=== PATIENT | female | born 1960 | race Caucasian/White ===

== ENCOUNTER → 2016-07-26 | Outpatient (CLI) | payer MEDICAID ==
[~2016-07-26] MED LIST: REGADENOSON INJ 0.4 MG/5 ML DISP.SYRIN IV ONE
--- NOTE | 2016-07-26 19:12 | DRAGON STRESS TEST REPORT ---
Intravenous Lexiscan Cardiolite stress test using single photon emmision computerized tomography. Date of procedure: Ordering Provider: Indication: Chest pain. Coronary risk factors: Resting EKG: Stress EKG:[ No changes of ischemia. Reason for termination: Protocol. Conclusions: Normal EKG and hemodynamic response to IV Lexiscan. Nuclear data: At rest the patient was given millicuries of technetium 99m sestamibi injected intravenously. As per protocol rest non gated SPECT images were obtained. Subsequently the patient was given intravenous Lexiscan at a dose of 0.4 mg in 5 mL intravenously, followed by flush with normal saline. Subsequently the stress dose of millicuries of technetium 99m sestamibi was injected intravenously. As per protocol stress gated images were obtained. Nuclear interpretation: Review of images showed that all segments of the myocardium had normal perfusion at rest, and normal perfusion post stress with IV Lexiscan. All segments of the myocardium had normal motion, contraction, and thickening by gated study. T. I D. ratio was normal at . Computer read rest, and stress left ventricular ejection fraction were %, and %, respectively. Visually both the stress and rest ejection fractions were normal, and greater than 55%. Conclusion: 1. There is no scintigraphic evidence of Lexiscan induced myocardial ischemia. 2. There is no scintigraphic evidence of myocardial infarction/scar. Recommendations: Aggressive risk factor modification, and treating the underlying co- morbidities. MTDD
== END ==
LOC: RAD 07:48
PROVIDERS: ATTEND Specialist
DX: R07.9 Chest pain, unspecified (principal); R06.09 Other forms of dyspnea
CPT/HCPCS: 93017; 78452; A9500; J2785; Q9969

== ENCOUNTER 2016-10-04 12:17 | Emergency (ER) | payer MEDICAID ==
[2016-10-04 12:27] VITALS: BP 132/95
[2016-10-04] MEDS ORDERED: NORMAL SALINE 1000 ML 1,000 ML IV PRN (12:27)
--- NOTE | 2016-10-04 12:40 | ER Document Report ---
ED GI/ - General Chief Complaint: Abdominal Pain Stated Complaint: ABDOMINAL PAIN Time seen by provider: 12:38 Mode of Arrival: Ambulatory Information source: Patient TRAVEL OUTSIDE OF THE [place] IN LAST 30 DAYS: No - HPI Patient complains to provider of: Dysuria Onset: Yesterday Timing/Duration: Gradual, Persistent Quality of pain: Achy, Cramping, Fullness, Pressure Severity at maximum: Moderate Severity in ED: Moderate Pain Level: 2 Location: Suprapubic Vaginal bleeding (Compared to normal period): None Associated symptoms: Diarrhea, Dysuria Exacerbated by: Denies Relieved by: Denies Similar symptoms previously: No Recently seen / treated by doctor: Yes Notes: 10/04/16 12:39 Patient is a 56-year-old female who presents to the emergency room complaining of suprapubic pain and pressure that's been going on since yesterday, she reports crampy pain as well, as well as dysuria, denies vaginal bleeding or discharge, she reports having diarrhea for the past 3 months and has been seen by her primary care provider for this, she denies any recent fever, states she has ongoing GI issues and therefore only eats one meal a day, reports a normal Pap smear approximately 2 weeks ago, patient denies ever having had a urinary tract or bladder infection before - Related Data Allergies/Adverse Reactions: aspirin [Aspirin] Allergy (Intermediate, Verified 10/04/16 12:24) rash, vomiting Home Medications: Current Home Medications Apixaban [Eliquis] 1 tab PO BID 10/04/16 [History] Baclofen [Baclofen] 1 tab PO BID 10/04/16 [History] Budesonide/Formoterol Fumarate [Symbicort 160-4.5 Mcg Inhaler] 1 puff IH BID 08/18 [History] Colchicine [Colchicine] 1 tab PO PRN PRN 10/04/16 [History] Diltiazem HCl 60 mg PO TID 10/04/16 [History] Omeprazole [Omeprazole] 1 tab PO BID 10/04/16 [History] Oxycodone HCl/Acetaminophen [Oxycodon-Acetaminophen 7.5-325] 1 tab PO TID [History] Oxycodone HCl/Acetaminophen [Xartemis Xr 7.5-325 mg Tablet] 2 ng PO Q12H [History] Simvastatin [Simvastatin] 1 tab PO QHS 10/04/16 [History] Past Medical History - General Information source: Patient - Social History Smoking Status: Current Every Day Smoker Family History: Reviewed & Not Pertinent Patient has suicidal ideation: No Patient has homicidal ideation: No - Past Medical History Cardiac Medical History: Reports: Hx Atrial Fibrillation, Hx Hypercholesterolemia - States in past, but not sure now, Hx Hypertension, Hx Heart Murmur Denies: Hx Congestive Heart Failure, Hx Coronary Artery Disease, Hx Heart Attack, Hx Peripheral Vascular Disease, Hx Pulmonary Embolism Pulmonary Medical History: Reports: Hx COPD, Hx Pneumonia, Hx Sleep Apnea Denies: Hx Asthma, Hx Bronchitis, Hx Respiratory Failure, Hx Tuberculosis Endocrine Medical History: Reports: Hx Diabetes Mellitus Type 2 Renal/ Medical History: Reports: Hx Ovarian Cysts. Denies: Hx Peritoneal Dialysis GI Medical History: Reports: Hx Gastroesophageal Reflux Disease, Hx Irritable Bowel - DIARRHEA TYPE, Hx Ulcer. Denies: Hx Crohn's Disease, Hx Hiatal Hernia Musculoskeltal Medical History: Reports Hx Arthritis, Denies Hx Muscular Dystrophy Psychiatric Medical History: Reports: Hx Anxiety, Hx Depression Denies: Hx Bipolar Disorder, Hx Post Traumatic Stress Disorder, Hx Schizophrenia Traumatic Medical History: Reports: Hx Fractures - Clavicle, nose, cheek bone Past Surgical History: Reports: Hx Section. Denies: Hx Appendectomy, Hx Bowel Surgery, Hx Cholecystectomy, Hx Colostomy, Hx Coronary Artery Bypass Graft, Hx Gastric Bypass Surgery, Hx Herniorrhaphy, Hx Hysterectomy, Hx Mastectomy, Hx Pacemaker, Hx Tonsillectomy, Hx Tubal Ligation - Immunizations Hx Diphtheria, Pertussis, Tetanus Vaccination: Yes Hx Pneumococcal Vaccination: 09/23/11 Review of Systems - Review of Systems Constitutional: No symptoms reported EENT: No symptoms reported Cardiovascular: No symptoms reported Respiratory: No symptoms reported Gastrointestinal: See HPI Genitourinary: See HPI Female Genitourinary: No symptoms reported Musculoskeletal: No symptoms reported Skin: No symptoms reported Hematologic/Lymphatic: No symptoms reported Neurological/Psychological: No symptoms reported -: Yes All other systems reviewed and negative Physical Exam - Vital signs Vitals: Temp Pulse Resp BP Pulse Ox 97.9 F 106 H 20 132/95 H 98 10/04/16 12:24 10/04/16 12:24 10/04/16 12:24 10/04/16 12:24 10/04/16 12:24 Interpretation: Tachycardic - General General appearance: Appears well, Alert - HEENT Head: Normocephalic, Atraumatic Eyes: Normal Pupils: PERRL - Respiratory Respiratory status: No respiratory distress Chest status: Nontender Breath sounds: Normal Chest palpation: Normal - Cardiovascular Rhythm: Regular Heart sounds: Normal auscultation Murmur: No - Abdominal Inspection: Normal Distension: No distension Bowel sounds: Normal Tenderness: Tender - Suprapubic Organomegaly: No organomegaly - Back Back: Normal, Nontender - Extremities General upper extremity: Normal inspection, Nontender, Normal color, Normal ROM , Normal temperature General lower extremity: Normal inspection, Nontender, Normal color, Normal ROM , Normal temperature, Normal weight bearing. No: Lefty's sign - Neurological Neuro grossly intact: Yes Cognition: Normal Orientation: AAOx4 [place] Coma Scale Eye Opening: Spontaneous [place] Coma Scale Verbal: Oriented [place] Coma Scale Motor: Obeys Commands [place] Coma Scale Total: 15 Speech: Normal Motor strength normal: LUE, RUE, LLE, RLE Sensory: Normal - Psychological Associated symptoms: Normal affect, Normal mood - Skin Skin Temperature: Warm Skin Moisture: Dry Skin Color: Normal Course - Vital Signs Vital signs: Temp Pulse Resp BP Pulse Ox 97.9 F 106 H 20 132/95 H 98 10/04/16 12:24 10/04/16 12:24 10/04/16 12:24 10/04/16 12:24 10/04/16 12:24 - Laboratory Result Diagrams: 10/04/16 12:50 10/04/16 15:05 Laboratory results interpreted by me: 10/04/16 10/04/16 10/04/16 12:50 12:50 15:05 WBC 11.7 H Hgb 16.0 H Hct 47.3 H RDW 14.8 H Direct Bilirubin 0.6 H AST 49 H Urine Protein 30 H Urine Urobilinogen 2.0 H Urine Ascorbic Acid 20 H Discharge - Discharge Clinical Impression: Dysuria, Pelvic pain Condition: Stable Disposition: HOME, SELF-CARE Instructions: Abdominal Pain ([facility]), Gastroenterology Additional Instructions: Follow up with your primary care provider in one to 2 days. Return to the emergency room immediately if symptoms worsen or any additional concerns. Prescriptions: Ciprofloxacin HCl [Cipro 500 mg Tablet] 500 mg PO BID #20 tablet Forms: Smoking Cessation Education
[2016-10-04 13:02] LABS: ABSOLUTE BASOPHILS # (AUTO) 0.1 10^3/uL (0.0-0.2); ABSOLUTE EOSINOPHILS # (AUTO) 0.2 10^3/uL (0.0-0.6); ABSOLUTE LYMPHOCYTES (AUTO) 3.8 10^3/uL (0.5-4.7); ABSOLUTE MONOCYTES (AUTO) 0.8 10^3/uL (0.1-1.4); ABSOLUTE NEUT (AUTO) 6.7 10^3/uL (1.7-8.2); BASOPHILS % (AUTO) 0.6 % (0-2); EOSINOPHILS % (AUTO) 2.1 % (0-6); HEMATOCRIT 47.3 % (36.0-47.0); HGB HCT DIFFERENCE 0.7; LYMPHOCYTES % (AUTO) 32.4 % (13-45); MEAN CORPUSCULAR HEMOGLOBIN 32.5 pg (27.0-33.4); MEAN CORPUSCULAR HGB CONC 33.8 g/dL (32.0-36.0); MEAN CORPUSCULAR VOLUME 96 fl (80-97); MONOCYTES % (AUTO) 7.1 % (3-13); RED BLOOD COUNT 4.93 10^6/uL (3.72-5.28); RED CELL DISTRIBUTION WIDTH 14.8 % (11.5-14.0); SEGMENTED NEUTROPHILS % (AUTO) 57.8 % (42-78); WHITE BLOOD COUNT 11.7 10^3/uL (4.0-10.5)
[2016-10-04 13:33] LABS: APPEARANCE,URINE CLOUDY; BILIRUBIN,URINE NEGATIVE (NEGATIVE); GLUCOSE, URINE NEGATIVE (NEGATIVE); KETONES,URINE NEGATIVE (NEGATIVE); LEUKOCYTE ESTERASE,URINE NEGATIVE (NEGATIVE); NITRITE,URINE NEGATIVE (NEGATIVE); PROTEIN,URINE 30 mg/dL (NEGATIVE); URINE SPECIFIC GRAVITY 1.031
[2016-10-04] MEDS ORDERED: OXYCODONE-ACETAMINOPHEN 5-325 MG TABLET PO ONE (14:29)
[2016-10-04 15:38] LABS: ALANINE AMINOTRANSFERASE 35 U/L (9-52); ALBUMIN 4.1 g/dL (3.5-5.0); ALKALINE PHOSPHATASE 118 U/L (38-126); ANION GAP 16 (5-19); ASPARTATE AMINO TRANSFERASE 49 U/L (14-36); BILIRUBIN,DIRECT 0.6 mg/dL (0.0-0.4); BILIRUBIN,TOTAL 1.1 mg/dL (0.2-1.3); BLOOD UREA NITROGEN 7 mg/dL (7-20); CALCIUM 9.7 mg/dL (8.4-10.2); CARBON DIOXIDE 23 mmol/L (22-30); CHLORIDE 104 mmol/L (98-107); CREATININE RESULT 0.54 mg/dL (0.52-1.25); GLUCOSE 105 mg/dL (75-110); LIPASE 99.8 U/L (23-300); SODIUM 143.1 mmol/L (137-145); TOTAL PROTEIN 7.4 g/dL (6.3-8.2)
== END 2016-10-04 16:22 | disposition home or self-care (01) ==
LOC: ER 12:17
DX: R10.2 Pelvic and perineal pain (principal); R30.0 Dysuria; R19.7 Diarrhea, unspecified; R00.0 Tachycardia, unspecified; I10 Essential (primary) hypertension; E11.9 Type 2 diabetes mellitus without complications; J44.9 Chronic obstructive pulmonary disease, unspecified; F17.200 Nicotine dependence, unspecified, uncomplicated; Z87.42 Personal history of other diseases of the female genital tract; Z88.6 Allergy status to analgesic agent; Z87.19 Personal history of other diseases of the digestive system
CPT/HCPCS: 36415; 76380; 80053; 81001; 83690; 85025; 87086; 99284

== ENCOUNTER → 2017-07-10 | Outpatient (CLI) | payer MEDICAID ==
--- NOTE | 2017-07-10 20:00 | RADIOLOGY REPORT (SQ) ---
EXAM DESCRIPTION: MRI CERVICAL SPINE WITHOUT COMPLETED DATE/TIME: 07/10/2017 6:40 pm REASON FOR STUDY: SPINAL STENOSIS,CERVICAL REGION/OTHER INTERVERTEBRAL DISC DISPLACEMENT,LUMB M48.02 SPINAL STENOSIS, CERVICAL REGION M51.26 OTHER INTERVERTEBRAL DISC DISPLACEMENT, LUMBAR REGION COMPARISON: 09/11/2015 TECHNIQUE: Sagittal and Axial imaging includes T1, T2, STIR and gradient echo sequences. LIMITATIONS: None. FINDINGS: ALIGNMENT: Normal. VERTEBRAE: Intact. BONE MARROW: Reactive endplate changes C4-5, C5-6, C6-7. DISCS: Generalized loss of T2 signal and loss of height. HARDWARE: None in the spine. CORD AND BASE OF BRAIN: Normal in size and signal intensity. SOFT TISSUES: No soft tissue masses. C1-C2: No significant spinal stenosis. C2-C3: No significant spinal stenosis or exit foraminal stenosis. C3-C4: Disc osteophyte complex asymmetric left left lateral mass hypertrophy. . Flattening of the a nterior thecal sac. Moderate narrowing of the exit foramina left greater than right. C4-C5: Disc osteophyte complex. Flattening of the anterior thecal sac. Moderate to marked narrowing of the exit foramina. C5-C6: Disc osteophyte complex with moderate flattening of the anterior thecal sac. Marked narrowing of the exit foramina left greater than right. C6-C7: Prominent disc osteophyte complex with marked flattening of the anterior thecal. Severe narro wing of the exit foramina and severe spinal stenosis. Obliteration of CSF spaces. C7-T1: No significant spinal stenosis or exit foraminal stenosis. UPPER THORACIC: Incompletely imaged. No significant spinal stenosis or exit foraminal stenosis. OTHER: No other significant finding. IMPRESSION: Multilevel spondylosis with spinal stenosis and exit foraminal stenosis. Most severe changes are at C6-7 where there is severe narrowing of the exit foramina and severe spina l stenosis. Slightly worse than previous. TECHNICAL DOCUMENTATION: JOB ID: [id number] [employer]- All Rights Reserved
--- NOTE | 2017-07-11 08:16 | RADIOLOGY REPORT (SQ) ---
EXAM DESCRIPTION: MRI LUMBAR SPINE WITHOUT COMPLETED DATE/TIME: 07/10/2017 6:57 pm REASON FOR STUDY: SPINAL STENOSIS,CERVICAL REGION/OTHER INTERVERTEBRAL DISC DISPLACEMENT,LUMB M48.02 SPINAL STENOSIS, CERVICAL REGION M51.26 OTHER INTERVERTEBRAL DISC DISPLACEMENT, LUMBAR REGION COMPARISON: CT abdomen pelvis 10/04/2016 MRI lumbar spine 09/11/2015 Lumbar spine plain films 07/08/2015 TECHNIQUE: Sagittal and Axial imaging includes T1, T2, STIR and gradient echo sequences. Coronal T2/ HASTE imaging. LIMITATIONS: None. FINDINGS: VISUALIZED UPPER ABDOMEN: Limited evaluation. No acute or suspicious findings suggested. SEGMENTATION: No transitional anatomy. The lowest well-developed disc space is labeled L5-S1. ALIGNMENT: Anatomic. VERTEBRAE: Intact. BONE MARROW: Normal. No marrow replacement or reactive changes. DISC SIGNAL: Disc space loss of height and decreased T2 weighted intervertebral disc signal at T11-12 and L4-5. POSTERIOR ELEMENTS: Generally intact. No pars defect evident. HARDWARE: None in the spine. CORD AND CONUS: Normal in size and signal intensity. Conus at the L1-2 level. SOFT TISSUES: No aortic aneurysm seen. No bulky retroperitoneal adenopathy or mass. No paraspinal mas s or fluid. T11-12: At the upper edge of the field of view. Mild bilateral facet hypertrophy. No significant c entral or foraminal encroachment. T12-L1: Unremarkable L1-L2: Mild bilateral facet hypertrophy. No central or foraminal stenosis. L2-L3: Mild bilateral facet hypertrophy. No central or foraminal stenosis. L3-L4: Borderline central canal narrowing results from broad diffuse posterior disc bulge and bulky b ilateral facet and ligament hypertrophy best shown on axial T2 image 14. No significant foraminal na rrowing. L4-L5: Borderline central canal narrowing results from broad diffuse posterior disc bulge and bony sp urring and moderate bilateral facet and ligament hypertrophy. This is best shown on axial T2 image 2 0. There is mild bilateral inferior foraminal narrowing without exiting L4 nerve root impingement. L5-S1: Bulky bilateral facet hypertrophy right greater than left. Edema along the right L5-S1 facet on STIR images. No central canal narrowing. Moderate right, mild left foraminal narrowing without d efinite exiting L5 nerve root impingement. SACRUM: Visualized upper sacrum intact. OTHER: No other significant findings. IMPRESSION: Mild degenerative changes as above. TECHNICAL DOCUMENTATION: JOB ID: [id number] [employer]- All Rights Reserved
== END ==
LOC: RAD 17:26
PROVIDERS: ATTEND Physician Assistant
DX: M48.02 Spinal stenosis, cervical region (principal); M51.26 Other intervertebral disc displacement, lumbar region
CPT/HCPCS: 72141; 72148

== ENCOUNTER → 2018-05-01 | Outpatient (CLI) | payer MEDICAID ==
--- NOTE | 2018-05-01 14:58 | RADIOLOGY REPORT (SQ) ---
EXAM DESCRIPTION: KNEE LEFT 4 VIEW COMPLETED DATE/TIME: 05/01/2018 2:47 pm REASON FOR STUDY: M25.569 PAIN IN UNSPECIFIED KNEE M25.569 PAIN IN UNSPECIFIED KNEE chronic left kn ee pain, no known injury COMPARISON: None. NUMBER OF VIEWS: Four views. TECHNIQUE: AP, lateral, and both oblique radiographic images acquired of the left knee. LIMITATIONS: None. FINDINGS: MINERALIZATION: Normal. BONES: No acute fracture or dislocation. No worrisome bone lesions. JOINT: No effusion. Mild medial compartment joint space narrowing. Mild medial and lateral femoral condyles osteophytes SOFT TISSUES: No soft tissue swelling. No radio-opaque foreign body. OTHER: No other significant finding. IMPRESSION: Mild medial compartment joint space narrowing. No acute fracture or malalignment. No j oint effusion TECHNICAL DOCUMENTATION: JOB ID: [id number] [employer]- All Rights Reserved Reading location - IP/workstation name: [email or web address]
--- NOTE | 2018-05-01 15:00 | RADIOLOGY REPORT (SQ) ---
EXAM DESCRIPTION: KNEE RIGHT 4 VIEWS COMPLETED DATE/TIME: 05/01/2018 2:47 pm REASON FOR STUDY: M25.569 PAIN IN UNSPECIFIED KNEE M25.569 PAIN IN UNSPECIFIED KNEE chronic right k nee pain, no known injury COMPARISON: None. NUMBER OF VIEWS: Four views. TECHNIQUE: AP, lateral, and both oblique radiographic images acquired of the right knee. LIMITATIONS: None. FINDINGS: MINERALIZATION: Normal. BONES: No acute fracture or dislocation. No worrisome bone lesions. JOINT: No effusion. Mild medial compartment joint space narrowing and bony spurring SOFT TISSUES: No soft tissue swelling. No radio-opaque foreign body. OTHER: No other significant finding. IMPRESSION: No acute fracture or malalignment. Mild medial compartment joint space narrowing and mushtaq ny spurring TECHNICAL DOCUMENTATION: JOB ID: [id number] [employer]- All Rights Reserved Reading location - IP/workstation name: [email or web address]
== END ==
LOC: RAD 14:19
PROVIDERS: ATTEND Physician Assistant
DX: M25.562 Pain in left knee (principal); M25.561 Pain in right knee

== ENCOUNTER 2018-08-15 09:56 | Observation (INO) | payer MEDICAID ==
--- NOTE | 2018-08-15 10:01 | ER Document Report ---
ED Medical Screen (RME) - General Chief Complaint: Trouble Walking Stated Complaint: STROKE SYMPTOMS Time Seen by Provider: 08/15/18 09:58 Primary Care Provider: YUKO VÁSQUEZ PA [Primary Care Provider] - Follow up as needed TRAVEL OUTSIDE OF THE [place] IN LAST 30 DAYS: No - HPI Notes: 08/15/18 10:00 Patient presented to the emergency room complaining of difficulty walking which started last night. She states she woke up this morning and still she is unable to walk straight and has to be assisted while walking. Patient is tearful and could not give me any more history. Code stroke alert is activated immediately. Patient to be evaluated for stroke. Patient is uncooperative for initial physical exam. Complete physical exam to be obtained by the ED physician on the main ED side. - Related Data Allergies/Adverse Reactions: aspirin [Aspirin] Allergy (Intermediate, Verified 10/04/16 12:24) rash, vomiting Past Medical History - Past Medical History Cardiac Medical History: Reports: Hx Atrial Fibrillation, Hx Hypercholesterolemia - States in past, but not sure now, Hx Hypertension, Hx Heart Murmur Denies: Hx Congestive Heart Failure, Hx Coronary Artery Disease, Hx Heart Attack, Hx Peripheral Vascular Disease, Hx Pulmonary Embolism Pulmonary Medical History: Reports: Hx COPD, Hx Pneumonia, Hx Sleep Apnea Denies: Hx Asthma, Hx Bronchitis, Hx Respiratory Failure, Hx Tuberculosis Endocrine Medical History: Reports: Hx Diabetes Mellitus Type 2 Renal/ Medical History: Reports: Hx Ovarian Cysts. Denies: Hx Peritoneal Dialysis GI Medical History: Reports: Hx Gastroesophageal Reflux Disease, Hx Irritable Bowel - DIARRHEA TYPE, Hx Ulcer. Denies: Hx Crohn's Disease, Hx Hiatal Hernia, Hx Pancreatitis Musculoskeltal Medical History: Reports Hx Arthritis, Denies Hx Muscular Dystrophy Psychiatric Medical History: Reports: Hx Anxiety, Hx Depression Denies: Hx Bipolar Disorder, Hx Post Traumatic Stress Disorder, Hx Schizophrenia Traumatic Medical History: Reports: Hx Fractures - Clavicle, nose, cheek bone Past Surgical History: Reports: Hx Section. Denies: Hx Appendectomy, Hx Bowel Surgery, Hx Cholecystectomy, Hx Colostomy, Hx Coronary Artery Bypass Graft, Hx Gastric Bypass Surgery, Hx Herniorrhaphy, Hx Hysterectomy, Hx Mastectomy, Hx Pacemaker, Hx Tonsillectomy, Hx Tubal Ligation - Immunizations Hx Diphtheria, Pertussis, Tetanus Vaccination: Yes Doctor's Discharge - Discharge Referrals: YUKO VÁSQUEZ PA [Primary Care Provider] - Follow up as needed
--- NOTE | 2018-08-15 10:17 | RADIOLOGY REPORT (SQ) ---
EXAM DESCRIPTION: CT HEAD WITHOUT COMPLETED DATE/TIME: 08/15/2018 10:06 am REASON FOR STUDY: Unsteady Gait COMPARISON: None. TECHNIQUE: Axial images acquired through the brain without intravenous contrast. Images reviewed wi th bone, brain and subdural windows. Additional sagittal and coronal reconstructions were generated. Images stored on PACS. All CT scanners at this facility use dose modulation, iterative reconstruction, and/or weight based d osing when appropriate to reduce radiation dose to as low as reasonably achievable (ALARA). [facility]: Dose Right [facility]: CareDose [facility]: Dose Right [facility]: Teradose 4D [facility]: [employer] RADIATION DOSE: CT Rad equipment meets quality standard of care and radiation dose reduction techniq ues were employed. CTDIvol: 53.2 mGy. DLP: 1070 mGy-cm. mGy. LIMITATIONS: None. FINDINGS: VENTRICLES: Normal size and contour. CEREBRUM: No masses. No hemorrhage. No midline shift. No evidence for acute infarction. Normal gra y/white matter differentiation. No areas of low density in the white matter. CEREBELLUM: No masses. No hemorrhage. No alteration of density. No evidence for acute infarction. EXTRAAXIAL SPACES: No fluid collections. No masses. ORBITS AND GLOBE: No intra- or extraconal masses. Normal contour of globe without masses. CALVARIUM: No fracture. PARANASAL SINUSES: No fluid or mucosal thickening. SOFT TISSUES: No mass or hematoma. OTHER: No other significant finding. IMPRESSION: No CT evidence of acute stroke or hemorrhage. EVIDENCE OF ACUTE STROKE: NO. Findings reported to Dr. Eastman, 10:07 AM, 08/15/2018 COMMENT: Quality ID # [id number]: Final reports with documentation of one or more dose reduction techniques (e.g., Automated exposure control, adjustment of the mA and/or kV according to patient size, use of iterative reconstruction technique) TECHNICAL DOCUMENTATION: JOB ID: [id number] [employer]- All Rights Reserved Reading location - IP/workstation name: [email or web address]
[2018-08-15 10:50] LABS: INTERNATIONAL RATION (INR) 0.85
[2018-08-15 10:51] LABS: ABSOLUTE BASOPHILS # (AUTO) 0.1 10^3/uL (0.0-0.2); ABSOLUTE EOSINOPHILS # (AUTO) 0.1 10^3/uL (0.0-0.6); ABSOLUTE LYMPHOCYTES (AUTO) 2.9 10^3/uL (0.5-4.7); ABSOLUTE MONOCYTES (AUTO) 0.7 10^3/uL (0.1-1.4); ABSOLUTE NEUT (AUTO) 7.3 10^3/uL (1.7-8.2); BASOPHILS % (AUTO) 0.6 % (0-2); EOSINOPHILS % (AUTO) 1.3 % (0-6); HEMATOCRIT 47.6 % (36.0-47.0); HEMOGLOBIN 15.7 g/dL (12.0-15.5); MEAN CORPUSCULAR HEMOGLOBIN 30.6 pg (27.0-33.4); MEAN CORPUSCULAR VOLUME 93 fl (80-97); MONOCYTES % (AUTO) 6.5 % (3-13); PARTIAL THROMBOPLASTIN TIME 25.6 SEC (23.5-35.8); PLATELET COUNT 249 10^3/uL (150-450); RED BLOOD COUNT 5.13 10^6/uL (3.72-5.28); RED CELL DISTRIBUTION WIDTH 15.3 % (11.5-14.0); SEGMENTED NEUTROPHILS % (AUTO) 65.6 % (42-78); TOTAL CELLS COUNTED % (AUTO) 100 %; WHITE BLOOD COUNT 11.2 10^3/uL (4.0-10.5)
--- NOTE | 2018-08-15 11:04 | RADIOLOGY REPORT (SQ) ---
EXAM DESCRIPTION: CHEST SINGLE VIEW COMPLETED DATE/TIME: 08/15/2018 10:47 am REASON FOR STUDY: Unsteady Gait COMPARISON: 03/09/2014. NUMBER OF VIEWS: One view. TECHNIQUE: Single frontal radiographic view of the chest acquired. LIMITATIONS: None. FINDINGS: LUNGS AND PLEURA: No opacities, masses or pneumothorax. No pleural effusion. MEDIASTINUM AND HILAR STRUCTURES: No masses. Contour normal. HEART AND VASCULAR STRUCTURES: Heart enlarged without failure. Normal vasculature. BONES: No acute findings. HARDWARE: None in the chest. OTHER: No other significant finding. IMPRESSION: STABLE CARDIOMEGALY. NO ACUTE FINDINGS. TECHNICAL DOCUMENTATION: JOB ID: [id number] [employer]- All Rights Reserved Reading location - IP/workstation name: [email or web address]
[2018-08-15 11:05] LABS: ALANINE AMINOTRANSFERASE 13 U/L (9-52); ALBUMIN 4.8 g/dL (3.5-5.0); ALKALINE PHOSPHATASE 133 U/L (38-126); ANION GAP 11 (5-19); ASPARTATE AMINO TRANSFERASE 20 U/L (14-36); BILIRUBIN,DIRECT 0.4 mg/dL (0.0-0.4); BILIRUBIN,TOTAL 0.5 mg/dL (0.2-1.3); BLOOD UREA NITROGEN 19 mg/dL (7-20); CARBON DIOXIDE 28 mmol/L (22-30); CHLORIDE 100 mmol/L (98-107); CREATINE KINASE 27 U/L (30-135); GLUCOSE 123 mg/dL (75-110); POTASSIUM 3.7 mmol/L (3.6-5.0); TOTAL PROTEIN 7.8 g/dL (6.3-8.2)
[2018-08-15 11:10] LABS: VENOUS BLOOD BASE EXCESS 3.9 mmol/L; VENOUS BLOOD HCO3 29.9 mmol/L (20-32); VENOUS BLOOD PCO2 49.2 mmHg (35-63); VENOUS BLOOD PH 7.4 (7.30-7.42)
[2018-08-15 11:14] LABS: CREATINE KINASE MB 0.49 ng/mL (<4.55)
[2018-08-15 11:15] LABS: TROPONIN I < 0.012 ng/mL
--- NOTE | 2018-08-15 11:55 | RADIOLOGY REPORT (SQ) ---
EXAM DESCRIPTION: CTA HEAD COMPLETED DATE/TIME: 08/15/2018 11:35 am REASON FOR STUDY: stroke, look for LVO COMPARISON: None. TECHNIQUE: Post IV contrast scanning, thin section axial imaging through the brain to evaluate the a rterial structures. Source and MIP images are saved and reviewed on PACS. Advanced 3D imaging as volume-rendering, MIPs, SSD performed? yes All CT scanners at this facility use dose modulation, iterative reconstruction, and/or weight based d osing when appropriate to reduce radiation dose to as low as reasonably achievable (ALARA). [facility]: Dose Right [facility]: CareDose [facility]: Dose Right [facility]: Teradose 4D [facility]: [employer] CONTRAST TYPE AND DOSE: 70 mL Omnipaque 350- low osmolar. RENAL FUNCTION: BUN 19 creatinine 0.55. LIMITATIONS: None. FINDINGS: INTERNAL CAROTID ARTERIES: Patent. There is calcified plaque in the right and left bailey nous internal carotid arteries. Suspect focal stenosis in the cavernous left internal carotid artery due to calcified plaque. [place]: The anterior, middle, posterior cerebral arteries are all patent. No evidence of a neurysm or focal stenosis. POSTERIOR CIRCULATION: The distal vertebral arteries are patent as is the basilar artery. No aneurysm . BRAIN: No gross enhancing lesions as visualized. The superior cerebral hemispheres are not included in the field of view. BONES: Intact as visualized. SINUSES: No fluid or mucosal thickening. OTHER: No other significant finding. 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 SUSPE CT FOCAL STENOSIS IN THE CAVERNOUS LEFT INTERNAL CAROTID ARTERY DUE TO CALCIFIED PLAQUE. NO OCCLUDED VESSELS. NO CTA EVIDENCE OF STENOSIS OR ANEURYSM OF THE [place]. TECHNICAL DOCUMENTATION: JOB ID: [id number] Quality ID # [id number]: Final reports with documentation of one or more dose reduction techniques (e.g., Au tomated exposure control, adjustment of the mA and/or kV according to patient size, use of iterative reconstruction technique) 2010 [employer]- All Rights Reserved Reading location - IP/workstation name: [email or web address]
--- NOTE | 2018-08-15 11:58 | RADIOLOGY REPORT (SQ) ---
EXAM DESCRIPTION: CTA NECK COMPLETED DATE/TIME: 08/15/2018 11:35 am REASON FOR STUDY: stroke, look for LVO COMPARISON: None. TECHNIQUE: Axial dynamic scanning technique with dynamic contrast enhancement through the extra-erecting crane operator nial carotid and vertebral arteries. Multiplanar reconstruction. 3-D MIPS and Volume-rendered imag es acquired at the workstation and saved to PACS. Images are reviewed in soft tissue, bone, lung w indows. All CT scanners at this facility use dose modulation, iterative reconstruction, and/or weight based d osing when appropriate to reduce radiation dose to as low as reasonably achievable (ALARA). [facility]: Dose Right [facility]: CareDose [facility]: Dose Right [facility]: Teradose 4D [facility]: 5 O'Clock Records CONTRAST TYPE AND DOSE: contrast/concentration: Isovue 350.00 mg/ml; Total Contrast Delivered: 70.0 ml; Total Saline Delivered: 75.0 ml RENAL FUNCTION: BUN 19 creatinine 0.55. LIMITATIONS: None. FINDINGS: AORTIC ARCH: Normal three-vessel origin. Bilateral subclavian arteries are patent. No d issection. RIGHT CAROTIDS: Patent common, internal and external carotid arteries without suggestion of significa nt stenosis or irregular plaque. No dissection. Focal calcified plaque in the proximal internal car otid artery. RIGHT VERTEBRAL: Patent. No dissection. LEFT CAROTIDS: Patent common, internal and external carotid arteries without suggestion of significan t stenosis or irregular plaque. No dissection. Focal calcified plaque in the proximal internal antonio tid artery. LEFT VERTEBRAL: Patent. No dissection. OTHER: No other significant finding. OTHER: 3-D reconstructions confirm findings. IMPRESSION: FOCAL CALCIFIED PLAQUE IN THE PROXIMAL RIGHT AND LEFT INTERNAL CAROTID ARTERIES WITH NO SIGNIFICANT STENOSIS. OTHERWISE UNREMARKABLE CTA OF THE EXTRA-CRANIAL CAROTID AND VERTEBRAL ARTERIES . COMMENT: Quality ID #[id number]: Measurements of distal internal carotid diameter were used as the denomina tor for stenosis measurement. TECHNICAL DOCUMENTATION: JOB ID: [id number] Quality ID # [id number]: Final reports with documentation of one or more dose reduction techniques (e.g., Au tomated exposure control, adjustment of the mA and/or kV according to patient size, use of iterative reconstruction technique) 2010 [employer]- All Rights Reserved Reading location - IP/workstation name: [email or web address]
[2018-08-15] MEDS ORDERED: ONDANSETRON HCL INJ/PF 4 MG/2 ML SDV IV ONE (13:23)
--- NOTE | 2018-08-15 13:48 | EKG REPORT ---
SEVERITY:- ABNORMAL ECG - ATRIAL FIBRILLATION, V-RATE 88-135 BORDERLINE R WAVE PROGRESSION, ANTERIOR LEADS LOW VOLTAGE EKG : Confirmed by: Paulino De Jesus MD 15-Aug-2018 13:47:35
--- NOTE | 2018-08-15 14:11 | ER Document Report ---
Entered by FREDY JACKSON SCRIBE 08/15/18 1048 Acting as scribe for:LISA GRAY DO ED Neuro Symptoms/Deficit - General Chief Complaint: S/S of Possible Stroke Stated Complaint: STROKE SYMPTOMS Time Seen by Provider: 08/15/18 09:58 Mode of Arrival: Wheelchair Information source: Patient Notes: Patient is a 58 year old female with afib, COPD presents to the emergency department complaining of difficulty walking, difficulty speaking and weakness onset this morning. Patient states when she woke up this morning, she noticed she had some difficulty speaking and could not walk in a straight line further stating she was walking sideways. She also states she is very weak and has no energy. Patient states her last known normal was last night. Of significance, patient states she stopped taking her Eloquis 2 days ago for a scheduled dental appointment today. Patient is currently taking Trintellix, Advair, Olmerprazole, Eliquis (5 mg) Lasix, vitamin D, Rexulti. TRAVEL OUTSIDE OF THE [place] IN LAST 30 DAYS: No - Related Data Allergies/Adverse Reactions: aspirin [Aspirin] Allergy (Intermediate, Verified 08/15/18 10:17) rash, vomiting Past Medical History - General Information source: Patient - Social History Smoking Status: Current Every Day Smoker Cigarette use (# per day): Yes Chew tobacco use (# tins/day): No Smoking Education Provided: No Frequency of alcohol use: Rare Drug Abuse: None Family History: Reviewed & Not Pertinent - Past Medical History Cardiac Medical History: Reports: Hx Atrial Fibrillation, Hx Hypercholesterolemia - States in past, but not sure now, Hx Hypertension, Hx Heart Murmur Pulmonary Medical History: Reports: Hx COPD, Hx Pneumonia, Hx Sleep Apnea Endocrine Medical History: Reports: Hx Diabetes Mellitus Type 2 Renal/ Medical History: Reports: Hx Ovarian Cysts GI Medical History: Reports: Hx Gastroesophageal Reflux Disease, Hx Irritable Bowel - DIARRHEA TYPE, Hx Ulcer Musculoskeletal Medical History: Reports Hx Arthritis Psychiatric Medical History: Reports: Hx Anxiety, Hx Depression Traumatic Medical History: Reports: Hx Fractures - Clavicle, nose, cheek bone Past Surgical History: Reports: Hx Section - Immunizations Hx Diphtheria, Pertussis, Tetanus Vaccination: Yes Hx Pneumococcal Vaccination: 09/23/11 Review of Systems - Review of Systems Constitutional: No symptoms reported EENT: No symptoms reported Cardiovascular: No symptoms reported Respiratory: No symptoms reported Gastrointestinal: No symptoms reported Genitourinary: No symptoms reported Female Genitourinary: No symptoms reported Musculoskeletal: See HPI Skin: No symptoms reported Hematologic/Lymphatic: No symptoms reported Neurological/Psychological: See HPI, Weakness, Speech impairment -: Yes All other systems reviewed and negative Physical Exam - Notes Notes: GENERAL: Alert, interacts well. See NIH scale. HEAD: Normocephalic, atraumatic. EYES: Pupils equal, round, and reactive to light. Extraocular movements intact. ENT: Oral mucosa moist, tongue midline. NECK: Full range of motion. Supple. Trachea midline. LUNGS: Tachypneic. Shallow respirations. Crackles at the bases. Inspiratory squeaks. No respiratory distress. HEART: Tachycardic. Regular rhythm. No murmurs, gallops, or rubs. ABDOMEN: Soft, non-tender. No guarding, rigidity, or rebound. Non-distended. Bowel sounds present in all 4 quadrants. EXTREMITIES: Moves all 4 extremities spontaneously. Tremor when elevating hands bilaterally. No edema, radial and dorsalis pedis pulses 2/4 bilaterally. No cyanosis. NEUROLOGICAL: Alert and oriented x3. Mild right sided weakness in the BUE and BLE. See NIH scale. Difficulty cooperating with visual field testing. Continually looks at my fingers rather than looking at my nose. Binocular diplopia resolves each time I cover 1 of her eyes. PSYCH: Normal affect, normal mood. SKIN: Warm, dry, normal turgor. No rashes or lesions noted. Course - Re-evaluation Re-evalutation: 08/15/18 14:08 CBC shows leukocytosis at 11.2, hemoglobin is elevated at 15.7, platelets normal, coags unremarkable, venous blood gas unremarkable, lactic acid elevated at 2.3 but no evidence of sepsis, glucose elevated 129, cardiac enzymes negative, proBNP mildly elevated at 526. Chest x-ray shows no acute process, head CT shows no acute process or bleed, head and neck CTA show some stenosis of the internal carotid arteries some calcified plaque of the internal carotid arteries, suspect focal stenosis in the cavernous left internal carotid artery due to calcified plaque. I did discuss this finding with Dr. New the neuro int erventionalist at [facility]. He agrees that this is not an acute finding would not be intervened on at this time. Patient's been rechecked several times, complains of nausea but actually states her symptoms are improving. Denies any pain. Patient was rechecked and is now able to lift her left leg off the bed without any difficulty as well as the right leg off of the bed without any difficulty. Patient and family members understand why she did not receive TPA. Patient was awake upstroke and therefore not eligible for TPA. Patient's risk factors include atrial fibrillation and the fact that she was told to stop her Eliquis for a dental procedure that was coming up. Patient was discussed with hospitalist Dr. Richards who agrees to admit the patient to his service on the [facility]. - Laboratory Result Diagrams: 08/15/18 10:15 08/15/18 10:15 - EKG Interpretation by Me Additional EKG results interpreted by me: 08/15/18 14:09 EKG shows atrial fibrillation rate of 112 with a ventricular rate of 88-135. There are a few PVCs, incomplete right bundle branch block, poor R wave pr ogression, no ST segment elevations or depressions, no ischemia per my interpretation. ED Alteplase Inc/Exc Criteria - Date/Time patient last known well: Date/Time: 08/14/2018 - Date/Time patient arrived in ED: _: 08/15/2018 09:58 - Inclusion Criteria: 1: Patient presented to ED within 3 hours of acute ischemic stroke symptom onset? -: No 2: Did baseline CT exclude intracranial hemorrhage and/or other risk factors? -: Yes 3: Is the age of the patient 18 years of age or greater? -: Yes : If any of the above questions are answered "NO" then stop, patient is not a candidate for Alteplase, : If all of the above questions are answered "YES" then continue with Exclusion Criteria. - Exclusion Criteria: 1: Is there evidence of intracranial hemorrhage on baseline CT? 2: Is there suspicion of subarachnoid hemorrhage (even if CT negative)? 3: Is there a history of serious head trauma, recent previous stroke or TN within 3 months? 4: Does the patient have a clinical presentation consistent with TN or post-TN pericarditis? 5: Is there history of intracranial hemorrhage? 6: On repeated measurement is Systolic BP greater than 185mmHg or Diastolic BP greater that 110 mmHg and is aggressive treatment needed to reduce blood pressure to these limits (e.g. constant infusion of an anti-hypertensive)? 7: Did the patient awake with stroke symptoms? 8: Has the patient had a lumbar puncture or an arterial puncture at a non- compressile site within 7 days? 9: With in the last 14 days did the patient have surgery or major trauma? 10: Is the patient or less than 2 weeks? 11: Was there any active bleeding or acute trauma? 12: Does the patient have intracranial neoplasm, arteriovenous malformation or aneurysm? 13: Does the patient have abnormal glucose (less than 50 or greater than 400mg/dl)? Record glucose in Comment. 14: Patient has rapidly improving symptoms at the time Alteplase is to be Administered. 15: Does the patient have any risks for bleeding, including but not limited to: a.: Current use of Coumadin with PT greater than 15 seconds or INR greater than 1.7. b.: Current use of Pradaxa (Dabigatran). c.: Heparin administereed within the past 48 hours and PTT elevated. d.: Platelet count less than 100,000/mm. e.: Major surgery or serious trauma within 14 days. f.: Gastrointestinal or gynecological urinary bleeding within 14 days. g.: Myocardial Infarction (TN) within 3 months. : If the answer to any of the above questions is "YES" then stop, the patient is not a candidate for Alteplase. : If the answer to all of the above questions is "NO" then the patient may be eligible for the Administration of Alteplase. : If the patient is noted to have seizure activity at onset of Stroke symptoms; Consult Neurologist for further evaluation. - The patient is: -: Included and is eligible to receive Alteplase. *Initiate bed placement at higher level of care* --: No Reviewed risks & benefits of thrombolytic therapy: I have reviewed the risks and benefits of thrombolytic therapy with the patient and/or his/her family. Yes -: Excluded and not eligible to receive Alteplase for the above exclusions. --: Yes -: Excluded and not eligible to receive Alteplase for other reasons (specify in comments): - Diagnosis of TIA: -: Patient presented with transient symptoms that are now resolved and no other neurologic findings are currently present. List symptoms in comments. -: Patient is NOT a candidate for tPA. -: ____(put name in comment) has been consulted for admission and continued evaluation of risk factor assessment. ED NIH Stroke Scale - NIH Stroke Scale *: 1. NIH scale should be completed with appropriate accompanying assessment tools. *: 2. The NIH should reflect what the patient is capable of doing and should not be coached by the clinician. 1a. Level of Consciousness: 0=Alert;keenly responsive -: 1=Drowsy -: 2=Obtunded -: 3=Coma/unresponsive or reflex to noxious stimuli. 1a. Responses: 0 1b. Orientation Questions: a. What month is it? -: b. How old are you? -: 0=Answers both questions correctly. -: 1=Answers one question correctly or patient is intubated or has orotracheal trauma. -: 2=Answers neither question correctly. 1b. Responses: 1 - States it is August 1996. 1c. Response to commands: a. Open and close eyes? -: b. Electrical Accessories Assembler and release hand? -: Credit is given despite weakness. Demonstration of task is permitted. Substitute command if hands cannot be used. -: 0=Performs both tasks correctly -: 1=Performs one task correctly -: 2=Performs neither task correctly 1c. Responses: 0 2. Gaze: Establish eye contact and instruct patient to "Follow my finger" -: 0=Normal -: 1=Partial gaze palsy. Gaze is abnormal in one or both eyes, but where forced deviation or total gaze paresis is not present. -: 2=Forced deviation or total gaze paresis. 2. Responses: 0 3. Visual [place]: Sees fingers in all four quadrants. -: 0=No visual loss. -: 1=Partial hemianopsia. -: 2=Complete hemianopsia. -: 3=Bilateral hemianopsia (including Cortical blindness) 3. Responses: 0 - Binocular diplopia 4. Facial Movement: Instruct patient to: -: a. Show me your teeth -: b. Raise your eyebrows -: c. Close your eyes -: d. Smile -: 0=Normal symmetrical movement -: 1=Minor paralysis (flattened nasolabial fold, asymmetry on smiling). -: 2=Partial paralysis (total or near total paralysis of lower face). -: 3=Complete paralysis of upper and lower face 4. Responses: 0 5. Motor functions (left arm): Alternate sides and extend each arm with palms down (90 degrees if sitting or 45 degrees for supine). -: 0=No drift;limb holds for full 10 seconds. -: 1=Drift; limb holds but drifts down before full 10 seconds, but does not hit bed. -: 2=Some effort against gravity; limb cannot get to or maintain position. -: 3=No effort against gravity; limb falls. -: 4=No movement. -: UN=Amputation, joint fusion, explain in comments. 5. Responses (left arm): 0 5. Motor Functions (right arm): Alternate sides and extend each arm with palms down (90 degrees if sitting or 45 degrees for supine). -: 0=No drift;limb holds for full 10 seconds. -: 1=Drift; limb holds but drifts down before full 10 seconds, but does not hit bed. -: 2=Some effort against gravity; limb cannot get to or maintain position. -: 3=No effort against gravity; limb falls. -: 4=No movement. -: UN=Amputation, joint fusion, explain in comments. 5. Responses (right arm): 0 6. Motor Functions (left leg): With patient lying supine, alternate sides and extend each leg (30 degrees always while supine). -: 0=No drift, leg holds position for full 5 seconds -: 1=Drift; leg falls before full 5 seconds but does not hit bed. -: 2=Some effort against gravity, leg falls to bed but some effort against g ravity. -: 3=No effort against gravity, leg falls to bed immediately. -: 4=No movement. -: UN=Amputation, joint fusion; explain in comments. 6. Responses (left leg): 2 6. Motor Functions (right leg): With patient lying supine, alternate sides and extend each leg (30 degrees always while supine). -: 0=No drift, leg holds position for full 5 seconds -: 1=Drift; leg falls before full 5 seconds but does not hit bed. -: 2=Some effort against gravity, leg falls to bed but some effort against gravity. -: 3=No effort against gravity, leg falls to bed immediately. -: 4=No movement. -: UN=Amputation, joint fusion; explain in comments. 6. Responses (right leg): 1 7. Limb Ataxia: With eyes open instruct patient to: -: a. "Touch your finger to your nose". -: b. "Touch your heel to your weems" -: 0=Absent -: 1=Present in one limb. -: 2=Present in two limbs. -: UN=Amputation or joint fusion; explain in comments. 7. Responses: 0 8. Sensory: Test sensation using pinprick or noxious stimuli. Test as many body parts as possible. -: 0=Normal;no sensory loss -: 1=Mile to moderate sensory loss (patient feels pin prick but is less sharp on affected side). -: 2=Severe or total sensory loss. 8. Responses: 0 9. Best Language: Instruct patient to: -: a. "Describe what you see in this picture." -: b. "Name the items in this picture." -: c. "Read these sentences." -: 0=No aphasia, normal -: 1=Mild to moderate aphasia. -: 2=Severe aphasia -: 3=Mute, global aphasia, no usable speech or auditory comprehension. 9. Responses: 0 10. Articulation, Dysarthia: Instruct patient to: -: "Read these words" or "Repeat these words" -: 0=Normal -: 1=Mild to moderate; patient may slur some words but can be understood without difficulty. -: 2=Severe; patients speech so slurred as to be unintelligible in the absence of dysphasia. -: UN=Intubated or other physical barrier, explain in comments. 10. Responses: 1 11. Extinction or inattention: 0=No abnormality -: 1= Visual, tactile, auditory, spatial, or personal inattention or extinction to bilateral simulation in one or the sensory modalities. -: 2=Profound claudia-inattention or claudia-inattention to more than one modality; does not recognize own hand. 11. Responses: 1 Total Score: 6 Discharge - Discharge Clinical Impression: Stroke Qualifiers: CVA mechanism: embolism Precerebral and cerebral artery: unspecified cerebral artery Qualified Code(s): I63.40 - Cerebral infarction due to embolism of unspecified cerebral artery Atrial fibrillation Qualifiers: Atrial fibrillation type: chronic Qualified Code(s): I48.2 - Chronic atrial fibrillation Condition: Fair Disposition: ADMITTED INPATIENT I personally performed the services described in the documentation, reviewed and edited the documentation which was dictated to the scribe in my presence, and it accurately records my words and actions.
[2018-08-15] MEDS ORDERED: IPRATROPIUM/ALBUTEROL 0.5-2.5 MG/3 ML AMPUL NEB PRN (14:27)
[2018-08-15] MEDS ORDERED: ACETAMINOPHEN 325 MG TABLET PO PRN (14:27)
[2018-08-15] MEDS ORDERED: ONDANSETRON HCL INJ/PF 4 MG/2 ML SDV IV PRN (14:27)
--- NOTE | 2018-08-15 14:27 | PDOC H&P ---
History of Present Illness History of Present Illness: BARRERA FORD is a 58 year old female patient with past medical history of diabetes mellitus, hypertension, hyperlipidemia atrial fibrillation and chronic anticoagulation with Eliquis, COPD, hypertension, chronic pain syndrome and tobacco dependence presents with chief complaint of blurring of vision, facial droop, slurred speech and gait abnormality. Patient reports that she woke up yesterday with the above-mentioned complaints. She reports when she walks she staggers and walks sideways. Patient denies any chills, fever, chest pain, palpitation, diaphoresis, nausea, vomiting, abdominal pain or any change in her bowel habits. No urinary complaints. She denied dizziness headache or any seizure activity. Her CT scan of the negative for acute intracranial process. Past Medical History Cardiac Medical History: Reports: Atrial Fibrillation, Hyperlipidema - States in past, but not sure now, Hypertension, Heart Murmur Denies: Congestive Heart Failure, Coronary Artery Disease, Myocardial Infarction, Peripheral Vascular Disease, Pulmonary Embolism Pulmonary Medical History: Reports: Chronic Obstructive Pulmonary Disease (COPD), Pneumonia, Sleep Apnea Denies: Asthma, Bronchitis, Respiratory Failure, Tuberculosis Endocrine Medical History: Reports: Diabetes Mellitus Type 2 GI Medical History: Reports: Gastroesophageal Reflux Disease Denies: Crohn's Disease, Hiatal Hernia Musculoskeltal Medical History: Reports: Arthritis Psychiatric Medical History: Reports: Depression Denies: Bipolar Disorder, Post Traumatic Stress Disorder Past Surgical History Past Surgical History: Reports: Section Denies: Amputation, Appendectomy, Cholecystectomy, Colostomy, Coronary Artery Bypass Graft, Gastric Bypass Surgery, Herniorrhaphy, Hysterectomy, Mastectomy, Pacemaker, Tonsillectomy, Tubal Ligation Social History Smoking Status: Current Every Day Smoker Frequency of Alcohol Use: Rare Hx Recreational Drug Use: No Hx Prescription Drug Abuse: No - Advance Directive Resuscitation Status: Full Code Family History Family History: Reviewed & Not Pertinent Parental Family History Reviewed: Yes Children Family History Reviewed: Yes Sibling(s) Family History Reviewed.: Yes Medication/Allergy Home Medications: Apixaban [Eliquis] 1 tab PO BID 10/04/16 Baclofen 1 tab PO BID 10/04/16 Budesonide/Formoterol Fumarate [Symbicort 160-4.5 Mcg Inhaler] 1 puff IH BID 10/04/16 Ciprofloxacin HCl [Cipro 500 mg Tablet] 500 mg PO BID #20 tablet 10/04/16 Colchicine 1 tab PO PRN PRN 10/04/16 Diltiazem HCl 60 mg PO TID 10/04/16 Omeprazole 1 tab PO BID 10/04/16 Oxycodone HCl/Acetaminophen [Oxycodon-Acetaminophen 7.5-325] 1 tab PO TID 10/04/16 Oxycodone HCl/Acetaminophen [Xartemis Xr 7.5-325 mg Tablet] 2 ng PO Q12H 10/04/16 Simvastatin 1 tab PO QHS 10/04/16 Allergies/Adverse Reactions: aspirin [Aspirin] Allergy (Intermediate, Verified 08/15/18 10:17) rash, vomiting Review of Systems Constitutional: ABSENT: chills, fever(s), headache(s), weight gain, weight loss Eyes: ABSENT: visual disturbances Ears: ABSENT: hearing changes Cardiovascular: ABSENT: chest pain, dyspnea on exertion, edema, orthropnea, palpitations Respiratory: ABSENT: cough, hemoptysis Gastrointestinal: ABSENT: abdominal pain, constipation, diarrhea, hematemesis, hematochezia, nausea, vomiting Genitourinary: ABSENT: dysuria, hematuria Musculoskeletal: ABSENT: joint swelling Integumentary: ABSENT: rash, wounds Neurological: ABSENT: abnormal gait, abnormal speech, confusion, dizziness, focal weakness, syncope Psychiatric: ABSENT: anxiety, depression, homidical ideation, suicidal ideation Endocrine: ABSENT: cold intolerance, heat intolerance, polydipsia, polyuria Hematologic/Lymphatic: ABSENT: easy bleeding, easy bruising Physical Exam Vital Signs: Temp Pulse Resp BP Pulse Ox 110 H 18 175/101 H 97 08/15/18 09:58 08/15/18 09:58 08/15/18 09:58 08/15/18 09:58 Intake & Output 08/14/18 08/15/18 08/16/18 06:59 06:59 06:59 Weight 121 kg General appearance: PRESENT: no acute distress, cooperative, obese Head exam: PRESENT: atraumatic, normocephalic Eye exam: PRESENT: conjunctiva pink Mouth exam: PRESENT: moist Neck exam: ABSENT: carotid bruit, JVD, lymphadenopathy, thyromegaly Respiratory exam: PRESENT: clear to auscultation felicity. ABSENT: rales, rhonchi, wheezes Cardiovascular exam: PRESENT: irregular rhythm GI/Abdominal exam: PRESENT: normal bowel sounds, soft. ABSENT: distended, guarding, mass, organolmegaly, rebound, tenderness Neurological exam: PRESENT: alert, awake, oriented to time, oriented to situation Results Laboratory Results: 08/15/18 10:15 08/15/18 10:15 08/15/18 08/15/18 08/15/18 10:15 10:15 10:15 WBC 11.2 H RBC 5.13 Hgb 15.7 H Hct 47.6 H MCV 93 MCH 30.6 MCHC 33.0 RDW 15.3 H Plt Count 249 Seg Neutrophils % 65.6 Lymphocytes % 26.0 Monocytes % 6.5 Eosinophils % 1.3 Basophils % 0.6 Absolute Neutrophils 7.3 Absolute Lymphocytes 2.9 Absolute Monocytes 0.7 Absolute Eosinophils 0.1 Absolute Basophils 0.1 VBG pH VBG pCO2 VBG HCO3 VBG Base Excess Sodium 139.0 Potassium 3.7 Chloride 100 Carbon Dioxide 28 Anion Gap 11 BUN 19 Creatinine 0.55 Est GFR ( Amer) > 60 Est GFR (Non-Af Amer) > 60 Glucose 123 H Lactic Acid 2.3 H Calcium 10.0 Total Bilirubin 0.5 AST 20 ALT 13 Alkaline Phosphatase 133 H Total Protein 7.8 Albumin 4.8 08/15/18 10:15 WBC RBC Hgb Hct MCV MCH MCHC RDW Plt Count Seg Neutrophils % Lymphocytes % Monocytes % Eosinophils % Basophils % Absolute Neutrophils Absolute Lymphocytes Absolute Monocytes Absolute Eosinophils Absolute Basophils VBG pH 7.40 VBG pCO2 49.2 VBG HCO3 29.9 VBG Base Excess 3.9 Sodium Potassium Chloride Carbon Dioxide Anion Gap BUN Creatinine Est GFR ( Amer) Est GFR (Non-Af Amer) Glucose Lactic Acid Calcium Total Bilirubin AST ALT Alkaline Phosphatase Total Protein Albumin 08/15/18 08/15/18 08/15/18 10:15 10:15 10:15 Creatine Kinase 27 L CK-MB (CK-2) 0.49 Troponin I < 0.012 NT-Pro-B Natriuret Pep 526 Impressions: Chest X-Ray 08/15/18 09:58 IMPRESSION: STABLE CARDIOMEGALY. NO ACUTE FINDINGS. Head CT 08/15/18 09:58 IMPRESSION: No CT evidence of acute stroke or hemorrhage. EVIDENCE OF ACUTE STROKE: NO. Findings reported to Dr. Eastman, 10:07 AM, 08/15/2018 Head CTA 08/15/18 10:32 IMPRESSION: FOCAL CALCIFIED PLAQUE IN THE RIGHT AND LEFT CAVERNOUS INTERNAL CAROTID ARTERIES. SUSPECT FOCAL STENOSIS IN THE CAVERNOUS LEFT INTERNAL CAROTID ARTERY DUE TO CALCIFIED PLAQUE. NO OCCLUDED VESSELS. NO CTA EVIDENCE OF STENOSIS OR ANEURYSM OF THE [place] OF [place]. Neck CTA 08/15/18 10:32 IMPRESSION: FOCAL CALCIFIED PLAQUE IN THE PROXIMAL RIGHT AND LEFT INTERNAL CAROTID ARTERIES WITH NO SIGNIFICANT STENOSIS. OTHERWISE UNREMARKABLE CTA OF THE EXTRA-CRANIAL CAROTID AND VERTEBRAL ARTERIES. Assessment & Plan - Diagnosis (1) TIA/stroke Is this a current diagnosis for this admission?: Yes Plan: Clinically patient has ischemic stroke with some deficit. She is not a candidate for TPA administration. MRI of the brain. Carotid Doppler (2) COPD (chronic obstructive pulmonary disease) Qualifiers: Emphysema type: unspecified Is this a current diagnosis for this admission?: Yes Plan: As needed bronchodilator. (3) Chronic atrial fibrillation Is this a current diagnosis for this admission?: Yes Plan: I will continue all her home medication and will start her Eliquis as soon as possible. (4) Morbid obesity with BMI of 40.0-44.9, adult Is this a current diagnosis for this admission?: Yes Plan: Lifestyle modification advised. (5) Hypertension Qualifiers: Hypertension type: essential hypertension Qualified Code(s): I10 - Essential (primary) hypertension Is this a current diagnosis for this admission?: Yes Plan: Continue home medication (6) Type 2 diabetes mellitus Is this a current diagnosis for this admission?: Yes Plan: Continue home medication and sliding scale. (7) Hyperlipidemia Qualifiers: Hyperlipidemia type: unspecified Qualified Code(s): E78.5 - Hyperlipidemia, unspecified Is this a current diagnosis for this admission?: Yes Plan: Continue home medication (8) Current everyday smoker Is this a current diagnosis for this admission?: Yes Plan: Patient counseled and encouraged to quit smoking.
[2018-08-15] MEDS ORDERED: DEXTROSE 40% GEL 15 GM TUBE PO PRN ×2 (14:33)
[2018-08-15] MEDS ORDERED: DEXTROSE 50%-WATER 25 GM/50 ML DISP.SYRIN IV PRN ×2 (14:33)
[2018-08-15] MEDS ORDERED: GLUCAGON,HUMAN RECOMB 1 MG INJ IM PRN (14:33)
[2018-08-15] MEDS ORDERED: LORAZEPAM INJ 2 MG/1 ML VIAL IV ONE (15:55)
--- NOTE | 2018-08-15 17:13 | RADIOLOGY REPORT (SQ) ---
EXAM DESCRIPTION: MRI HEAD WITHOUT COMPLETED DATE/TIME: 08/15/2018 5:00 pm REASON FOR STUDY: TIA/stroke COMPARISON: CT 08/15/2018 MR 04/12/2011 TECHNIQUE: Multiplanar imaging includes non-contrasted T1, T2, FLAIR, and diffusion with ADC map seq uences. Images stored on PACS. LIMITATIONS: None. FINDINGS: ANATOMY: No anomalies. Normal vascular flow voids. Pituitary fossa normal. CSF SPACES: Normal in size and contour. No hemorrhage. CEREBRUM: Sulci and gyri normal in size and contour. Normal white matter signal on FLAIR imaging. No evidence of hemorrhage, mass, or extraaxial fluid collection. POSTERIOR FOSSA: No signal alteration. No hemorrhage. No edema, masses or mass effect. Internal marissa tory canals, cerebello-pontine angles, mastoids normal. DIFFUSION IMAGING: Negative for acute or sub-acute infarction. ORBITS: No masses. Globes normal. PARANASAL SINUSES: No fluid levels. Mucosa normal. OTHER: No other significant finding. IMPRESSION: NORMAL MRI OF THE BRAIN WITHOUT INTRAVENOUS GADOLINIUM CONTRAST. EVIDENCE OF ACUTE STROKE: NO. TECHNICAL DOCUMENTATION: JOB ID: [id number] [employer]- All Rights Reserved Reading location - IP/workstation name: [email or web address]
[2018-08-15] MEDS: APIXABAN 5 MG TABLET PO SCH (19:08)
[2018-08-15] MEDS: INSULIN LISPRO 100 UNIT/ML 3 ML VIAL SUBCUT SCH ×2 (19:10→22:23)
[2018-08-15 19:18] LABS: APPEARANCE,URINE CLEAR; BILIRUBIN,URINE NEGATIVE (NEGATIVE); COLOR,URINE YELLOW; GLUCOSE, URINE NEGATIVE (NEGATIVE); KETONES,URINE NEGATIVE (NEGATIVE); LEUKOCYTE ESTERASE,URINE NEGATIVE (NEGATIVE); NITRITE,URINE NEGATIVE (NEGATIVE); PROTEIN,URINE NEGATIVE (NEGATIVE); UROBILINOGEN,URINE NEGATIVE mg/dL (<2.0)
[2018-08-15 19:19] LABS: URINE SPECIFIC GRAVITY > 1.060
[2018-08-15 19:33] LABS: URINE AMPHETAMINES SCREEN NEGATIVE; URINE BARBITURATES SCREEN NEGATIVE; URINE BENZODIAZEPINES SCREEN NEGATIVE; URINE COCAINE SCREEN NEGATIVE; URINE MARIJUANA (THC) SCREEN NEGATIVE; URINE METHADONE SCREEN NEGATIVE; URINE PHENCYCLIDINE SCREEN NEGATIVE
[2018-08-15] MEDS ORDERED: (PENDING PHARMACY ID) (Fluticasone/Salmeterol 1 INH) IH SCH (22:00)
--- NOTE | 2018-08-15 22:05 | RADIOLOGY REPORT (SQ) ---
Bilateral carotid Doppler arterial ultrasound HISTORY: TIA, stroke, evaluate for carotid stenosis. Bowers scale, color flow, and spectral Doppler was performed of the carotid arteries bilaterally. Right carotid plaque characterization: Mild irregular plaque. 1. CCA peak systolic velocity: 59 cm/sec 2. CCA end-diastolic velocity: 13 cm/sec 3. ICA peak systolic velocity: 45 cm/sec 4. ICA end-diastolic velocity: 17 cm/sec 5. Systolic ratio: 1.0 6. Vertebral artery flow: Antegrade and appears normal. Left carotid plaque characterization: Mild irregular plaque. 1. CCA peak systolic velocity: 71 cm/sec 2. CCA end-diastolic velocity: 17 cm/sec 3. ICA peak systolic velocity: 32 cm/sec 4. ICA end-diastolic velocity: 10 cm/sec 5. Systolic ratio: 0.9 6. Vertebral artery flow: Antegrade and appears normal. IMPRESSION: No significant internal carotid artery stenosis.
[2018-08-15] MEDS ORDERED: NICOTINE 7 MG/24 HR PATCH.TD24 TD ONE (22:15)
[2018-08-15] MEDS: FAMOTIDINE 20 MG TABLET PO SCH (22:23)
[2018-08-15] MEDS ORDERED: FLUTICASONE/VILANTEROL 200-25 MCG/DOSE IH ONE (22:30)
[2018-08-15] MEDS ORDERED: DILTIAZEM HCL 60 MG TABLET PO ONE (22:30)
[2018-08-16 05:19] LABS: HEMOGLOBIN 15.4 g/dL (12.0-15.5); MEAN CORPUSCULAR HEMOGLOBIN 31.1 pg (27.0-33.4); MEAN CORPUSCULAR HGB CONC 33.4 g/dL (32.0-36.0); MEAN CORPUSCULAR VOLUME 93 fl (80-97); PLATELET COUNT 252 10^3/uL (150-450); RED BLOOD COUNT 4.95 10^6/uL (3.72-5.28); RED CELL DISTRIBUTION WIDTH 15.2 % (11.5-14.0); WHITE BLOOD COUNT 11.1 10^3/uL (4.0-10.5)
[2018-08-16 05:47] LABS: ANION GAP 11 (5-19); BLOOD UREA NITROGEN 18 mg/dL (7-20); CALCIUM 9.8 mg/dL (8.4-10.2); CARBON DIOXIDE 29 mmol/L (22-30); CHLORIDE 102 mmol/L (98-107); GLUCOSE 122 mg/dL (75-110); POTASSIUM 3.6 mmol/L (3.6-5.0); SODIUM 141.5 mmol/L (137-145); TRIGLYCERIDES 122 mg/dL (<150)
[2018-08-16 05:58] LABS: DIRECT LDL 131 mg/dL (<100)
[2018-08-16 08:23] VITALS: BP 138/77
[2018-08-16] MEDS: INSULIN LISPRO 100 UNIT/ML 3 ML VIAL SUBCUT SCH (09:34)
[2018-08-16] MEDS: FAMOTIDINE 20 MG TABLET PO SCH (09:54)
[2018-08-16] MEDS: APIXABAN 5 MG TABLET PO SCH (09:54)
[2018-08-16] MEDS ORDERED: NICOTINE 7 MG/24 HR PATCH.TD24 TD SCH (10:00)
[2018-08-16] MEDS ORDERED: FLUTICASONE/VILANTEROL 200-25 MCG/DOSE IH SCH (10:00)
--- NOTE | 2018-08-16 11:13 | PDOC TRANSFER SUMMARY ---
General - Admit/Disc Date/PCP Admission Date/Primary Care Provider: 08/15/18 14:25 Discharge Date: 08/16/18 - Discharge Diagnosis (1) TIA/stroke Is this a current diagnosis for this admission?: Yes (2) COPD (chronic obstructive pulmonary disease) Is this a current diagnosis for this admission?: Yes (3) Chronic atrial fibrillation Is this a current diagnosis for this admission?: Yes (4) Morbid obesity with BMI of 40.0-44.9, adult Is this a current diagnosis for this admission?: Yes (5) Hypertension Is this a current diagnosis for this admission?: Yes (6) Type 2 diabetes mellitus Is this a current diagnosis for this admission?: Yes (7) Hyperlipidemia Is this a current diagnosis for this admission?: Yes (8) Current everyday smoker Is this a current diagnosis for this admission?: Yes - Additional Information Resuscitation Status: Full Code Home Medications: Albuterol Sulfate [Proair Hfa Inhalation Aerosol 8.5 gm Mdi] 1 puff IH Q6HP PRN 08/15/18 Apixaban [Eliquis 5 mg Tablet] 5 mg PO Q12 08/15/18 Brexpiprazole [Rexulti] 3 mg PO DAILY 08/15/18 Cyclobenzaprine HCl [Flexeril 10 mg Tablet] 10 mg PO TIDP PRN 08/15/18 Diltiazem HCl [Cardizem 60 mg Tablet] 60 mg PO TID 08/15/18 Ergocalciferol (Vitamin D2) [Drisdol 50,000 Unit (1.25MG) Capsule] 50,000 unit PO TH@1000 08/15/18 Fluticasone/Salmeterol [Advair 500-50 Diskus 14 Dose/Diskus] 1 inh IH Q12 08/15/18 Furosemide [Lasix 20 mg Tablet] 20 mg PO DAILY 08/15/18 Naproxen [Naprosyn] 500 mg PO Q12 08/15/18 Omeprazole 20 mg PO BID 08/15/18 Oxcarbazepine [Trileptal] 600 mg PO BID 08/15/18 Oxycodone HCl/Acetaminophen [Percocet 10-325 Mg Tablet] 1 each PO Q6HP PRN 08/15/18 Vortioxetine Hydrobromide [Brintellix] 40 mg PO DAILY 08/15/18 Zolpidem Tartrate [Ambien] 10 mg PO QHS 08/15/18 History of Present Illness Admission Date/PCP: 08/15/18 14:25 History of Present Illness: BARRERA FORD is a 58 year old female patient with past medical history of diabetes mellitus, hypertension, hyperlipidemia atrial fibrillation and chronic anticoagulation with Eliquis, COPD, hypertension, chronic pain syndrome and tobacco dependence presents with chief complaint of blurring of vision, facial droop, slurred speech and gait abnormality. Patient reports that she woke up yesterday with the above-mentioned complaints. She reports when she walks she staggers and walks sideways. Patient denies any chills, fever, chest pain, palpitation, diaphoresis, nausea, vomiting, abdominal pain or any change in her bowel habits. No urinary complaints. She denied dizziness headache or any seizure activity. Her CT scan of the negative for acute intracranial process. Hospital Course Hospital Course: BARRERA FORD is a 58 year old female patient with past medical history of diabetes mellitus, hypertension, hyperlipidemia atrial fibrillation and chronic anticoagulation with Eliquis, COPD, hypertension, chronic pain syndrome and tobacco dependence presents with chief complaint of blurring of vision, facial droop, slurred speech and gait abnormality. Her CT scan of the head and MRI of the brain are reported as no acute stroke. Her CT of the neck reported as focal calcified plaque in the proximal right and left internal carotid arteries with no significant stenosis. Most probably patient has TIA. I seen patient this morning to sit up in bed she is awake alert oriented and she is not in pain or any form of acute cardiorespiratory distress. Her speech is normal and she does not have any deficit. I strongly advised her and encouraged her to quit smoking and she voiced agreement. Her vital signs and blood works are stable and patient is good to go home. Patient advised to visit ER if she does not feel well. Physical Exam Vital Signs: Temp Pulse Resp BP Pulse Ox 97.7 F 100 20 138/77 H 96 08/16/18 07:30 08/16/18 08:00 08/16/18 08:00 08/16/18 08:00 08/16/18 08:00 Intake & Output 08/15/18 08/16/18 08/17/18 06:59 06:59 06:59 Intake Total 200 Output Total 200 Balance 0 Weight 121 kg General appearance: PRESENT: no acute distress, well-developed, well-nourished Head exam: PRESENT: atraumatic, normocephalic Eye exam: PRESENT: conjunctiva pink, EOMI, PERRLA. ABSENT: scleral icterus Ear exam: PRESENT: normal external ear exam Mouth exam: PRESENT: moist, tongue midline Neck exam: ABSENT: carotid bruit, JVD, lymphadenopathy, thyromegaly Respiratory exam: PRESENT: clear to auscultation felicity. ABSENT: rales, rhonchi, wheezes Cardiovascular exam: PRESENT: RRR. ABSENT: diastolic murmur, rubs, systolic murmur Pulses: PRESENT: normal dorsalis pedis pul Vascular exam: PRESENT: normal capillary refill GI/Abdominal exam: PRESENT: normal bowel sounds, soft. ABSENT: distended, guarding, mass, organolmegaly, rebound, tenderness Rectal exam: PRESENT: deferred Extremities exam: PRESENT: full ROM. ABSENT: calf tenderness, clubbing, pedal edema Neurological exam: PRESENT: alert, awake, oriented to person, oriented to place, oriented to time, oriented to situation, CN II-XII grossly intact. ABSENT: motor sensory deficit Psychiatric exam: PRESENT: appropriate affect, normal mood. ABSENT: homicidal ideation, suicidal ideation Skin exam: PRESENT: dry, intact, warm. ABSENT: cyanosis, rash Results Laboratory Results: 08/16/18 04:37 08/16/18 04:37 08/15/18 08/15/18 08/15/18 10:15 10:15 15:42 WBC RBC Hgb Hct MCV MCH MCHC RDW Plt Count VBG pH 7.40 VBG pCO2 49.2 VBG HCO3 29.9 VBG Base Excess 3.9 Sodium Potassium Chloride Carbon Dioxide Anion Gap BUN Creatinine Est GFR ( Amer) Est GFR (Non-Af Amer) Glucose Lactic Acid 2.3 H 2.0 Calcium Triglycerides Cholesterol LDL Cholesterol Direct VLDL Cholesterol HDL Cholesterol Urine Color Urine Appearance Urine pH Ur Specific [place] Urine Protein Urine Glucose (UA) Urine Ketones Urine Blood Urine Nitrite Ur Leukocyte Esterase Urine WBC (Auto) Urine RBC (Auto) 08/15/18 08/16/18 08/16/18 18:45 04:37 04:37 WBC 11.1 H RBC 4.95 Hgb 15.4 Hct 46.0 MCV 93 MCH 31.1 MCHC 33.4 RDW 15.2 H Plt Count 252 VBG pH VBG pCO2 VBG HCO3 VBG Base Excess Sodium 141.5 Potassium 3.6 Chloride 102 Carbon Dioxide 29 Anion Gap 11 BUN 18 Creatinine 0.79 Est GFR ( Amer) > 60 Est GFR (Non-Af Amer) > 60 Glucose 122 H Lactic Acid Calcium 9.8 Triglycerides 122 Cholesterol 202.50 H LDL Cholesterol Direct 131 H VLDL Cholesterol 24.0 HDL Cholesterol 66 Urine Color YELLOW Urine Appearance CLEAR Urine pH 5.0 Ur Specific [place] > 1.060 Urine Protein NEGATIVE Urine Glucose (UA) NEGATIVE Urine Ketones NEGATIVE Urine Blood NEGATIVE Urine Nitrite NEGATIVE Ur Leukocyte Esterase NEGATIVE Urine WBC (Auto) 0 Urine RBC (Auto) 1 08/15/18 08/15/18 08/15/18 10:15 10:15 10:15 Creatine Kinase 27 L CK-MB (CK-2) 0.49 Troponin I < 0.012 NT-Pro-B Natriuret Pep 526 Impressions: Carotid Doppler Study 08/15/18 00:00 IMPRESSION: No significant internal carotid artery stenosis. Head MRI 08/15/18 00:00 IMPRESSION: NORMAL MRI OF THE BRAIN WITHOUT INTRAVENOUS GADOLINIUM CONTRAST. EVIDENCE OF ACUTE STROKE: NO. Chest X-Ray 08/15/18 09:58 IMPRESSION: STABLE CARDIOMEGALY. NO ACUTE FINDINGS. Head CT 08/15/18 09:58 IMPRESSION: No CT evidence of acute stroke or hemorrhage. EVIDENCE OF ACUTE STROKE: NO. Findings reported to Dr. Eastman, 10:07 AM, 08/15/2018 Head CTA 08/15/18 10:32 IMPRESSION: FOCAL CALCIFIED PLAQUE IN THE RIGHT AND LEFT CAVERNOUS INTERNAL CAROTID ARTERIES. SUSPECT FOCAL STENOSIS IN THE CAVERNOUS LEFT INTERNAL CAROTID ARTERY DUE TO CALCIFIED PLAQUE. NO OCCLUDED VESSELS. NO CTA EVIDENCE OF STENOSIS OR ANEURYSM OF THE [place] OF [place]. Neck CTA 08/15/18 10:32 IMPRESSION: FOCAL CALCIFIED PLAQUE IN THE PROXIMAL RIGHT AND LEFT INTERNAL CAROTID ARTERIES WITH NO SIGNIFICANT STENOSIS. OTHERWISE UNREMARKABLE CTA OF THE EXTRA-CRANIAL CAROTID AND VERTEBRAL ARTERIES. Qualifiers - * PATIENT BEING DISCHARGED WITH ANY OF THE FOLLOWING DIAGNOSIS: No
[2018-08-16] MEDS ORDERED: DILTIAZEM HCL 60 MG TABLET PO SCH ×2 (14:00→22:00)
== END 2018-08-16 13:10 | disposition home or self-care (01) ==
LOC: ER 09:56 → INTOOBSV 14:25 → EH 14:25 → 3W 17:40
PROVIDERS: ADMIT Internal Medicine; ATTEND Internal Medicine
DX: G45.9 Transient cerebral ischemic attack, unspecified (principal); H53.8 Other visual disturbances; H53.2 Diplopia; R26.0 Ataxic gait; R29.810 Facial weakness; J43.9 Emphysema, unspecified; I48.2 Chronic atrial fibrillation; E66.01 Morbid (severe) obesity due to excess calories; I10 Essential (primary) hypertension; Z68.41 Body mass index [BMI] 40.0-44.9, adult; E11.9 Type 2 diabetes mellitus without complications; E78.5 Hyperlipidemia, unspecified; G89.4 Chronic pain syndrome; R53.1 Weakness; F17.210 Nicotine dependence, cigarettes, uncomplicated; D72.829 Elevated white blood cell count, unspecified; I49.3 Ventricular premature depolarization; I45.10 Unspecified right bundle-branch block; Z79.02 Long term (current) use of antithrombotics/antiplatelets; Z79.899 Other long term (current) drug therapy; Z23 Encounter for immunization
CPT/HCPCS: 93005; 99285; 96374; 36415 ×2; 87040; 87086; 82553; 82962 ×2; 82550; 85025; 85027; 85610; 85730; 80048; 80053; 81001; 84484; 80307; 83036; 82803; 83605; 80061; 83880; 93880; 70551; 71045; 70450; 70496; 70498; 90686; 93010; J3490 ×10; J1815; J2060; J2405; G0378

== ENCOUNTER → 2018-11-07 | Outpatient (CLI) | payer MEDICAID ==
--- NOTE | 2018-11-07 09:16 | WOMENS IMAGING REPORT ---
EXAM DESCRIPTION: BILAT SCREENING MAMMO W/CAD COMPLETED DATE/TIME: 11/07/2018 9:06 am REASON FOR STUDY: Z12.31 ENCOUNTER FOR SCREENING MAMMOGRAM FOR MALIGNANT NEOPLASM OF BREAST Z12.31 ENCNTR SCREEN MAMMOGRAM FOR MALIGNANT NEOPLASM OF MANUEL COMPARISON: 07/19/2015 and 01/30/2011. EXAM PARAMETERS: Standard craniocaudal and mediolateral oblique views of each breast recorded using digital acquisition. Read with the assistance of CAD. .[facility] - R2 Spooler Version 9.2 LIMITATIONS: None. FINDINGS: No suspicious masses, suspicious calcifications or architectural distortion. No areas of s uspicion. IMPRESSION: ASSESSMENT: Negative MAMMOGRAM. BIRADS 1 BREAST DENSITY: b. There are scattered areas of fibroglandular density. BIRAD: 1 NEGATIVE RECOMMENDATION: ROUTINE SCREENING COMMENT: The patient has been notified of the results by letter per MQSA requirements. Additional no tification policies are in place for contacting patient with suspicious or incomplete findings. Quality ID #225: The [employer] recommends an annual screening mammogram for women aged 40 years or over. This facility utilizes a reminder system to ensure that all patients receive reminder letters, and/or direct phone calls for appointments. This includes reminders for routine scr eening mammograms, diagnostic mammograms, or other Breast Imaging Interventions when appropriate. Th is patient will be placed in the appropriate reminder system. TECHNICAL DOCUMENTATION: FINDING NUMBER: (1) ASSESSMENT: (1) JOB ID: [id number] [email or web address]- All Rights Reserved Reading location - IP/workstation name: [email or web address]
== END ==
LOC: WI 08:52
PROVIDERS: ATTEND Physician Assistant
DX: Z12.31 Encounter for screening mammogram for malignant neoplasm of breast (principal)
CPT/HCPCS: 77067

== ENCOUNTER → 2019-01-14 | Outpatient (CLI) | payer MEDICAID ==
--- NOTE | 2019-01-14 08:41 | WOMENS IMAGING REPORT ---
EXAM DESCRIPTION: U/S ABDOMEN LIMITED COMPLETED DATE/TIME: 01/14/2019 8:23 am REASON FOR STUDY: ABDOMINAL PAIN,EPIGASTRIC;R10.13 R10.13 EPIGASTRIC PAIN COMPARISON: None. TECHNIQUE: Dynamic and static grayscale images acquired of the abdomen and recorded on PACS. Additio nal selected color Doppler and spectral images recorded. LIMITATIONS: Limited evaluation due to acoustic window. FINDINGS: PANCREAS: Unremarkable visualized portions. LIVER: No focal lesions. Increased echogenicity. Enlarged measuring 20 cm. LIVER VASCULATURE: Normal directional flow of the main portal vein and hepatic veins. GALLBLADDER: No stones. Normal wall thickness. No pericholecystic fluid. ULTRASOUND-DETECTED CAIN'S SIGN: Negative. INTRAHEPATIC DUCTS AND COMMON DUCT: CBD and intrahepatic ducts normal caliber. No filling defects. INFERIOR VENA CAVA: Not visualized. AORTA: Not visualized. RIGHT KIDNEY: Normal size measuring 11.6 cm. Normal echogenicity. No solid or suspicious masses. No hydronephrosis. No calcifications. PERITONEAL AND RIGHT PLEURAL SPACE: No ascites or effusions. OTHER: No other significant findings. IMPRESSION: Hepatomegaly and hepatic steatosis. Gallbladder sludge without secondary evidence of acute cholecystitis. TECHNICAL DOCUMENTATION: JOB ID: [id number] [employer]- All Rights Reserved Reading location - IP/workstation name: [email or web address]
== END ==
LOC: WI 07:43
PROVIDERS: ATTEND Internal Medicine Gastroenterology
DX: K82.8 Other specified diseases of gallbladder (principal); K76.0 Fatty (change of) liver, not elsewhere classified; R16.0 Hepatomegaly, not elsewhere classified; R10.13 Epigastric pain
CPT/HCPCS: 76705

== ENCOUNTER → 2019-01-16 | Outpatient (CLI) | payer MEDICAID ==
--- NOTE | 2019-01-16 16:48 | XCELERA REPORT ---
[address] [address] Lower Extremity Arterial Evaluation Name: BARRERA FORD Age: 58 yrs Gender: Female : 1960 Patient Status: Preadmit Patient Location: Study Date: 01/16/2019 11:22 AM Procedure: A color flow and duplex scan of the lower extremity arteries was performed bilaterally with velocity and waveform anaylsis. Ankle brachial indicies performed. Reason For Study: DISTURBANCES OF SKIN SENSATION Ordering Physician: AMY AKERS Performed By: Pedro Brush Measurements and Calculations Right Left FOOD SERVICE CLERK PSV 99.9 128.1 cm/sec Prox PFA PSV -62.4 93.7 cm/sec Prox SFA PSV 117.1 127.3 cm/sec Mid SFA PSV -99.0 -93.7 cm/sec Dist SFA PSV -88.6 -95.5 cm/sec Prox Pop A PSV 82.3 60.5 cm/sec Dist [place] PSV 63.6 57.2 cm/sec Dist INSPECTOR FLOOR PSV 29.0 35.6 cm/sec Donald Pedis PSV 76.1 69.5 cm/sec Right Side Arterial Evaluation Normal velocity and triphasic waveforms noted from the Common Femoral artery to the infrageniculate vessels . Ankle Brachial index 1.03. Left Side Arterial Evaluation Normal velocity and triphasic waveforms noted from the Common Femoral artery to the infrageniculate vessels . Ankle Brachial index 0.98. Interpretation Summary No hemodynamically significant lesions in the bilateral lower extremities, on duplex imaging, at rest. REYNA's are in normal range, indicating no significant arterial compromise. This is concordant with Duplex findings. : AMY AKERS > Jerry Leonardo
== END ==
LOC: SP 10:30
PROVIDERS: ATTEND Nurse Practitioner Primary Care
DX: R20.8 Other disturbances of skin sensation (principal)
CPT/HCPCS: 93925

== ENCOUNTER 2019-02-05 12:19 | Emergency (ER) | payer MEDICAID ==
--- NOTE | 2019-02-05 12:52 | ER Document Report ---
HPI - HPI Time Seen by Provider: 02/05/19 12:31 Pain Level: 5 Context: Patient is a 58-year-old female with a history of hypertension, A. fib on Eliquis who presents to the emergency department with a chief complaint of right rib pain. Patient states around 5 AM she was ambulating through her house in the dark attempting to use the restroom when she tripped over a bag. She reports that they are currently in the process of moving and have a lot of boxes laying around. Patient states she fell as she tripped over a bag and landed on a baseball bat to the right ribs. Patient denies head injury or loss of consciousness. Patient states she is having significant right lateral and posterior rib pain that is worse with movement, deep breath or palpation. Patient states she also has an abrasion to the right knee but has been able to ambulate after the injury. Patient reports slight swelling to the right knee. - CONSTITUTIONAL Constitutional: DENIES: Fever, Chills - EENT EENT: DENIES: Sore Throat, Ear Pain, Eye problems - NEURO Neurology: DENIES: Headache, Weakness, Vision blurred, Dizzinesss / Vertigo - CARDIOVASCULAR Cardiovascular: DENIES: Chest pain - RESPIRATORY Respiratory: DENIES: Trouble Breathing, Coughing - GASTROINTESTINAL Gastrointestinal: DENIES: Abdominal Pain, Black / Bloody Stools - URINARY Urinary: DENIES: Dysuria, Urgency, Frequency - REPRODUCTIVE Reproductive: DENIES: : - MUSCULOSKELETAL Musculoskeletal: REPORTS: Extremity pain - right knee Past Medical History - General Information source: Patient - Social History Smoking Status: Current Every Day Smoker Chew tobacco use (# tins/day): No Frequency of alcohol use: None Drug Abuse: None Lives with: Spouse/Significant other Family History: Reviewed & Not Pertinent Patient has suicidal ideation: No Patient has homicidal ideation: No - Past Medical History Cardiac Medical History: Reports: Hx Atrial Fibrillation, Hx Hypercholesterolemia - States in past, but not sure now, Hx Hypertension, Hx Heart Murmur Denies: Hx Congestive Heart Failure, Hx Coronary Artery Disease, Hx Heart Attack, Hx Peripheral Vascular Disease, Hx Pulmonary Embolism Pulmonary Medical History: Reports: Hx COPD, Hx Pneumonia, Hx Sleep Apnea Denies: Hx Asthma, Hx Bronchitis, Hx Respiratory Failure, Hx Tuberculosis EENT Medical History: Reports: None Neurological Medical History: Reports: None Endocrine Medical History: Reports: Hx Diabetes Mellitus Type 2 Renal/ Medical History: Reports: Hx Ovarian Cysts. Denies: Hx Peritoneal Dialysis Malignancy Medical History: Reports: None GI Medical History: Reports: Hx Gastroesophageal Reflux Disease, Hx Irritable Bowel - DIARRHEA TYPE, Hx Ulcer. Denies: Hx Crohn's Disease, Hx Hiatal Hernia, Hx Pancreatitis Musculoskeletal Medical History: Reports Hx Arthritis, Denies Hx Muscular Dystrophy Skin Medical History: Reports None Psychiatric Medical History: Reports: Hx Anxiety, Hx Depression Denies: Hx Bipolar Disorder, Hx Post Traumatic Stress Disorder, Hx Schizophrenia Traumatic Medical History: Reports: Hx Fractures - Clavicle, nose, cheek bone Infectious Medical History: Reports: None Past Surgical History: Reports: Hx Section. Denies: Hx Appendectomy, Hx Bowel Surgery, Hx Cholecystectomy, Hx Colostomy, Hx Coronary Artery Bypass Graft, Hx Gastric Bypass Surgery, Hx Herniorrhaphy, Hx Hysterectomy, Hx Mastectomy, Hx Pacemaker, Hx Tonsillectomy, Hx Tubal Ligation - Immunizations Hx Diphtheria, Pertussis, Tetanus Vaccination: Yes Hx Pneumococcal Vaccination: 09/23/11 Vertical Provider Document - CONSTITUTIONAL Agree With Documented VS: Yes Exam Limitations: No Limitations General Appearance: No Apparent Distress - INFECTION CONTROL TRAVEL OUTSIDE OF THE [place] IN LAST 30 DAYS: No - HEENT HEENT: Atraumatic, Normocephalic, PERRLA - NECK Neck: Normal Inspection, Supple - RESPIRATORY Respiratory: Breath Sounds Normal, No Respiratory Distress Notes: Patient has tenderness to the right posterior and lateral ribs. There is no obvious ecchymosis or abrasion to these areas. There is no crepitus with palpation or subcutaneous emphysema. Patient's lungs were clear to auscultation. - CARDIOVASCULAR Cardiovascular: Regular Rate, Regular Rhythm - GI/ABDOMEN Gastrointestinal: Abdomen Soft, Abdomen Non-Tender, Normal Bowel Sounds - MUSCULOSKELETAL/EXTREMETIES Notes: Mild edema and 2 abrasions to the right patella. There is no ecchymosis. There is no active bleeding. Patient has full range of motion to the right knee. - NEURO Level of Consciousness: Awake, Alert, Appropriate - DERM Integumentary: Warm, Dry, No Rash Course - Re-evaluation Re-evalutation: 02/05/19 12:51 We will order imaging of the chest and right ribs as well as the right knee. Patient does have an abrasion to the right knee. 02/05/19 14:11 Patient has a minimally displaced posterior lateral right eighth rib fracture. Patient is on Eliquis. Due to the location of the left rib fracture I will obtain a CT abd/pelvis to rule out organ involvement. 02/05/19 16:54 CT of the abdomen and pelvis was negative for any acute abnormality but did show a small pericardial effusion. Upon reassessment patient is slightly tachycardic with a heart rate of 110. She did not get anything for pain earlier and is complaining of severe right rib pain. I will give a Elgin as well as a Lidoderm patch. Patient is in no acute distress. I did discuss the case with Dr. Elizondo my supervising physician who is also reviewed the CT scan and is in agreement with the discharge plan. She is aware of the small pericardial effusion. Will order a incentive spirometer. I did discuss the importance of taking this with the patient and using multiple times per hour to help prevent pneumonia. I did explain to her that with rib fractures people tend to not want to take deep breaths as it hurts. I did inform the patient can she can use warm compresses and brace the site when she coughs or deep breathes. Patient to return for any acute worsening symptoms such as shortness of breath, chest pain or any other new or worsening symptoms. 02/05/19 17:53 Patient not tachycardic or extremely hypoxic during discharge. Patient sitting upright in no acute distress. - Vital Signs Vital signs: Temp Pulse Resp BP Pulse Ox 98.0 F 83 15 114/61 92 02/05/19 12:25 02/05/19 12:25 02/05/19 12:25 02/05/19 12:25 02/05/19 12:25 - Laboratory Result Diagrams: 02/05/19 14:15 02/05/19 14:15 Laboratory results interpreted by me: 02/05/19 17:54 Laboratory 02/05/19 02/05/19 14:15 14:15 WBC 9.1 RBC 5.08 Hgb 15.6 H Hct 47.6 H MCV 94 MCH 30.8 MCHC 32.8 RDW 14.6 H Plt Count 292 Sodium 139.3 Potassium 3.8 Chloride 94 L Carbon Dioxide 38 H Anion Gap 7 BUN 17 Creatinine 0.59 Est GFR ( Amer) > 60 Est GFR (MDRD) Non-Af > 60 Glucose 117 H Calcium 9.5 - Diagnostic Test Radiology reviewed: Reports reviewed Radiology results interpreted by me: 02/05/19 14:10 Knee X-Ray 02/05/19 12:44 IMPRESSION: NEGATIVE STUDY OF THE RIGHT KNEE. NO RADIOGRAPHIC EVIDENCE OF ACUTE INJURY. Ribs w/Chest X-Ray 02/05/19 12:44 IMPRESSION: Minimally displaced posterolateral right 8th rib fracture. No pneumothorax. 02/05/19 16:54 Abdomen/Pelvis CT 02/05/19 14:02 IMPRESSION: Small pericardial effusion. Scattered diverticuli. No acute diverticulitis. Discharge - Discharge Clinical Impression: Rib fracture Qualifiers: Encounter type: initial encounter Rib fracture type: single rib Fracture type: closed Laterality: right Qualified Code(s): S22.31XA - Fracture of one rib, right side, initial encounter for closed fracture Fall Qualifiers: Encounter type: initial encounter Qualified Code(s): W19.XXXA - Unspecified fall, initial encounter Condition: Stable Disposition: HOME, SELF-CARE Additional Instructions: Today you were seen in the emergency department after a fall. Your x-ray did show a right lateral minimally displaced eighth rib fracture. We did obtain a CT of the abdomen and pelvis since you are on a blood thinner. What we were looking for was any abnormality to your organs such as the liver as this is very close to the rib fracture. CT scan was negative for any acute bleed. Rib fra ctures can be extremely painful. You may use warm compresses or brace the site with a pillow when you cough or deep breathe. I am providing you with a few narcotic pain medication pills called Elgin to go home with. Please take these for severe pain. You may also continue to take ibuprofen. I am also prescribing Lidoderm patches. We have given you 1 dose of this while in the emergency department. Please use the incentive spirometer as educated a few times per hour to help expand the lung. When you have a rib fracture you do not want to take deep breaths as this causes significant pain. You are at increased risk for pneumonia. Also smoking does not help, please try to limit the smoking of cigarettes. Please return to the emergency department if you develop fever and chills, persistent cough, coughing up blood, severe shortness of breath or chest pain, increasing pain, weakness, lightheadedness or fainting. Rib Injuries and Fractures You have been diagnosed as having either bruised or broken ribs. These two injuries are treated in the same way. It will usually take four to six weeks for these injured ribs to heal. Sometimes, rib belts or anesthetic injections of the chest wall help reduce the pain. If you are using a rib belt, you should cough or take a deep breath at least every hour or two to prevent lung complications. You should not engage in any strenuous physical activity until released by your physician. The usual rule is "if it hurts, don't do it." Rib fractures can lead to serious lung complications including lung collapse, hemorrhage, and pneumonia. You should call the physician or return at once if any of the following occur: (1) Fever or chills. (2) Persistent cough, coughing up blood, or shortness of breath. (3) Increasing pain. (4) Weakness, lightheadedness, or fainting. Prescriptions: Lidocaine [Lidoderm 5% (700 mg) Transdermal Patch] 1 patch TP DAILY #12 adh..patch Hydrocodone/Acetaminophen [Elgin 5-325 mg Tablet] 1 tab PO Q6 #12 tablet Forms: Smoking Cessation Education Referrals: AMY AKERS FNP-C [Primary Care Provider] - Follow up as needed
--- NOTE | 2019-02-05 13:36 | RADIOLOGY REPORT (SQ) ---
EXAM DESCRIPTION: KNEE RIGHT 4 VIEWS COMPLETED DATE/TIME: 02/05/2019 1:25 pm REASON FOR STUDY: fall, right knee pain/abrasion COMPARISON: None. NUMBER OF VIEWS: Four views. TECHNIQUE: AP, lateral, and both oblique radiographic images acquired of the right knee. LIMITATIONS: None. FINDINGS: MINERALIZATION: Normal. BONES: No acute fracture or dislocation. No worrisome bone lesions. JOINT: No effusion. SOFT TISSUES: No soft tissue swelling. No radio-opaque foreign body. OTHER: No other significant finding. IMPRESSION: NEGATIVE STUDY OF THE RIGHT KNEE. NO RADIOGRAPHIC EVIDENCE OF ACUTE INJURY. TECHNICAL DOCUMENTATION: JOB ID: [id number] [employer]- All Rights Reserved Reading location - IP/workstation name: [email or web address]
--- NOTE | 2019-02-05 13:40 | RADIOLOGY REPORT (SQ) ---
EXAM DESCRIPTION: RIBS RIGHT W/PA CHEST COMPLETED DATE/TIME: 02/05/2019 1:25 pm REASON FOR STUDY: fall, right rib pain COMPARISON: None. TECHNIQUE: Frontal view of the chest and additional views of the right ribs acquired. NUMBER OF VIEWS: Five view. LIMITATIONS: None. FINDINGS: FRONTAL CXR: No pneumothorax. No pleural effusion. No atelectasis or infiltrates. RIBS: Minimally displaced posterolateral right 8th rib fracture. OTHER: No other significant finding. IMPRESSION: Minimally displaced posterolateral right 8th rib fracture. No pneumothorax. COMMENT: SITE OF TRAUMA/COMPLAINT MARKED/STAMP COMPLETED: No TECHNICAL DOCUMENTATION: JOB ID: [id number] [employer]- All Rights Reserved Reading location - IP/workstation name: [email or web address]
[2019-02-05 14:30] LABS: HEMATOCRIT 47.6 % (36.0-47.0); HEMOGLOBIN 15.6 g/dL (12.0-15.5); MEAN CORPUSCULAR HEMOGLOBIN 30.8 pg (27.0-33.4); MEAN CORPUSCULAR HGB CONC 32.8 g/dL (32.0-36.0); MEAN CORPUSCULAR VOLUME 94 fl (80-97); PLATELET COUNT 292 10^3/uL (150-450); RED BLOOD COUNT 5.08 10^6/uL (3.72-5.28); RED CELL DISTRIBUTION WIDTH 14.6 % (11.5-14.0); WHITE BLOOD COUNT 9.1 10^3/uL (4.0-10.5)
[2019-02-05 14:47] LABS: ANION GAP 7 (5-19); BLOOD UREA NITROGEN 17 mg/dL (7-20); CALCIUM 9.5 mg/dL (8.4-10.2); CARBON DIOXIDE 38 mmol/L (22-30); CHLORIDE 94 mmol/L (98-107); GLUCOSE 117 mg/dL (75-110); POTASSIUM 3.8 mmol/L (3.6-5.0)
--- NOTE | 2019-02-05 15:21 | RADIOLOGY REPORT (SQ) ---
EXAM DESCRIPTION: CT ABD/PELVIS WITH IV ONLY COMPLETED DATE/TIME: 02/05/2019 3:11 pm REASON FOR STUDY: minimally displaced rib fx, rule out organ involve COMPARISON: None. TECHNIQUE: CT scan of the abdomen and pelvis performed using helical scanning technique with dynamic intravenous contrast injection. No oral contrast. Images reviewed with lung, soft tissue, and bone windows. Reconstructed coronal and sagittal MPR images reviewed. Delayed images for evaluation of the urinary system also acquired. All images stored on PACS. All CT scanners at this facility use dose modulation, iterative reconstruction, and/or weight based d osing when appropriate to reduce radiation dose to as low as reasonably achievable (ALARA). [facility]: Dose Right [facility]: CareDose [facility]: Dose Right [facility]: Teradose 4D [facility]: [employer] CONTRAST TYPE AND DOSE: contrast/concentration: Isovue 350.00 mg/ml; Total Contrast Delivered: 100.0 ml; Total Saline Delivered: 43.6 ml RENAL FUNCTION: BUN 17, creatinine 0.59 RADIATION DOSE: CT Rad equipment meets quality standard of care and radiation dose reduction techniq ues were employed. CTDIvol: NaN - NaN mGy. DLP: 0 mGy-cm.. LIMITATIONS: None. FINDINGS: LOWER CHEST: No consolidation or effusions. There is a small pericardial effusion. LIVER: Decreased attenuation throughout consistent with fatty infiltration. No focal masses. SPLEEN: Normal size. No focal lesions. PANCREAS: No masses. No significant calcifications. No adjacent inflammation or peripancreatic fluid collections. Pancreatic duct not dilated. GALLBLADDER: No identified stones by CT criteria. No inflammatory changes to suggest cholecystitis. ADRENAL GLANDS: No significant masses or asymmetry. RIGHT KIDNEY AND URETER: No solid masses. No significant calcifications. No hydronephrosis or hyd roureter. LEFT KIDNEY AND URETER: No solid masses. No significant calcifications. No hydronephrosis or hydr oureter. AORTA AND VESSELS: No aneurysm. No dissection. Renal arteries, SMA, celiac without stenosis. RETROPERITONEUM: No retroperitoneal adenopathy, hemorrhage or masses. BOWEL AND PERITONEAL CAVITY: Scattered diverticuli. No acute diverticulitis. APPENDIX: Not visualized. PELVIS: No mass. No free fluid. Normal bladder. ABDOMINAL WALL: No masses. No hernias. BONES: No significant or acute findings. OTHER: No other significant finding. IMPRESSION: Small pericardial effusion. Scattered diverticuli. No acute diverticulitis. TECHNICAL DOCUMENTATION: JOB ID: [id number] Quality ID # [id number]: Final reports with documentation of one or more dose reduction techniques (e.g., Au tomated exposure control, adjustment of the mA and/or kV according to patient size, use of iterative reconstruction technique) 2010 [employer]- All Rights Reserved Reading location - IP/workstation name: [email or web address]
[2019-02-05] MEDS ORDERED: HYDROCODONE/ACETAMINOPHEN 5-325 MG (6 TAB/ER DISP) PO PRN (16:53)
[2019-02-05] MEDS ORDERED: HYDROCODONE/ACETAMINOPHEN 5-325 MG TABLET PO ONE (16:53)
[2019-02-05] MEDS ORDERED: LIDOCAINE 5% (700 MG) TRANSDERMAL ADH..PATCH TP ONE (16:53)
[2019-02-05 17:40] VITALS: BP 138/91
== END 2019-02-05 17:40 | disposition home or self-care (01) ==
LOC: ER 12:19
DX: S22.31XA Fracture of one rib, right side, initial encounter for closed fracture (principal); S80.211A Abrasion, right knee, initial encounter; R07.81 Pleurodynia; M25.561 Pain in right knee; W01.198A Fall on same level from slipping, tripping and stumbling with subsequent striking against other object, initial encounter; Y93.89 Activity, other specified; Y92.009 Unspecified place in unspecified non-institutional (private) residence as the place of occurrence of the external cause; I31.3 Pericardial effusion (noninflammatory); R00.0 Tachycardia, unspecified; K57.90 Diverticulosis of intestine, part unspecified, without perforation or abscess without bleeding; E11.9 Type 2 diabetes mellitus without complications; J44.9 Chronic obstructive pulmonary disease, unspecified; I10 Essential (primary) hypertension; I48.91 Unspecified atrial fibrillation; Z79.02 Long term (current) use of antithrombotics/antiplatelets
CPT/HCPCS: 99284; 36415; 85027; 80048; 73564; 71101; 74177; J3490

== ENCOUNTER → 2019-03-27 | Outpatient (CLI) | payer MEDICAID ==
--- NOTE | 2019-03-27 14:49 | RADIOLOGY REPORT (SQ) ---
EXAM DESCRIPTION: MRI LUMBAR SPINE WITHOUT COMPLETED DATE/TIME: 03/27/2019 1:44 pm REASON FOR STUDY: M54.16 RADICULOPATHY, LUMBAR REGION M54.16 RADICULOPATHY, LUMBAR REGION COMPARISON: Several, most recent 07/10/2017. TECHNIQUE: Sagittal and Axial imaging includes T1, T2, STIR and gradient echo sequences. Coronal T2/ HASTE imaging. LIMITATIONS: Motion. FINDINGS: VISUALIZED UPPER ABDOMEN: Limited evaluation. No acute or suspicious findings suggested. SEGMENTATION: No transitional anatomy. The lowest well-developed disc space is labeled L5-S1. ALIGNMENT: Anatomic. VERTEBRAE: Intact. BONE MARROW: Normal. No marrow replacement or reactive changes. DISC SIGNAL: Desiccation L4-5. POSTERIOR ELEMENTS: Generally intact. No pars defect evident. HARDWARE: None in the spine. CORD AND CONUS: Normal in size and signal intensity. Conus at the appropriate level. SOFT TISSUES: No aortic aneurysm seen. No bulky retroperitoneal adenopathy or mass. No paraspinal mas s or fluid. L1-L2: No significant spinal stenosis or exit foraminal stenosis. L2-L3: Facet arthropathy. No significant stenosis. L3-L4: Mild narrowing of the spinal canal due to disc bulge and facet arthropathy. L4-L5: Mild narrowing of the spinal canal due to disc bulge and facet arthropathy. L5-S1: Disc bulge and facet arthropathy. No significant stenosis. LOWER THORACIC: Incompletely imaged. No stenosis seen. SACRUM: Visualized upper sacrum intact. OTHER: No other significant findings. IMPRESSION: Facet arthropathy. Mild spinal stenosis L3- 4 and L4-5. TECHNICAL DOCUMENTATION: JOB ID: [id number] [employer]- All Rights Reserved Reading location - IP/workstation name: [email or web address]
== END ==
LOC: RAD 12:48
PROVIDERS: ATTEND Nurse Practitioner Primary Care
DX: M51.17 Intervertebral disc disorders with radiculopathy, lumbosacral region (principal); M48.061 Spinal stenosis, lumbar region without neurogenic claudication
CPT/HCPCS: 72148

== ENCOUNTER 2019-03-29 15:57 | Emergency (ER) | payer MEDICAID ==
--- NOTE | 2019-03-29 16:13 | ER Document Report ---
ED Medical Screen (RME) - General Chief Complaint: Leg Swelling Stated Complaint: SWELLING LEGS Time Seen by Provider: 03/29/19 16:11 Primary Care Provider: AMY AKERS FNP-C [Primary Care Provider] - Follow up as needed Information source: Patient Notes: Patient presents complaining of swelling to the lower extremities. Patient states that she is gained about 30 to 40 pounds over the past 2 weeks. Patient complains of swelling to the bilateral lower extremities that extends to the lower abdomen. Patient complains of shortness of breath and chest pain that started yesterday. Patient was prescribed Lasix but took herself off of this medication about a week ago because she did not think it was helping her. Patient denies any history of CHF. hx: Hilda soto I have greeted and performed a rapid initial assessment of this patient. A comprehensive ED assessment and evaluation of the patient, analysis of test results and completion of the medical decision making process will be conducted by additional ED providers. TRAVEL OUTSIDE OF THE [place] IN LAST 30 DAYS: No - Related Data Allergies/Adverse Reactions: aspirin [Aspirin] Allergy (Intermediate, Verified 02/05/19 12:20) rash, vomiting Past Medical History - Past Medical History Cardiac Medical History: Reports: Hx Atrial Fibrillation, Hx Hypercholesterolemia - States in past, but not sure now, Hx Hypertension, Hx Heart Murmur Denies: Hx Congestive Heart Failure, Hx Coronary Artery Disease, Hx Heart Attack, Hx Peripheral Vascular Disease, Hx Pulmonary Embolism Pulmonary Medical History: Reports: Hx COPD, Hx Pneumonia, Hx Sleep Apnea Denies: Hx Asthma, Hx Bronchitis, Hx Respiratory Failure, Hx Tuberculosis Endocrine Medical History: Reports: Hx Diabetes Mellitus Type 2 Renal/ Medical History: Reports: Hx Ovarian Cysts. Denies: Hx Peritoneal Dialysis GI Medical History: Reports: Hx Gastroesophageal Reflux Disease, Hx Irritable Bowel - DIARRHEA TYPE, Hx Ulcer. Denies: Hx Crohn's Disease, Hx Hiatal Hernia, Hx Pancreatitis Musculoskeltal Medical History: Reports Hx Arthritis, Denies Hx Muscular Dystrophy Psychiatric Medical History: Reports: Hx Anxiety, Hx Depression Denies: Hx Bipolar Disorder, Hx Post Traumatic Stress Disorder, Hx Schizophrenia Traumatic Medical History: Reports: Hx Fractures - Clavicle, nose, cheek bone Past Surgical History: Reports: Hx Section. Denies: Hx Appendectomy, Hx Bowel Surgery, Hx Cholecystectomy, Hx Colostomy, Hx Coronary Artery Bypass Graft, Hx Gastric Bypass Surgery, Hx Herniorrhaphy, Hx Hysterectomy, Hx Mastectomy, Hx Pacemaker, Hx Tonsillectomy, Hx Tubal Ligation - Immunizations Hx Diphtheria, Pertussis, Tetanus Vaccination: Yes Physical Exam - Vital signs Vitals: Temp Pulse Resp BP Pulse Ox 97.6 F 82 18 140/74 H 93 03/29/19 16:09 03/29/19 16:09 03/29/19 16:09 03/29/19 16:09 03/29/19 16:09 - Respiratory Respiratory status: No respiratory distress Breath sounds: Nonproductive cough, Rales - Right lower lobe Course - Vital Signs Vital signs: Temp Pulse Resp BP Pulse Ox 97.6 F 82 18 140/74 H 93 03/29/19 16:09 03/29/19 16:09 03/29/19 16:09 03/29/19 16:09 03/29/19 16:09 Doctor's Discharge - Discharge Referrals: AMY AKERS [employer] [Primary Care Provider] - Follow up as needed
[2019-03-29 16:53] LABS: ABSOLUTE BASOPHILS # (AUTO) 0.1 10^3/uL (0.0-0.2); ABSOLUTE EOSINOPHILS # (AUTO) 0.1 10^3/uL (0.0-0.6); ABSOLUTE MONOCYTES (AUTO) 0.7 10^3/uL (0.1-1.4); ABSOLUTE NEUT (AUTO) 6.2 10^3/uL (1.7-8.2); BASOPHILS % (AUTO) 1.3 % (0-2); EOSINOPHILS % (AUTO) 1.5 % (0-6); HEMATOCRIT 43.8 % (36.0-47.0); HEMOGLOBIN 13.5 g/dL (12.0-15.5); LYMPHOCYTES % (AUTO) 22.1 % (13-45); MEAN CORPUSCULAR HEMOGLOBIN 27.6 pg (27.0-33.4); MEAN CORPUSCULAR HGB CONC 30.9 g/dL (32.0-36.0); MEAN CORPUSCULAR VOLUME 90 fl (80-97); MONOCYTES % (AUTO) 7.4 % (3-13); PLATELET COUNT 281 10^3/uL (150-450); RED BLOOD COUNT 4.89 10^6/uL (3.72-5.28); RED CELL DISTRIBUTION WIDTH 16.4 % (11.5-14.0); SEGMENTED NEUTROPHILS % (AUTO) 67.7 % (42-78); TOTAL CELLS COUNTED % (AUTO) 100 %; WHITE BLOOD COUNT 9.2 10^3/uL (4.0-10.5)
[2019-03-29 17:12] LABS: ALBUMIN 3.6 g/dL (3.5-5.0); ALKALINE PHOSPHATASE 129 U/L (38-126); ANION GAP 7 (5-19); ASPARTATE AMINO TRANSFERASE 16 U/L (14-36); BILIRUBIN,DIRECT 0.3 mg/dL (0.0-0.4); BILIRUBIN,TOTAL 1.3 mg/dL (0.2-1.3); BLOOD UREA NITROGEN 6 mg/dL (7-20); CARBON DIOXIDE 35 mmol/L (22-30); CHLORIDE 102 mmol/L (98-107); GLUCOSE 96 mg/dL (75-110); POTASSIUM 3.8 mmol/L (3.6-5.0); TOTAL PROTEIN 6.7 g/dL (6.3-8.2)
[2019-03-29 17:23] LABS: NT PRO BNP 1800 pg/mL (<125)
[2019-03-29 17:25] LABS: TROPONIN I < 0.012 ng/mL
--- NOTE | 2019-03-29 17:26 | RADIOLOGY REPORT (SQ) ---
EXAM DESCRIPTION: CHEST 2 VIEWS COMPLETED DATE/TIME: 03/29/2019 5:16 pm REASON FOR STUDY: cp, sob, edema COMPARISON: 08/15/2018 EXAM PARAMETERS: NUMBER OF VIEWS: two views TECHNIQUE: Digital Frontal and Lateral radiographic views of the chest acquired. RADIATION DOSE: NA LIMITATIONS: none FINDINGS: LUNGS AND PLEURA: No opacities, masses or pneumothorax. No pleural effusion. MEDIASTINUM AND HILAR STRUCTURES: No masses or contour abnormalities. HEART AND VASCULAR STRUCTURES: Unchanged gross cardiomegaly. BONES: No acute findings. HARDWARE: None in the chest. OTHER: No other significant finding. IMPRESSION: Unchanged gross cardiomegaly. No acute abnormality of the lungs. TECHNICAL DOCUMENTATION: JOB ID: [id number] [employer]- All Rights Reserved Reading location - IP/workstation name: [email or web address]
[2019-03-29 17:44] LABS: APPEARANCE,URINE CLEAR; BILIRUBIN,URINE NEGATIVE (NEGATIVE); COLOR,URINE YELLOW; GLUCOSE, URINE NEGATIVE (NEGATIVE); KETONES,URINE NEGATIVE (NEGATIVE); PROTEIN,URINE NEGATIVE (NEGATIVE); URINE SPECIFIC GRAVITY 1.016; UROBILINOGEN,URINE NEGATIVE mg/dL (<2.0)
[2019-03-29] MEDS ORDERED: FUROSEMIDE INJ/PF 40 MG/4 ML SDV IV ONE (17:48)
[2019-03-29] MEDS ORDERED: MORPHINE SULFATE 10 MG/ML INJ IV ONE (17:49)
--- NOTE | 2019-03-29 17:52 | ER Document Report ---
ED General - General Chief Complaint: Swelling Stated Complaint: SWELLING LEGS Time Seen by Provider: 03/29/19 16:11 Primary Care Provider: AMY AKERS FNP-C [Primary Care Provider] - Follow up as needed TRAVEL OUTSIDE OF THE [place] IN LAST 30 DAYS: No - HPI Notes: Patient is a 59-year-old female that presents to the emergency department for chief complaint of peripheral edema. Patient reports increasing peripheral edema over the last 2 to 3 months. She states over the last 2 to 3 weeks it has been getting significantly worse. She states she has been seeing a Dr. Linda cardiology and her primary care doctor at [facility] for this. She states that she has been on different doses of Lasix and has been frustrated with the changes therefore she stopped taking it over the last week. Patient also reports shortness of breath over the last few weeks. She states she is still smoking and occasionally uses her albuterol for her COPD. She denies any recent fevers or chills and chest pain. She denies history of CHF. Past Medical History: COPD, diabetes, hypertension, A. fib, stroke, hyperlipidemia Past Surgical History: Reviewed in chart Social History: Daily tobacco. Denies alcohol or drug use Family History: Reviewed and noncontributory for presenting illness Allergies: Reviewed, see documented allergy list. REVIEW OF SYSTEMS: CONSTITUTIONAL : No fever No chills No diaphoresis No recent illness EENT: No vision changes No congestion No sore throat CARDIOVASCULAR: No chest pain No palpitations Edema RESPIRATORY: shortness of breath No cough difficulty breathing GASTROINTESTINAL: No abdominal pain No nausea No vomiting No diarrhea GENITOURINARY: No dysuria No hematuria No difficulty urinating MUSCULOSKELETAL: No back pain No leg pain No arm pain SKIN: No rashes No lesions LYMPHATIC: No swollen, enlarged glands. NEUROLOGICAL: No lightheadedness No headache No weakness No paresthesias PSYCHIATRIC: No anxiety No depression PHYSICAL EXAMINATION: Vital signs reviewed, nursing noted reviewed. GENERAL: Well-appearing, obese and in no acute distress. HEAD: Atraumatic, normocephalic. EYES: Eyes appear normal, extraocular movements intact, sclera anicteric, conjunctiva are normal. ENT: nares patent, oropharynx clear without exudates. Moist mucous membranes. NECK: Normal range of motion, supple without lymphadenopathy LUNGS: Breath sounds diminished with expiratory wheezing to auscultation bilaterally and equal. No rales or rhonchi. HEART: Regular rate and rhythm without murmurs ABDOMEN: Soft, nontender, normoactive bowel sounds. No rebound, guarding, or rigidity. No masses appreciated. EXTREMITIES: Nontender, good range of motion. Pitting edema bilateral lower extremities through proximal thighs symmetric bilaterally. NEUROLOGICAL: No focal neurological deficits. Moves all extremities spontaneously Motor and sensory grossly intact on exam. PSYCH: Normal mood, normal affect. SKIN: Warm, Dry, normal turgor, no rashes or lesions noted on exposed skin - Related Data Allergies/Adverse Reactions: aspirin [Aspirin] Allergy (Intermediate, Verified 02/05/19 12:20) rash, vomiting Home Medications: Cartizem, Eliquis. Past Medical History - General Information source: Patient - Social History Smoking Status: Current Every Day Smoker Family History: Reviewed & Not Pertinent Patient has suicidal ideation: No Patient has homicidal ideation: No - Past Medical History Cardiac Medical History: Reports: Hx Atrial Fibrillation, Hx Hypercholesterolemia - States in past, but not sure now, Hx Hypertension, Hx Heart Murmur Denies: Hx Congestive Heart Failure, Hx Coronary Artery Disease, Hx Heart Attack, Hx Peripheral Vascular Disease, Hx Pulmonary Embolism Pulmonary Medical History: Reports: Hx COPD, Hx Pneumonia, Hx Sleep Apnea Denies: Hx Asthma, Hx Bronchitis, Hx Respiratory Failure, Hx Tuberculosis Endocrine Medical History: Reports: Hx Diabetes Mellitus Type 2 Renal/ Medical History: Reports: Hx Ovarian Cysts. Denies: Hx Peritoneal Dialysis GI Medical History: Reports: Hx Gastroesophageal Reflux Disease, Hx Irritable Bowel - DIARRHEA TYPE, Hx Ulcer. Denies: Hx Crohn's Disease, Hx Hiatal Hernia, Hx Pancreatitis Musculoskeletal Medical History: Reports Hx Arthritis, Denies Hx Muscular Dystrophy Psychiatric Medical History: Reports: Hx Anxiety, Hx Depression Denies: Hx Bipolar Disorder, Hx Post Traumatic Stress Disorder, Hx Schizophrenia Traumatic Medical History: Reports: Hx Fractures - Clavicle, nose, cheek bone Past Surgical History: Reports: Hx Section. Denies: Hx Appendectomy, Hx Bowel Surgery, Hx Cholecystectomy, Hx Colostomy, Hx Coronary Artery Bypass Graft, Hx Gastric Bypass Surgery, Hx Herniorrhaphy, Hx Hysterectomy, Hx Mastectomy, Hx Pacemaker, Hx Tonsillectomy, Hx Tubal Ligation - Immunizations Hx Diphtheria, Pertussis, Tetanus Vaccination: Yes Hx Pneumococcal Vaccination: 09/23/11 Physical Exam - Vital signs Vitals: Temp Pulse Resp BP Pulse Ox 97.6 F 82 18 140/74 H 93 03/29/19 16:09 03/29/19 16:09 03/29/19 16:09 03/29/19 16:09 03/29/19 16:09 Course - Re-evaluation Re-evalutation: 03/29/19 17:52 Vitals reviewed. Nurse notes reviewed. Patient has significant lower extremity edema through proximal thighs. Her edema is symmetric bilaterally. She does report pain from the edema and was given morphine for pain control. Patient is currently anticoagulated on Eliquis and states she has been compliant. She is not experiencing any chest pain to suggest acute PE. I am not suspicious clinically for bilateral DVTs. Patient's lab work shows elevated BNP and she has cardiomegaly on chest x-ray without pulmonary vascular congestion. Clinically I suspect new onset congestive heart failure. Chart review shows patient had a normal echo in 2013 and she does not believe she has had one since. At this point I recommended admission for work-up of congestive heart failure and for diuresis. Patient has declined admission and would like to continue managing her symptoms as an outpatient. She is requesting a referral to a new senior quality technician and will be given Dr. Toth contact information. Patient will be given a dose of Lasix in the ER to begin diuresis and her home L asix will be increased to 40 twice daily. Patient counseled on returning to the emergency room at any point for further care. She has capacity to make medical decisions and understands her options of admission versus outpatient close follow-up. At this point she is oxygenating well on room air and in no acute respiratory distress and I feel she is stable for discharge home with close return precautions. Laboratory 03/29/19 03/29/19 03/29/19 16:38 16:38 16:38 WBC 9.2 RBC 4.89 Hgb 13.5 Hct 43.8 MCV 90 MCH 27.6 MCHC 30.9 L RDW 16.4 H Plt Count 281 Lymph % (Auto) 22.1 [place] % (Auto) 7.4 Eos % (Auto) 1.5 Baso % (Auto) 1.3 Absolute Neuts (auto) 6.2 Absolute Lymphs (auto) 2.0 Absolute Monos (auto) 0.7 Absolute Eos (auto) 0.1 Absolute Basos (auto) 0.1 Seg Neutrophils % 67.7 Sodium 144.3 Potassium 3.8 Chloride 102 Carbon Dioxide 35 H Anion Gap 7 BUN 6 L Creatinine 0.53 Est GFR ( Amer) > 60 Est GFR (MDRD) Non-Af > 60 Glucose 96 Calcium 9.0 Magnesium 1.6 Total Bilirubin 1.3 Direct Bilirubin 0.3 Neonat Total Bilirubin Not Reportable Neonat Direct Bilirubin Not Reportable Neonat Indirect Bili Not Reportable AST 16 ALT 10 Alkaline Phosphatase 129 H Troponin I < 0.012 NT-Pro-B Natriuret Pep 1800 H Total Protein 6.7 Albumin 3.6 Urine Color Urine Appearance Urine pH Ur Specific [place] Urine Protein Urine Glucose (UA) Urine Ketones Urine Blood Urine Nitrite (Reflex) Urine Bilirubin Urine Urobilinogen Leukocyte Esterase Rfl Urine Bacteria (Auto) Urine WBC (Reflex) Squamous Epi Cells Auto Urine Mucus (Auto) Urine Ascorbic Acid 03/29/19 17:30 WBC RBC Hgb Hct MCV MCH MCHC RDW Plt Count Lymph % (Auto) [place] % (Auto) Eos % (Auto) Baso % (Auto) Absolute Neuts (auto) Absolute Lymphs (auto) Absolute Monos (auto) Absolute Eos (auto) Absolute Basos (auto) Seg Neutrophils % Sodium Potassium Chloride Carbon Dioxide Anion Gap BUN Creatinine Est GFR ( Amer) Est GFR (MDRD) Non-Af Glucose Calcium Magnesium Total Bilirubin Direct Bilirubin Neonat Total Bilirubin Neonat Direct Bilirubin Neonat Indirect Bili AST ALT Alkaline Phosphatase Troponin I NT-Pro-B Natriuret Pep Total Protein Albumin Urine Color YELLOW Urine Appearance CLEAR Urine pH 8.0 Ur Specific [place] 1.016 Urine Protein NEGATIVE Urine Glucose (UA) NEGATIVE Urine Ketones NEGATIVE Urine Blood NEGATIVE Urine Nitrite (Reflex) NEGATIVE Urine Bilirubin NEGATIVE Urine Urobilinogen NEGATIVE Leukocyte Esterase Rfl NEGATIVE Urine Bacteria (Auto) 1+ Urine WBC (Reflex) 1 Squamous Epi Cells Auto 5 Urine Mucus (Auto) OCC Urine Ascorbic Acid NEGATIVE Chest X-Ray 03/29/19 16:12 IMPRESSION: Unchanged gross cardiomegaly. No acute abnormality of the lungs. - Vital Signs Vital signs: Temp Pulse Resp BP Pulse Ox 97.6 F 82 18 140/74 H 98 03/29/19 16:09 03/29/19 16:09 03/29/19 16:09 03/29/19 16:09 10/26/19 16:12 - Laboratory Result Diagrams: 10/26/19 16:38 03/29/19 16:38 Laboratory results interpreted by me: 03/29/19 03/29/19 03/29/19 16:38 16:38 16:38 MCHC 30.9 L RDW 16.4 H Carbon Dioxide 35 H BUN 6 L Alkaline Phosphatase 129 H NT-Pro-B Natriuret Pep 1800 H - EKG Interpretation by Me Additional EKG results interpreted by me: 03/29/19 17:52 Interpreted by myself [id number]: Atrial fibrillation, rate 89, normal axis, no ectopy, no STEMI Discharge - Discharge Clinical Impression: Peripheral edema, COPD exacerbation Condition: Stable Disposition: HOME, SELF-CARE Instructions: Chronic Obstructive Lung Disease ([facility]), Stop Smoking ([facility]), Edema, Peripheral ([facility]) Additional Instructions: Please return to the emergency department if you have any worsening, or concern of your symptoms. Please return to the emergency department if you develop chest pain, difficulty breathing, severe abdominal pain, or ongoing vomiting. Please follow-up with your primary care physician in 2-3 days and any other recommended physicians. If prescribed, take all medications as directed. If you have any questions or concerns do not hesitate to return the emergency department for evaluation. Please contact cardiology first thing Sunday morning to be evaluated and have outpatient cardiac echo performed to test for heart failure. Use your albuterol inhaler or nebulized machine every 4 hours for shortness of breath Prescriptions: Furosemide [Lasix 40 mg Tablet] 40 mg PO BID #30 tablet Forms: Smoking Cessation Education Referrals: AMY AKERS FNP-C [Primary Care Provider] - Follow up as needed FABIÁN OROZCO MD [ACTIVE STAFF] - 03/31/19
[2019-03-29 19:04] VITALS: BP 138/88
--- NOTE | 2019-03-29 21:23 | EKG REPORT ---
SEVERITY:- ABNORMAL ECG - ATRIAL FIBRILLATION, V-RATE 67-99 : Confirmed by: Sakina Paulino MD 29-Mar-2019 21:23:05
== END 2019-03-29 19:05 | disposition home or self-care (01) ==
LOC: ER 15:57
DX: J44.1 Chronic obstructive pulmonary disease with (acute) exacerbation (principal); R60.0 Localized edema; R06.02 Shortness of breath; E11.9 Type 2 diabetes mellitus without complications; I10 Essential (primary) hypertension; F17.200 Nicotine dependence, unspecified, uncomplicated
CPT/HCPCS: 93005; 36415; 83735; 85025; 80053; 81001; 84484; 83880; 71046; 93010; J1940; J2270; 96374; 96375; 99284

== ENCOUNTER 2019-05-19 21:09 | Inpatient (IN) | payer MEDICAID ==
[2019-05-19] MEDS ORDERED: NORMAL SALINE 1000 ML 1,000 ML IV ONE (22:14)
[2019-05-19 22:39] LABS: ABSOLUTE BASOPHILS # (AUTO) 0.1 10^3/uL (0.0-0.2); ABSOLUTE LYMPHOCYTES (AUTO) 1.6 10^3/uL (0.5-4.7); ABSOLUTE MONOCYTES (AUTO) 1.3 10^3/uL (0.1-1.4); ABSOLUTE NEUT (AUTO) 15.2 10^3/uL (1.7-8.2); BASOPHILS % (AUTO) 0.4 % (0-2); HEMATOCRIT 46.8 % (36.0-47.0); HEMOGLOBIN 15.2 g/dL (12.0-15.5); LYMPHOCYTES % (AUTO) 8.6 % (13-45); MEAN CORPUSCULAR HGB CONC 32.6 g/dL (32.0-36.0); MEAN CORPUSCULAR VOLUME 89 fl (80-97); PLATELET COUNT 213 10^3/uL (150-450); RED BLOOD COUNT 5.26 10^6/uL (3.72-5.28); RED CELL DISTRIBUTION WIDTH 17.5 % (11.5-14.0); TOTAL CELLS COUNTED % (AUTO) 100 %; WHITE BLOOD COUNT 18.1 10^3/uL (4.0-10.5)
[2019-05-19 22:51] LABS: INTERNATIONAL RATION (INR) 1.41; PARTIAL THROMBOPLASTIN TIME 29.3 SEC (23.5-35.8); PROTHROMBIN TIME 17.4 SEC (11.4-15.4)
[2019-05-19 22:58] LABS: ALKALINE PHOSPHATASE 128 U/L (38-126); ANION GAP 14 (5-19); ASPARTATE AMINO TRANSFERASE 741 U/L (14-36); BILIRUBIN,DIRECT 0.5 mg/dL (0.0-0.4); BILIRUBIN,TOTAL 1.1 mg/dL (0.2-1.3); BLOOD UREA NITROGEN 69 mg/dL (7-20); CARBON DIOXIDE 34 mmol/L (22-30); CHLORIDE 90 mmol/L (98-107); GLUCOSE 153 mg/dL (75-110); POTASSIUM 3.2 mmol/L (3.6-5.0); TOTAL PROTEIN 7.1 g/dL (6.3-8.2)
[2019-05-19 23:04] LABS: ALCOHOL < 10 mg/dL (NONE DETECTED)
[2019-05-19 23:05] LABS: APPEARANCE,URINE CLEAR; BILIRUBIN,URINE NEGATIVE (NEGATIVE); COLOR,URINE YELLOW; GLUCOSE, URINE NEGATIVE (NEGATIVE); KETONES,URINE NEGATIVE (NEGATIVE); LEUKOCYTE ESTERASE,URINE NEGATIVE (NEGATIVE); NITRITE,URINE NEGATIVE (NEGATIVE); PROTEIN,URINE 30 mg/dL (NEGATIVE); URINE SPECIFIC GRAVITY 1.016; UROBILINOGEN,URINE NEGATIVE mg/dL (<2.0)
--- NOTE | 2019-05-19 23:05 | ER Document Report ---
ED General - General Chief Complaint: Altered Mental Status Stated Complaint: ALTERED MENTAL STATUS Time Seen by Provider: 05/19/19 22:03 Primary Care Provider: AMY AKERS FNP-C [Primary Care Provider] - Follow up as needed TRAVEL OUTSIDE OF THE [place] IN LAST 30 DAYS: No - HPI Notes: Patient is a 59-year-old female with known multiple medical issues and compliance issues, who presents to the emergency department for evaluation of altered mental status. History is obtained entirely from the son at this point. Evidently, she was sitting on the toilet for several hours today. She is unable to tell me why. There was no report of injury or fall. She evidently w as just sitting there. Patient cannot answer any questions for me appropriately at this time. - Related Data Allergies/Adverse Reactions: aspirin [Aspirin] Allergy (Intermediate, Verified 02/05/19 12:20) rash, vomiting Home Medications: neuronitin 600mg qid. oxycodone 10/325mg tid prn. clonazepam 0.5mg bid. metoprolol 12.5mg bid. ambien 10mg qhs prn. eliquis 5mg bid. viibryd 40mg qd. atorvastatin 40mg qhs. diltiazem 60mg tid. zofran 4mg prn n/v. lasix 20mg bid. prilosec 20mg bid Past Medical History - General Information source: Relative, [facility] Records - Social History Smoking Status: Current Every Day Smoker Chew tobacco use (# tins/day): No Frequency of alcohol use: Heavy Family History: Reviewed & Not Pertinent Patient has suicidal ideation: No Patient has homicidal ideation: No - Past Medical History Cardiac Medical History: Reports: Hx Atrial Fibrillation, Hx Hypercholesterolemia - States in past, but not sure now, Hx Hypertension, Hx Heart Murmur Denies: Hx Congestive Heart Failure, Hx Coronary Artery Disease, Hx Heart Attack, Hx Peripheral Vascular Disease, Hx Pulmonary Embolism Pulmonary Medical History: Reports: Hx COPD, Hx Pneumonia, Hx Sleep Apnea Denies: Hx Asthma, Hx Bronchitis, Hx Respiratory Failure, Hx Tuberculosis Neurological Medical History: Reports: Hx Cerebrovascular Accident Endocrine Medical History: Reports: Hx Diabetes Mellitus Type 2 Renal/ Medical History: Reports: Hx Ovarian Cysts. Denies: Hx Peritoneal Dialysis GI Medical History: Reports: Hx Gastroesophageal Reflux Disease, Hx Irritable Bowel - DIARRHEA TYPE, Hx Ulcer. Denies: Hx Crohn's Disease, Hx Hiatal Hernia, Hx Pancreatitis Musculoskeletal Medical History: Reports Hx Arthritis, Denies Hx Muscular Dystrophy Psychiatric Medical History: Reports: Hx Anxiety, Hx Depression Denies: Hx Bipolar Disorder, Hx Post Traumatic Stress Disorder, Hx Schizophrenia Traumatic Medical History: Reports: Hx Fractures - Clavicle, nose, cheek bone Past Surgical History: Reports: Hx Section. Denies: Hx Appendectomy, Hx Bowel Surgery, Hx Cholecystectomy, Hx Colostomy, Hx Coronary Artery Bypass Graft, Hx Gastric Bypass Surgery, Hx Herniorrhaphy, Hx Hysterectomy, Hx Mastectomy, Hx Pacemaker, Hx Tonsillectomy, Hx Tubal Ligation - Immunizations Hx Diphtheria, Pertussis, Tetanus Vaccination: Yes Hx Pneumococcal Vaccination: 09/23/11 Review of Systems - Review of Systems -: Yes ROS unobtainable due to patient's medical condition Physical Exam - Vital signs Vitals: Temp Pulse Resp BP Pulse Ox 98 F 119 H 14 127/82 H 92 05/19/19 21:45 05/19/19 21:45 05/19/19 21:45 05/19/19 21:45 05/19/19 21:45 - Notes Notes: This is a 59-year-old female who appears much older than her stated age. She is extremely disheveled, malodorous. She is resting comfortably really with her eyes closed, awakens and opens her eyes to verbal stimuli, GCS 14, although she only follows commands intermittently. Head is normocephalic. She does have what appears to be a possible seborrheic dermatitis with secondary ulceration noted in the frontoparietal aspect of her scalp. No active bleeding, no significant surrounding erythema. Pupils are equal round, reactive to light. Nares are patent. Oral mucosa is dry. Heart is irregularly irregular mildly tachycardic. Lungs show expiratory wheezes throughout. Abdomen is diffusely tender with normoactive bowel sounds. It is soft, no rebound or guarding. Extremities without cyanosis or clubbing. No posterior calf tenderness. Skin is warm and dry. Patient awakens easily to verbal stimuli. She is unable to fo llow directions enough to evaluate for cerebellar dysfunction or strength testing. She seems to have some left-sided neglect. No gross facial asymmetry. Course - Re-evaluation Re-evalutation: 05/20/19 00:31 Patient presents to the emergency department for evaluation. She has complete left-sided neglect. I was concerned about the possibility of sepsis, however, in this patient with an elevated heart rate as well. Laboratory investigations revealed marked leukocytosis at 18,000. Her creatinine is elevated at 2.62, which at baseline is normal. She is given IV fluids. She does meet sepsis criteria, will cover her with Merrem. I do not have any clear source of infection at this point, blood cultures are pending. Her lactate was normal. Of more concern, however, were the new hypodensities noted on the right temporal lobe and in the right posterior lateral ventricle. They were concerning for mass versus infarction. This patient has a long history of noncompliance. I do suspect this is secondary to noncompliance with her Eliquis in light of her atrial fibrillation. I do not have a strong suspicion of sepsis in this patient, but again she was covered with Merrem. I did go ahead and dose her with 1 IV push of Cardizem to address her elevated heart rate. Her pressures have been stable. This patient is allergic to aspirin. She was found to be hypokalemic, I did place this in 1 of her liters of fluid. She is given 2 L of normal saline bolus, this meets sepsis criteria for ideal body weight, as this i s an extremely noncompliant patient and I do not have a recent echocardiogram to evaluate whether or not she has systolic heart failure. She is morbidly obese with a BMI of 40, I do not feel comfortable giving her over [address] I spoke with Dr. Cook, he will admit the patient for further care. - Vital Signs Vital signs: Temp Pulse Resp BP Pulse Ox 98 F 113 H 17 124/53 L 97 05/19/19 21:55 05/19/19 21:55 05/19/19 21:55 05/19/19 21:55 05/19/19 22:05 - Laboratory Result Diagrams: 05/19/19 22:25 05/19/19 22:25 Laboratory results interpreted by me: 05/19/19 05/19/19 05/19/19 22:25 22:25 22:25 WBC 18.1 H RDW 17.5 H Lymph % (Auto) 8.6 L Absolute Neuts (auto) 15.2 H Seg Neutrophils % 84.0 H PT 17.4 H Potassium 3.2 L Chloride 90 L Carbon Dioxide 34 H BUN 69 H Creatinine 2.32 H Est GFR ( Amer) 26 L Est GFR (MDRD) Non-Af 22 L Glucose 153 H Calcium 8.0 L Direct Bilirubin 0.5 H AST 741 H Alkaline Phosphatase 128 H Urine Protein Urine Blood 05/19/19 22:35 WBC RDW Lymph % (Auto) Absolute Neuts (auto) Seg Neutrophils % PT Potassium Chloride Carbon Dioxide BUN Creatinine Est GFR ( Amer) Est GFR (MDRD) Non-Af Glucose Calcium Direct Bilirubin AST Alkaline Phosphatase Urine Protein 30 H Urine Blood SMALL H - Diagnostic Test Radiology reviewed: Image reviewed, Reports reviewed Radiology results interpreted by me: 05/20/19 00:[address] 05/19/19 22:14 IMPRESSION: Development of hypodensities within the white matter in the right temporal lobe and around the right posterior horn. Further evaluation with an MRI with contrast is recommended. No hemorrhage, midline shift, or herniation. TECHNICAL DOCUMENTATION: Quality ID # 436: Final reports with documentation of one or more dose reduction techniques (e.g., Automated exposure control, adjustment of the mA and/or kV according to patient size, use of iterative reconstruction technique) copyright 2011 [employer]- All Rights Reserved Chest X-Ray 05/19/19 23:02 IMPRESSION: No acute cardiopulmonary findings. Chronic cardiac enlargement. - EKG Interpretation by Me Additional EKG results interpreted by me: 05/20/19 00:33 Atrial fibrillation with a rate of 112 bpm. PVC noted. Normal axis, IVCD. Nonspecific ST changes, but no acute changes concerning for ischemia or infarction. Critical Care Note - Critical Care Note Total time excluding time spent on procedures (mins): 40 Discharge - Discharge Clinical Impression: Morbid obesity with BMI of 40.0-44.9, adult, Hypokalemia Atrial fibrillation Qualifiers: Atrial fibrillation type: longstanding persistent Qualified Code(s): I48.11 - Longstanding persistent atrial fibrillation Sepsis Qualifiers: Sepsis type: sepsis due to unspecified organism Sepsis acute organ dysfunction status: with acute organ dysfunction Severe sepsis acute organ dysfunction type: acute renal failure Acute renal failure type: unspecified Severe sepsis shock status: without septic shock Qualified Code(s): A41.9 - Sepsis, unspecified organism; R65.20 - Severe sepsis without septic shock; N17.9 - Acute kidney failure, unspecified Cerebrovascular accident (CVA) Qualifiers: CVA mechanism: unspecified Qualified Code(s): I63.9 - Cerebral infarction, unspecified Acute renal failure Qualifiers: Acute renal failure type: unspecified Qualified Code(s): N17.9 - Acute kidney failure, unspecified Condition: Stable Disposition: ADMITTED INPATIENT Admitting Provider: Joey (Hospitalist) Unit Admitted: IMCU Referrals: AMY AKERS FNP-C [Primary Care Provider] - Follow up as needed
[2019-05-19 23:06] LABS: URINE AMPHETAMINES SCREEN NEGATIVE; URINE BARBITURATES SCREEN NEGATIVE; URINE BENZODIAZEPINES SCREEN NEGATIVE; URINE COCAINE SCREEN NEGATIVE; URINE MARIJUANA (THC) SCREEN NEGATIVE; URINE METHADONE SCREEN NEGATIVE; URINE PHENCYCLIDINE SCREEN NEGATIVE
--- NOTE | 2019-05-20 00:01 | RADIOLOGY REPORT (SQ) ---
EXAM DESCRIPTION: XR CHEST 1 VIEW COMPLETED DATE/TME: 05/19/2019 23:02 CLINICAL HISTORY: 59 years Female, AMS, leukocytosis COMPARISON: 02/05/19 NUMBER OF VIEWS/TECHNIQUE: 1/AP FINDINGS: Adequate lung volume, clear parenchyma, moderately enlarged cardiac silhouette, and intact bony thorax. IMPRESSION: No acute cardiopulmonary findings. Chronic cardiac enlargement.
--- NOTE | 2019-05-20 00:05 | RADIOLOGY REPORT (SQ) ---
EXAM DESCRIPTION: CT HEAD WITHOUT IV CONTRAST COMPLETED DATE/TME: 05/19/2019 22:14 CLINICAL HISTORY: 59 years, Female, altered mental status COMPARISON: CT and MRI dated 08/15/2018 TECHNIQUE: Axial CT images of the brain were obtained without contrast. Sagittal and coronal reformats were performed. DLP 1017 Images stored on PACS. All CT scanners at this facility use dose modulation, iterative reconstruction, and/or weight based dosing when appropriate to reduce radiation dose to as low as reasonably achievable (ALARA). [facility]: Dose Right [facility]: CareDose [facility]: Dose Right [facility]: Teradose 4D [facility]: [employer] LIMITATIONS: None. FINDINGS: Since the previous examination, hypodensities within the white matter have developed within the right temporal lobe and near the right posterior horn. A dilated perivascular space/old lacunar infarct involving the left basal ganglia is again noted. There is no acute cortical infarct, hemorrhage, mass,, midline shift, or herniation. A mucus retention cyst is in the right maxillary sinus. The mastoid air cells are clear. No depressed calvarial fracture. IMPRESSION: Development of hypodensities within the white matter in the right temporal lobe and around the right posterior horn. Further evaluation with an MRI with contrast is recommended. No hemorrhage, midline shift, or herniation. TECHNICAL DOCUMENTATION: Quality ID # 436: Final reports with documentation of one or more dose reduction techniques (e.g., Automated exposure control, adjustment of the mA and/or kV according to patient size, use of iterative reconstruction technique) copyright 2011 [employer]- All Rights Reserved
--- NOTE | 2019-05-20 00:14 | EKG REPORT ---
SEVERITY:- ABNORMAL ECG - ATRIAL FIBRILLATION, V-RATE 93-134 VENTRICULAR PREMATURE COMPLEX IVCD, CONSIDER ATYPICAL RBBB : Confirmed by: Bambi Brown 20-May-2019 00:14:18
[2019-05-20] MEDS ORDERED: POTASSI CL 40 MEQ/D5-1/2NS 1L 40 MEQ/1,000 ML RTUINJ IV ONE (00:21)
[2019-05-20] MEDS ORDERED: DILTIAZEM HCL INJ 25 MG/5 ML VIAL IV ONE (00:23)
[2019-05-20] MEDS ORDERED: MEROPENEM 1 GM VIAL IV ONE (00:29)
[2019-05-20] MEDS ORDERED: NORMAL SALINE 1000 ML 1,000 ML IV ONE (00:30)
[2019-05-20] MEDS ORDERED: LORAZEPAM INJ 2 MG/1 ML VIAL IV ONE (00:45)
[2019-05-20] MEDS ORDERED: ACETAMINOPHEN 650 MG SUPP.RECT PR PRN (01:12)
[2019-05-20] MEDS ORDERED: ONDANSETRON HCL INJ/PF 4 MG/2 ML SDV IV PRN (01:12)
[2019-05-20] MEDS ORDERED: LEVALBUTEROL HCL NEB 0.63 MG/3 ML AMPUL NEB PRN (01:21)
[2019-05-20] MEDS ORDERED: NICOTINE 21 MG/24 HR PATCH.TD24 TD PRN (01:21)
[2019-05-20] MEDS ORDERED: METOPROLOL TARTRATE PF/INJ 5 MG/5 ML SDV IV PRN (01:21)
[2019-05-20] MEDS ORDERED: HYDRALAZINE HCL INJ/PF 20 MG/1 ML SDV IV PRN (01:21)
[2019-05-20] MEDS ORDERED: INSULIN REG, HUMAN 100 UNIT/ML 3 ML VIAL (PYX) SUBCUT ONE (01:45)
[2019-05-20] MEDS ORDERED: ENOXAPARIN SODIUM INJ 120 MG/0.8 ML DISP.SYRIN SUBCUT ONE (02:00)
[2019-05-20] MEDS: RINGERS SOLUTION,LACTATED 1,000 ML IV PRN ×3 (05:00→21:11)
--- NOTE | 2019-05-20 06:18 | PDOC H&P ---
History of Present Illness Admission Date/PCP: 05/20/2019 00:45 RUCHI ADKINS-Stephanie Patient complains of: Altered mental status History of Present Illness: BARRERA FORD is a 59 year old female who presents the emergency room with acute altered mental status. The patient is unable to provide meaningful input to her care due to her receptive and expressive aphasia. Her son relates that he found her sitting on the toilet today and after she spent several hours there he determined that she was unable to get up and she also did not respond to his verbal inquiries. She suffered no apparent injury thus prompting him to bring her to the hospital. In the emergency room the patient was found to have neglect of her left side and would not follow commands or answer questions. A CT scan of her head revealed multiple new hypodensities within the white matter of the right temporal lobe and around the right posterior horn. Patient was subsequently admitted to the hospital for further evaluation and treatment per the stroke protocol on [facility]. Past Medical History Past Medical History: Patient is unable to provide information for her medical evaluation therefore the best available reliable source is used for obtaining the past medical history, past surgical history, social history and family history. Cardiac Medical History: Reports: Atrial Fibrillation, Hyperlipidema - States in past, but not sure now, Hypertension, Heart Murmur Denies: Congestive Heart Failure, Coronary Artery Disease, Myocardial I nfarction, Peripheral Vascular Disease, Pulmonary Embolism Pulmonary Medical History: Reports: Chronic Obstructive Pulmonary Disease (COPD), Pneumonia, Sleep Apnea Denies: Asthma, Bronchitis, Respiratory Failure, Tuberculosis EENT Medical History: Denies: Cataracts, Ears - Hearing aids Neurological Medical History: Reports: Other - TIA Denies: Hemorrhagic CVA, Ischemic CVA, Seizures Endocrine Medical History: Reports: Diabetes Mellitus Type 2 Denies: Diabetes Mellitus Type 1, Hyperthyroidism, Hypothyroidism Renal/ Medical History: Denies: Chronic Kidney Disease, Nephrolithiasis Malignancy Medical History: Reports: None GI Medical History: Reports: Gastroesophageal Reflux Disease Denies: Cirrhosis, Crohn's Disease, Hepatitis, Hiatal Hernia, Ulcerative Colitis Musculoskeltal Medical History: Reports: Arthritis Denies: Gout Skin Medical History: Denies: Eczema, Psoriasis Psychiatric Medical History: Reports: Depression, Tobacco Dependency, Other - Medical noncompliance Denies: Alcohol Dependency, Bipolar Disorder, Post Traumatic Stress Disorder, Substance Abuse Traumatic Medical History: Reports: None Hematology: Denies: Anemia, Bleeding Tendencies Infectious Medical History: Reports: None Past Surgical History Past Surgical History: Reports: Section Social History Information Source: Relative, [facility] Records Lives with: Family Smoking Status: Current Every Day Smoker Electronic Cigarette use?: No Frequency of Alcohol Use: None Hx Recreational Drug Use: No Drugs: None Hx Prescription Drug Abuse: No - Advance Directive Resuscitation Status: Full Code Surrogate healthcare decision maker:: Sherry Ford Family History Family History: Hypertension. denies: CAD, DM, Malignancy Parental Family History Reviewed: Yes Children Family History Reviewed: No Sibling(s) Family History Reviewed.: Yes Medication/Allergy Home Medications: Albuterol Sulfate [Proair HFA Inhalation Aerosol 8.5 gm MDI] 1 puff IH Q6HP PRN 08/15/18 Apixaban [Eliquis 5 mg Tablet] 5 mg PO Q12 08/15/18 Brexpiprazole [Rexulti] 3 mg PO DAILY 08/15/18 Cyclobenzaprine HCl [Flexeril 10 mg Tablet] 10 mg PO TIDP PRN 08/15/18 Diltiazem HCl [Cardizem 60 mg Tablet] 60 mg PO TID 08/15/18 Ergocalciferol (Vitamin D2) [Drisdol 50,000 unit (1.25MG) Capsule] 50,000 unit PO TH@1000 08/15/18 Fluticasone/Salmeterol [Advair 500-50 Diskus 14 Dose/Diskus] 1 inh IH Q12 08/15/18 Furosemide [Lasix 20 mg Tablet] 20 mg PO DAILY 08/15/18 Naproxen [Naprosyn] 500 mg PO Q12 08/15/18 Omeprazole 20 mg PO BID 08/15/18 Oxcarbazepine [Trileptal] 600 mg PO BID 08/15/18 Oxycodone HCl/Acetaminophen [Percocet 10-325 mg Tablet] 1 each PO Q6HP PRN 08/15/18 Vortioxetine Hydrobromide [Trintellix] 40 mg PO DAILY 08/15/18 Zolpidem Tartrate [Ambien] 10 mg PO QHS 08/15/18 Atorvastatin Calcium [Lipitor 40 mg Tablet] 40 mg PO QHS #30 tablet 08/16/18 Ondansetron HCl [Zofran 4 mg Tablet] 1 - 2 tab PO Q4H PRN #10 tablet 08/16/18 Hydrocodone/Acetaminophen [[place] 5-325 mg Tablet] 1 tab PO Q6 #12 tablet 02/05/19 Lidocaine [Lidoderm 5% (700 mg) Transdermal Patch] 1 patch TP DAILY #12 adh..patch 02/05/19 Furosemide [Lasix 40 mg Tablet] 40 mg PO BID #30 tablet 03/29/19 Allergies/Adverse Reactions: aspirin [Aspirin] Allergy (Intermediate, Verified 02/05/19 12:20) rash, vomiting Review of Systems ROS unobtainable: Due to mental status - Patient has receptive and expressive aphasia and is unable to provide information Physical Exam Vital Signs: Temp Pulse Resp BP Pulse Ox 98 F 113 H 17 124/53 L 97 05/19/19 21:55 05/19/19 21:55 05/19/19 21:55 05/19/19 21:55 05/19/19 22:05 Intake & Output 05/18/19 05/19/19 05/20/19 23:59 23:59 23:59 Intake Total 1000 Balance 1000 Weight 112.4 kg General appearance: PRESENT: no acute distress, other - Uncooperative due to a aphasia Head exam: PRESENT: atraumatic, normocephalic Eye exam: PRESENT: conjunctiva pink, EOMI. ABSENT: conjunctival injection, scleral icterus Ear exam: PRESENT: normal external ear exam. ABSENT: bleeding, drainage Mouth exam: PRESENT: dry mucosa, neck supple Neck exam: ABSENT: thyromegaly, tracheal deviation Respiratory exam: PRESENT: prolonged expiratory phas - Minimally prolonged expiratory phase noted throughout, symmetrical, unlabored, wheezes - Minimal expiratory wheezes noted throughout all walker Cardiovascular exam: PRESENT: irregular rhythm - Irregularly irregular rate and rhythm, tachycardia. ABSENT: clicks, gallop, rubs Pulses: PRESENT: normal radial pulses, normal dorsalis pedis pul Vascular exam: PRESENT: normal capillary refill. ABSENT: pallor GI/Abdominal exam: PRESENT: normal bowel sounds, soft Rectal exam: PRESENT: deferred Extremities exam: ABSENT: joint swelling, pedal edema Musculoskeletal exam: ABSENT: deformity, dislocation Neurological exam: PRESENT: CN II-XII grossly intact - to limited evaluation, aphasic - Expressive and receptive a aphasia, other - Neglect of the left side Psychiatric exam: PRESENT: other - Patient is not verbally responsive and cannot be adequately assessed Skin exam: PRESENT: dry, intact, warm. ABSENT: jaundice, rash, urticaria Results Laboratory Results: 05/19/19 22:25 05/19/19 22:25 05/19/19 05/19/19 05/19/19 22:25 22:25 22:35 WBC 18.1 H RBC 5.26 Hgb 15.2 Hct 46.8 MCV 89 MCH 29.0 MCHC 32.6 RDW 17.5 H Plt Count 213 Seg Neutrophils % 84.0 H Sodium 138.3 Potassium 3.2 L Chloride 90 L Carbon Dioxide 34 H Anion Gap 14 BUN 69 H Creatinine 2.32 H Est GFR ( Amer) 26 L Glucose 153 H Calcium 8.0 L Magnesium 1.7 Total Bilirubin 1.1 AST 741 H Alkaline Phosphatase 128 H Total Protein 7.1 Albumin 4.0 Urine Color YELLOW Urine Appearance CLEAR Urine pH 6.0 Ur Specific [place] 1.016 Urine Protein 30 H Urine Glucose (UA) NEGATIVE Urine Ketones NEGATIVE Urine Blood SMALL H Urine Nitrite NEGATIVE Ur Leukocyte Esterase NEGATIVE Urine WBC (Auto) 1 Urine RBC (Auto) 0 Impressions: Head CT 05/19/19 22:14 IMPRESSION: Development of hypodensities within the white matter in the right temporal lobe and around the right posterior horn. Further evaluation with an MRI with contrast is recommended. No hemorrhage, midline shift, or herniation. TECHNICAL DOCUMENTATION: Quality ID # 436: Final reports with documentation of one or more dose reduction techniques (e.g., Automated exposure control, adjustment of the mA and/or kV according to patient size, use of iterative reconstruction technique) copyright 2011 [employer]- All Rights Reserved Chest X-Ray 05/19/19 23:02 IMPRESSION: No acute cardiopulmonary findings. Chronic cardiac enlargement. Assessment and Plan - Diagnosis (1) Cerebrovascular accident (CVA) Qualifiers: CVA mechanism: unspecified Qualified Code(s): I63.9 - Cerebral infarction, unspecified Is this a current diagnosis for this admission?: Yes (2) Acute renal failure Qualifiers: Acute renal failure type: unspecified Qualified Code(s): N17.9 - Acute kidney failure, unspecified Is this a current diagnosis for this admission?: Yes (3) Hypokalemia Is this a current diagnosis for this admission?: Yes (4) Leukocytosis Qualifiers: Leukocytosis type: unspecified Qualified Code(s): D72.829 - Elevated white blood cell count, unspecified Is this a current diagnosis for this admission?: Yes (5) Chronic atrial fibrillation Is this a current diagnosis for this admission?: Yes (6) Hypertension Qualifiers: Hypertension type: essential hypertension Qualified Code(s): I10 - Essential (primary) hypertension Is this a current diagnosis for this admission?: Yes (7) Diabetes mellitus type 2 in obese Is this a current diagnosis for this admission?: Yes (8) COPD (chronic obstructive pulmonary disease) Qualifiers: Emphysema type: unspecified Is this a current diagnosis for this admission?: Yes (9) Hyperlipidemia Qualifiers: Hyperlipidemia type: unspecified Qualified Code(s): E78.5 - Hyperlipidemia, unspecified Is this a current diagnosis for this admission?: Yes (10) Tobacco use disorder, severe, dependence Is this a current diagnosis for this admission?: Yes (11) Morbid obesity with BMI of 40.0-44.9, adult Is this a current diagnosis for this admission?: Yes - Plan Summary Summary: Patient is admitted to the [facility] via the stroke protocol which she will receive routine supportive and symptomatic cares. She will be evaluated by consult with the stroke team including the stroke nurse, foster care social worker, physical therapy, Occupational Therapy, speech therapy and the registered dietitian. She will undergo further imaging to clarify her evaluation however this can be delayed for short period time until her acute renal failure has improved to the point where she can receive contrast for her MRI which has been recommended by radiology. Vital signs were monitored closely. Before meals and at bedtime Accu-Cheks will be performed with sliding scale insulin for hyperglycemia and a hypoglycemic protocol being in place. Hypertension will be controlled with a target goal of systolic blood pressure less than 160 and diastolic blood pressure less than 100 utilizing IV hydralazine and/or metoprolol. The veronica ent's heart rate will be controlled with metoprolol and/or diltiazem administered intravenously. Serial evaluations of the patient's CBC and metabolic profiles will be obtained as needed. IV meropenem was initiated in the ER and will be continued at a renally adjusted dose until cultures have been negative for 48 to 72 hours. Patient was also started on potassium replacement in the emergency room with a 40 mEq K rider. Patient will be treated with IV fluids utilizing lactated Ringer's at 167 mL/h to accomplish rehydration and volume repletion. - Time Time Spent with patient: 15-24 minutes Medications reviewed and adjusted accordingly: Yes Anticipated discharge: SNF - Inpatient Certification Based on my medical assessment, after consideration of the patient's comorbiditi es, presenting symptoms, or acuity I expect that the services needed warrant INPATIENT care.: Yes I certify that my determination is in accordance with my understanding of [facility]'s requirements for reasonable and necessary INPATIENT services [42 CFR 412.3e].: Yes Medical Necessity: Significant Comorbidiites Make Outpatient Treatment Too Risky, Need Close Monitoring Due to Risk of Patient Decompensation, Need For IV Fluids, Need For Continuous Telemetry Monitoring, Need for Neurological Checks
[2019-05-20] MEDS: INSULIN REG, HUMAN 100 UNIT/ML 3 ML VIAL (PYX) SUBCUT SCH ×3 (07:55→17:12)
[2019-05-20 09:58] LABS: HEMATOCRIT 44.6 % (36.0-47.0); HEMOGLOBIN 14.4 g/dL (12.0-15.5); MEAN CORPUSCULAR HGB CONC 32.2 g/dL (32.0-36.0); MEAN CORPUSCULAR VOLUME 90 fl (80-97); PLATELET COUNT 173 10^3/uL (150-450); RED BLOOD COUNT 4.96 10^6/uL (3.72-5.28); RED CELL DISTRIBUTION WIDTH 17.2 % (11.5-14.0); WHITE BLOOD COUNT 12.2 10^3/uL (4.0-10.5)
[2019-05-20] MEDS ORDERED: MEROPENEM 500 MG VIAL IV SCH (10:00)
[2019-05-20 10:19] LABS: ANION GAP 11 (5-19); CARBON DIOXIDE 32 mmol/L (22-30); CHLORIDE 99 mmol/L (98-107); GLUCOSE 94 mg/dL (75-110); POTASSIUM 3.3 mmol/L (3.6-5.0)
[2019-05-20 10:33] LABS: BLOOD UREA NITROGEN 46 mg/dL (7-20)
[2019-05-20] MEDS ORDERED: INFLUENZA QUAD (6MOS+) 2019-20 VAC 0.5 ML SYR IM ONE (13:37)
[2019-05-20] MEDS ORDERED: DEXTROSE 40% GEL 15 GM TUBE PO PRN ×2 (15:30)
[2019-05-20] MEDS ORDERED: GLUCAGON,HUMAN RECOMB 1 MG INJ IM PRN (15:30)
[2019-05-20] MEDS ORDERED: DEXTROSE 50%-WATER 25 GM/50 ML DISP.SYRIN IV PRN ×2 (15:30)
[2019-05-20] MEDS ORDERED: DIAZEPAM INJ 10 MG/2 ML DISP.SYRIN IV PRN (15:31)
--- NOTE | 2019-05-20 16:39 | RADIOLOGY REPORT (SQ) ---
EXAM DESCRIPTION: CAROTID DOPPLER COMPLETED DATE/TIME: 05/20/2019 4:27 pm REASON FOR STUDY: CVA COMPARISON: 08/15/2018 TECHNIQUE: Grayscale ultrasound, Doppler velocity and spectra, and color Doppler images acquired of the extra-cranial carotid and vertebral arteries. Images stored on PACS. LIMITATIONS: None. FINDINGS: RIGHT CAROTID CCA Velocities: Within normal limits. ICA Velocities Peak systolic 61 cm/s. End diastolic 25 cm/s. Proximal ICA/CCA peak systolic ratio 1.94. Spectra normal. No significant plaque. LEFT CAROTID CCA Velocities: Within normal limits. ICA Velocities Peak systolic 77 cm/s. End diastolic 27 cm/s. Proximal ICA/CCA peak systolic ratio 1.66. Spectra normal. No significant plaque. VERTEBRAL ARTERIES: Antegrade flow. Normal waveforms. SUBCLAVIAN ARTERIES: No finding. OTHER: No other significant finding. IMPRESSION: NO HEMODYNAMICALLY SIGNIFICANT STENOSIS. COMMENT: Quality ID #195: Velocity criteria are extrapolated from the diameter data as defined by t he Society of Radiologists in Ultrasound Consensus Conference. Radiology 2003: 229; 340-346. TECHNICAL DOCUMENTATION: JOB ID: [id number] [employer]- All Rights Reserved Reading location - IP/workstation name: [email or web address] INCIDENT RESPONSE [email or web address]
[2019-05-20] MEDS ORDERED: POTASSIUM CHLORIDE 20 MEQ PACKET PO ONE (17:35)
--- NOTE | 2019-05-20 17:56 | PDOC PROGRESS REPORT ---
Subjective Progress Note for:: 05/20/19 Subjective:: The patient is a 59-year-old female with a past medical history of atrial fibrillation, chronically anticoagulated on Eliquis, hypertension, hyperlipidemia, COPD, sleep apnea, TIAs, DM 2, arthritis, opiate dependent chronic pain, depression, tobacco dependency, and medication noncompliance who was admitted early this morning by the boring machine operator helper for acute CVA. Patient was seen on afternoon rounds with multiple family members present. She was found sitting upright in bed, comfortably, on room air. She was A&O x4 but drowsy. She was able to answer all questions appropriately and follows all commands. She does continue to have delayed speech, slightly slurred, but without facial asymmetry or focal deficits noted. She denies fever, chills, headache, blurred vision, dizziness, chest pain, palpitations, dyspnea, orthopnea, abdominal pain, nausea vomiting diarrhea. Family members have no specific questions or concerns at this time. No concerns per nursing. Reason For Visit: ACUTE RIGHT HEMISPHERE CVS Physical Exam Vital Signs: Temp Pulse Resp BP Pulse Ox 97.4 F 97 16 121/69 92 05/20/19 16:04 05/20/19 16:04 05/20/19 16:04 05/20/19 16:04 05/20/19 16:04 Intake & Output 05/19/19 05/20/19 05/21/19 06:59 06:59 06:59 Intake Total 3000 1000 Balance 3000 1000 Weight 112.4 kg 114.9 kg General appearance: PRESENT: no acute distress, disheveled, hard of hearing, obese, well-developed, well-nourished Head exam: PRESENT: atraumatic, normocephalic Eye exam: PRESENT: conjunctiva pink, EOMI, PERRLA. ABSENT: scleral icterus Mouth exam: PRESENT: moist, tongue midline Teeth exam: PRESENT: poor dentation Neck exam: ABSENT: carotid bruit, JVD, lymphadenopathy, thyromegaly Respiratory exam: PRESENT: clear to auscultation felicity, symmetrical, unlabored. ABSENT: rales, rhonchi, wheezes Cardiovascular exam: PRESENT: irregular rhythm, +S1, +S2. ABSENT: diastolic murmur, rubs, systolic murmur Pulses: PRESENT: normal dorsalis pedis pul Vascular exam: PRESENT: normal capillary refill Rectal exam: PRESENT: deferred Extremities exam: PRESENT: full ROM. ABSENT: calf tenderness, clubbing, pedal edema Neurological exam: PRESENT: alert, awake, oriented to person, oriented to place, oriented to time, oriented to situation, CN II-XII grossly intact, other - drowsy; hot repairman 4/5 bilateral, dorsi/plantar flexion 4/5 bilateral, leg lifts equal, noted to reposition self by supporting weight to left hand/arm. Slight delayed/slurred speech.. ABSENT: motor sensory deficit Psychiatric exam: PRESENT: flat affect, normal mood. ABSENT: homicidal ideation, suicidal ideation Skin exam: PRESENT: dry, intact, warm. ABSENT: cyanosis, rash Results Laboratory Results: 05/20/19 09:24 05/20/19 09:24 05/19/19 05/19/19 05/19/19 22:25 22:25 22:35 WBC 18.1 H RBC 5.26 Hgb 15.2 Hct 46.8 MCV 89 MCH 29.0 MCHC 32.6 RDW 17.5 H Plt Count 213 Seg Neutrophils % 84.0 H Sodium 138.3 Potassium 3.2 L Chloride 90 L Carbon Dioxide 34 H Anion Gap 14 BUN 69 H Creatinine 2.32 H Est GFR ( Amer) 26 L Glucose 153 H Calcium 8.0 L Magnesium 1.7 Total Bilirubin 1.1 AST 741 H Alkaline Phosphatase 128 H Total Protein 7.1 Albumin 4.0 Urine Color YELLOW Urine Appearance CLEAR Urine pH 6.0 Ur Specific [place] 1.016 Urine Protein 30 H Urine Glucose (UA) NEGATIVE Urine Ketones NEGATIVE Urine Blood SMALL H Urine Nitrite NEGATIVE Ur Leukocyte Esterase NEGATIVE Urine WBC (Auto) 1 Urine RBC (Auto) 0 05/20/19 05/20/19 09:24 09:24 WBC 12.2 H RBC 4.96 Hgb 14.4 Hct 44.6 MCV 90 MCH 29.0 MCHC 32.2 RDW 17.2 H Plt Count 173 Seg Neutrophils % Sodium 142.3 Potassium 3.3 L Chloride 99 Carbon Dioxide 32 H Anion Gap 11 BUN 46 H D Creatinine 1.03 Est GFR ( Amer) > 60 Glucose 94 Calcium 8.0 L Magnesium Total Bilirubin AST Alkaline Phosphatase Total Protein Albumin Urine Color Urine Appearance Urine pH Ur Specific [place] Urine Protein Urine Glucose (UA) Urine Ketones Urine Blood Urine Nitrite Ur Leukocyte Esterase Urine WBC (Auto) Urine RBC (Auto) Impressions: Head CT 05/19/19 22:14 IMPRESSION: Development of hypodensities within the white matter in the right temporal lobe and around the right posterior horn. Further evaluation with an MRI with contrast is recommended. No hemorrhage, midline shift, or herniation. TECHNICAL DOCUMENTATION: Quality ID # 436: Final reports with documentation of one or more dose reduction techniques (e.g., Automated exposure control, adjustment of the mA and/or kV according to patient size, use of iterative reconstruction technique) copyright 2011 [employer]- All Rights Reserved Chest X-Ray 05/19/19 23:02 IMPRESSION: No acute cardiopulmonary findings. Chronic cardiac enlargement. Carotid Doppler Study 05/20/19 00:00 IMPRESSION: NO HEMODYNAMICALLY SIGNIFICANT STENOSIS. Assessment and Plan - Diagnosis (1) Cerebrovascular accident (CVA) Qualifiers: CVA mechanism: unspecified Qualified Code(s): I63.9 - Cerebral infarction, unspecified Is this a current diagnosis for this admission?: Yes Plan: CT Head demonstrated hypodensities to the white matter of the right temporal lobe around the right posterior horn; contrasted MRI requested. MRI head with contrast pending. Carotid Doppler is negative for hemodynamically significant stenosis. We will check A1c and lipid panel with a.m. lab work. Patient is admitted to [facility] on continuous cardiac telemetry. We will continue Lovenox in the immediate post CVA window; plan to resume patient's home dose Eliquis prior to discharge. Continue home dose statin. Continue rate control with patient's home dose metoprolol, otherwise allow permissive hypertension. IV hydralazine as needed for blood pressure control. Tight glucose control. Cardiac diet. PT/OT/ST are consulted. Discharge planning is consulted. Smoking cessation encouraged; nicotine replacement therapies provided. (2) Acute renal failure Qualifiers: Acute renal failure type: unspecified Qualified Code(s): N17.9 - Acute kidney failure, unspecified Is this a current diagnosis for this admission?: Yes Plan: Significantly improved. Likely prerenal secondary to poor p.o. intake. Cr 2.32/BUN 69 -> 1.03/46 Continue IVF Avoid nephrotoxic medications as able. Follow up chemistry. (3) Diabetes mellitus type 2 in obese Is this a current diagnosis for this admission?: Yes Plan: A1C with AM lab work. Accu-Cheks before meals and at bedtime with sliding scale insulin. Cardiac/Consistent Carb diet. Hypoglycemia protocol. (4) Hypokalemia Is this a current diagnosis for this admission?: Yes Plan: Improved slightly. Additional oral replacement today. Follow up chemistry. (5) Leukocytosis Qualifiers: Leukocytosis type: unspecified Qualified Code(s): D72.829 - Elevated white blood cell count, unspecified Is this a current diagnosis for this admission?: Yes Plan: Trending down; 18.1-> 12.2. Likely reactive 2/2 acute CVA. Remains afebrile. Urinalysis and CXR are negative. Blood cultures are pending. Currently on meropenem; will continue x48 hrs. (6) COPD (chronic obstructive pulmonary disease) Qualifiers: Emphysema type: unspecified Is this a current diagnosis for this admission?: Yes (7) Chronic atrial fibrillation Is this a current diagnosis for this admission?: Yes Plan: Continue full dose Lovenox; resume Eliquis prior to discharge. Monitor on telemetry. Have resumed home dose metoprolol for rate control. (8) Hyperlipidemia Qualifiers: Hyperlipidemia type: unspecified Qualified Code(s): E78.5 - Hyperlipidemia, unspecified Is this a current diagnosis for this admission?: Yes Plan: Lipid panel w/ AM lab work. Resume home dose atorvastatin. Cardiac diet. (9) Hypertension Qualifiers: Hypertension type: essential hypertension Qualified Code(s): I10 - Essential (primary) hypertension Is this a current diagnosis for this admission?: Yes Plan: Acceptable at present. Resuming metoprolol as above. IV Hydralazine as needed. Permissive HTN x 24 hrs; then gradual BP reduction. Cardiac diet. (10) Tobacco use disorder, severe, dependence Is this a current diagnosis for this admission?: Yes Plan: Smoking cessation encouraged. Nicotine replacement therapies provided. (11) Obesity (BMI 30-39.9) Is this a current diagnosis for this admission?: Yes Plan: BMI 38.5 Dietary and lifestyle modification are encouraged. Patient educator and critical care registered nurse are consulted. Cardiac/consistent carb diet. - Time Time Spent with patient: 25-34 minutes Medications reviewed and adjusted accordingly: Yes Anticipated discharge: Home with Homehealth Within: within 72 hours
[2019-05-20] MEDS: METOPROLOL TARTRATE 25 MG TABLET PO SCH (17:58)
[2019-05-20] MEDS ORDERED: DILTIAZEM HCL 60 MG TABLET PO SCH (18:00)
[2019-05-20] MEDS: ATORVASTATIN CALCIUM 40 MG TABLET PO SCH (21:20)
[2019-05-20] MEDS: ENOXAPARIN SODIUM INJ 120 MG/0.8 ML DISP.SYRIN SUBCUT SCH (21:20)
[2019-05-20] MEDS ORDERED: MEROPENEM 500 MG in NORMAL SALINE 50 ML IV SCH (22:00)
[2019-05-21] MEDS: INSULIN REG, HUMAN 100 UNIT/ML 3 ML VIAL (PYX) SUBCUT SCH ×5 (00:47→21:30)
[2019-05-21 02:35] LABS: APPEARANCE,URINE CLEAR; BILIRUBIN,URINE NEGATIVE (NEGATIVE); COLOR,URINE YELLOW; GLUCOSE, URINE NEGATIVE (NEGATIVE); KETONES,URINE NEGATIVE (NEGATIVE); LEUKOCYTE ESTERASE,URINE NEGATIVE (NEGATIVE); NITRITE,URINE NEGATIVE (NEGATIVE); PROTEIN,URINE NEGATIVE (NEGATIVE); URINE SPECIFIC GRAVITY 1.016
[2019-05-21] MEDS ORDERED: OXYCODONE-ACETAMINOPHEN 5-325 MG TABLET ONE ×2 (03:58→20:41)
[2019-05-21] MEDS: RINGERS SOLUTION,LACTATED 1,000 ML IV PRN (04:02)
[2019-05-21 06:17] LABS: HEMATOCRIT 44.5 % (36.0-47.0); HEMOGLOBIN 14.4 g/dL (12.0-15.5); MEAN CORPUSCULAR HGB CONC 32.3 g/dL (32.0-36.0); MEAN CORPUSCULAR VOLUME 90 fl (80-97); PLATELET COUNT 170 10^3/uL (150-450); RED BLOOD COUNT 4.96 10^6/uL (3.72-5.28); RED CELL DISTRIBUTION WIDTH 17.9 % (11.5-14.0); WHITE BLOOD COUNT 8.6 10^3/uL (4.0-10.5)
[2019-05-21 06:36] LABS: ALBUMIN 3.5 g/dL (3.5-5.0); ALKALINE PHOSPHATASE 120 U/L (38-126); ANION GAP 9 (5-19); ASPARTATE AMINO TRANSFERASE 479 U/L (14-36); BILIRUBIN,DIRECT 0.4 mg/dL (0.0-0.4); BILIRUBIN,TOTAL 1.1 mg/dL (0.2-1.3); CALCIUM 8.6 mg/dL (8.4-10.2); CARBON DIOXIDE 34 mmol/L (22-30); CHLORIDE 99 mmol/L (98-107); CHOLESTEROL 74.45 mg/dL (0-200); GLUCOSE 113 mg/dL (75-110); POTASSIUM 3.4 mmol/L (3.6-5.0); TOTAL PROTEIN 6.5 g/dL (6.3-8.2); TRIGLYCERIDES 128 mg/dL (<150)
[2019-05-21 06:47] LABS: DIRECT LDL 42 mg/dL (<100)
[2019-05-21 06:50] LABS: BLOOD UREA NITROGEN 22 mg/dL (7-20)
[2019-05-21] MEDS ORDERED: (PENDING PHARMACY ID) (Vilazodone Hcl [Viibryd] 40 MG) PO SCH (10:00)
[2019-05-21] MEDS: METOPROLOL TARTRATE 25 MG TABLET PO SCH ×2 (10:02→18:52)
[2019-05-21] MEDS: GABAPENTIN 300 MG CAPSULE PO SCH ×2 (10:03→21:35)
--- NOTE | 2019-05-21 14:09 | PDOC PROGRESS REPORT ---
Subjective Progress Note for:: 05/21/19 Subjective:: The patient is a 59-year-old female with a past medical history of atrial fibrillation, chronically anticoagulated on Eliquis, hypertension, hyperlipidemia, COPD, sleep apnea, TIAs, DM 2, arthritis, opiate dependent chronic pain, depression, tobacco dependency, and medication noncompliance who was admitted early this morning by the flight paramedic for acute CVA. Patient was seen on morning rounds. She was sleeping, but woke easily. Currently on room air. She was A&O x4, answered all questions appropriately and follows all commands. No delayed or slurred speech today and without facial asymmetry or focal deficits noted. She denies fever, chills, headache, blurred vision, dizziness, chest pain, palpitations, dyspnea, orthopnea, abdominal pain, nausea vomiting diarrhea. She has no questions or concerns at this time. No concerns per nursing. Reason For Visit: ACUTE RIGHT HEMISPHERE CVS Physical Exam Vital Signs: Temp Pulse Resp BP Pulse Ox 97.2 F 94 18 139/80 H 98 05/21/19 12:27 05/21/19 11:58 05/21/19 12:27 05/21/19 08:00 05/21/19 08:00 Intake & Output 05/20/19 05/21/19 05/22/19 06:59 06:59 06:59 Intake Total 3000 3580 0 Balance 3000 3580 0 Weight 112.4 kg 114.9 kg General appearance: PRESENT: no acute distress, cooperative, obese, well- developed, well-nourished Head exam: PRESENT: atraumatic, normocephalic Eye exam: PRESENT: conjunctiva pink, EOMI, PERRLA. ABSENT: scleral icterus Mouth exam: PRESENT: moist, tongue midline Teeth exam: PRESENT: poor dentation Neck exam: ABSENT: carotid bruit, JVD, lymphadenopathy, thyromegaly Respiratory exam: PRESENT: clear to auscultation felicity, symmetrical, unlabored. ABSENT: rales, rhonchi, wheezes Cardiovascular exam: PRESENT: RRR, +S1, +S2. ABSENT: diastolic murmur, rubs, systolic murmur Pulses: PRESENT: normal dorsalis pedis pul Vascular exam: PRESENT: normal capillary refill Rectal exam: PRESENT: deferred Extremities exam: PRESENT: full ROM. ABSENT: calf tenderness, clubbing, pedal edema Musculoskeletal exam: PRESENT: ambulatory Neurological exam: PRESENT: alert, awake, oriented to person, oriented to place, oriented to time, oriented to situation, CN II-XII grossly intact. ABSENT: motor sensory deficit Psychiatric exam: PRESENT: appropriate affect, normal mood. ABSENT: homicidal ideation, suicidal ideation Skin exam: PRESENT: dry, intact, warm. ABSENT: cyanosis, rash Results Laboratory Results: 05/21/19 05:54 05/21/19 05:54 05/21/19 05/21/19 05/21/19 02:05 05:54 05:54 WBC 8.6 RBC 4.96 Hgb 14.4 Hct 44.5 MCV 90 MCH 29.0 MCHC 32.3 RDW 17.9 H Plt Count 170 Sodium 141.8 Potassium 3.4 L Chloride 99 Carbon Dioxide 34 H Anion Gap 9 BUN 22 H D Creatinine 0.50 L Est GFR ( Amer) > 60 Glucose 113 H Calcium 8.6 Total Bilirubin 1.1 AST 479 H Alkaline Phosphatase 120 Total Protein 6.5 Albumin 3.5 Triglycerides 128 Cholesterol 74.45 LDL Cholesterol Direct 42 VLDL Cholesterol 26.0 HDL Cholesterol 17 L Urine Color YELLOW Urine Appearance CLEAR Urine pH 6.0 Ur Specific Excel 1.016 Urine Protein NEGATIVE Urine Glucose (UA) NEGATIVE Urine Ketones NEGATIVE Urine Blood NEGATIVE Urine Nitrite NEGATIVE Ur Leukocyte Esterase NEGATIVE Urine WBC (Auto) 5 Urine RBC (Auto) 1 Impressions: Head CT 05/19/19 22:14 IMPRESSION: Development of hypodensities within the white matter in the right temporal lobe and around the right posterior horn. Further evaluation with an MRI with contrast is recommended. No hemorrhage, midline shift, or herniation. TECHNICAL DOCUMENTATION: Quality ID # 436: Final reports with documentation of one or more dose reduction techniques (e.g., Automated exposure control, adjustment of the mA and/or kV according to patient size, use of iterative reconstruction technique) copyright 2011 [employer]- All Rights Reserved Chest X-Ray 05/19/19 23:02 IMPRESSION: No acute cardiopulmonary findings. Chronic cardiac enlargement. Carotid Doppler Study 05/20/19 00:00 IMPRESSION: NO HEMODYNAMICALLY SIGNIFICANT STENOSIS. Assessment and Plan - Diagnosis (1) Cerebrovascular accident (CVA) Qualifiers: CVA mechanism: unspecified Qualified Code(s): I63.9 - Cerebral infarction, unspecified Is this a current diagnosis for this admission?: Yes Plan: CT Head demonstrated hypodensities to the white matter of the right temporal lobe around the right posterior horn; contrasted MRI requested. MRI head with contrast pending. Carotid Doppler is negative for hemodynamically significant stenosis. A1c 7.0%. HDL 17, LDL 42, Trig 128, TChol 74 Patient is admitted to [facility] on continuous cardiac telemetry. We will continue Lovenox in the immediate post CVA window; plan to resume patient's home dose Eliquis prior to discharge. Continue home dose statin. Continue rate control with patient's home dose metoprolol, and 1/2 dose diltiazem. IV hydralazine as needed for blood pressure control. Tight glucose control. Cardiac diet. PT/OT/ST are consulted. Discharge planning is consulted. Smoking cessation encouraged; nicotine replacement therapies provided. (2) Acute renal failure Qualifiers: Acute renal failure type: unspecified Qualified Code(s): N17.9 - Acute kidney failure, unspecified Is this a current diagnosis for this admission?: Yes Plan: Resolved. Likely prerenal secondary to poor p.o. intake. Cr 2.32/BUN 69 -> 1.03/46-> 0.50/22 D/C IVF Avoid nephrotoxic medications as able. Follow up chemistry. (3) Diabetes mellitus type 2 in obese Is this a current diagnosis for this admission?: Yes Plan: A1C 7.0% Accu-Cheks before meals and at bedtime with sliding scale insulin. Cardiac/Consistent Carb diet. Hypoglycemia protocol. Will plan to d/c home on metformin. (4) Hypokalemia Is this a current diagnosis for this admission?: Yes Plan: Improved slightly. Additional oral replacement today. Follow up chemistry; continue to replace as necessary. (5) Leukocytosis Qualifiers: Leukocytosis type: unspecified Qualified Code(s): D72.829 - Elevated white blood cell count, unspecified Is this a current diagnosis for this admission?: Yes Plan: Resolved; 18.1-> 12.2-> 8.6 Likely reactive 2/2 acute CVA. Remains afebrile. Urinalysis and CXR are negative. Blood cultures are negative Patient was empirically placed on meropenem; will d/c today. (6) COPD (chronic obstructive pulmonary disease) Qualifiers: Emphysema type: unspecified Is this a current diagnosis for this admission?: Yes Plan: Stable and without exacerbation at this time. The patient is not on home maintenance inhalers. We will provide as needed nebulizer treatments while admitted. No indications for antibiotic or steroid therapy at this time. (7) Chronic atrial fibrillation Is this a current diagnosis for this admission?: Yes Plan: Continue full dose Lovenox; resume Eliquis prior to discharge. Monitor on telemetry. Have resumed home dose metoprolol and 1/2 home dose diltiazem for rate control. (8) Hyperlipidemia Qualifiers: Hyperlipidemia type: unspecified Qualified Code(s): E78.5 - Hyperlipidemia, unspecified Is this a current diagnosis for this admission?: Yes Plan: Lipid panel w/ AM lab work. Resume home dose atorvastatin. Cardiac diet. (9) Hypertension Qualifiers: Hypertension type: essential hypertension Qualified Code(s): I10 - Essential (primary) hypertension Is this a current diagnosis for this admission?: Yes Plan: Acceptable at present. Resuming metoprolol and diltiazem as above. IV Hydralazine as needed. Permissive HTN x 24 hrs; now beginning gradual BP reduction. Cardiac diet. (10) Tobacco use disorder, severe, dependence Is this a current diagnosis for this admission?: Yes Plan: Smoking cessation encouraged. Nicotine replacement therapies provided. (11) Obesity (BMI 30-39.9) Is this a current diagnosis for this admission?: Yes Plan: BMI 38.5 Dietary and lifestyle modification are encouraged. Patient educator and registered midwife are consulted. Cardiac/consistent carb diet. - Time Time Spent with patient: 25-34 minutes Medications reviewed and adjusted accordingly: Yes Anticipated discharge: Home with Homehealth Within: within 24 hours
[2019-05-21] MEDS: DILTIAZEM HCL 30 MG TABLET PO SCH ×2 (14:29→21:36)
[2019-05-21] MEDS ORDERED: DIAZEPAM INJ 10 MG/2 ML DISP.SYRIN ONE (17:09)
[2019-05-21] MEDS ORDERED: DIAZEPAM INJ 10 MG/2 ML DISP.SYRIN IV ONE (17:30)
--- NOTE | 2019-05-21 20:22 | RADIOLOGY REPORT (SQ) ---
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 COMPARISON: CT scan dated 05/19/2019. TECHNIQUE: Multisequence, multiplanar MR imaging of the brain was performed without the administration of intravenous gadolinium. FINDINGS: There is an area restricted diffusion in the region of the right temporal and parietal lobes consistent with acute infarction. There are also tiny infarcts in the bilateral basal ganglia. There is no intracranial hemorrhage, extra-axial fluid collection, or mass. The brainstem, posterior fossa, and cervicomedullary junction are preserved. The intravascular flow voids are preserved. The orbits are unremarkable. No abnormality of the skull base or calvarium is seen. There is a small retention cyst in the right maxillary sinus. IMPRESSION: 1. Acute infarction in the right parietal and temporal lobes. 2. Tiny lacunar infarcts in the bilateral basal ganglia. 3. No acute intracranial hemorrhage.
[2019-05-21] MEDS: ATORVASTATIN CALCIUM 40 MG TABLET PO SCH (21:35)
[2019-05-21] MEDS: ENOXAPARIN SODIUM INJ 120 MG/0.8 ML DISP.SYRIN SUBCUT SCH (21:36)
[2019-05-21] MEDS ORDERED: OXYCODONE-ACETAMINOPHEN 5-325 MG TABLET PO PRN (22:00)
[2019-05-22] MEDS: DILTIAZEM HCL 30 MG TABLET PO SCH (06:09)
[2019-05-22] MEDS: INSULIN REG, HUMAN 100 UNIT/ML 3 ML VIAL (PYX) SUBCUT SCH (09:07)
[2019-05-22] MEDS: METOPROLOL TARTRATE 25 MG TABLET PO SCH (09:57)
[2019-05-22] MEDS: GABAPENTIN 300 MG CAPSULE PO SCH (09:57)
[2019-05-22 12:46] VITALS: BP 137/78
--- NOTE | 2019-05-22 12:55 | PDOC DISCHARGE SUMMARY ---
Impression - Admit/DC Date/PCP Admission Date/Primary Care Provider: 05/20/19 00:58 KENTRELL ADKINS Discharge Date: 05/22/19 - Discharge Diagnosis (1) Cerebrovascular accident (CVA) Is this a current diagnosis for this admission?: Yes (2) Acute renal failure Is this a current diagnosis for this admission?: Yes (3) Diabetes mellitus type 2 in obese Is this a current diagnosis for this admission?: Yes (4) Hypokalemia Is this a current diagnosis for this admission?: Yes (5) Leukocytosis Is this a current diagnosis for this admission?: Yes (6) COPD (chronic obstructive pulmonary disease) Is this a current diagnosis for this admission?: Yes (7) Chronic atrial fibrillation Is this a current diagnosis for this admission?: Yes (8) Hyperlipidemia Is this a current diagnosis for this admission?: Yes (9) Hypertension Is this a current diagnosis for this admission?: Yes (10) Tobacco use disorder, severe, dependence Is this a current diagnosis for this admission?: Yes (11) Obesity (BMI 30-39.9) Is this a current diagnosis for this admission?: Yes - Additional Information Resuscitation Status: Full Code Discharge Diet: Cardiac, Diabetic Discharge Activity: Balance Activity w/Rest, Slowly Increase Activity Referrals: AMY AKERS FNP-C [Primary Care Provider] - Follow up as needed Prescriptions: Blood-Glucose Meter [Blood Glucose Monitoring] 1 each MC DAILY #1 kit Metformin HCl [Glucophage 500 mg Tablet] 500 mg PO BIDACBS #60 tab Nicotine [Nicoderm 21 mg/24 Hr Transderm Patch] 1 each TD DAILYP PRN #30 patch.td24 PRN Reason: Home Medications: Apixaban [Eliquis 5 mg Tablet] 5 mg PO Q12 08/15/18 Diltiazem HCl [Cardizem 60 mg Tablet] 60 mg PO TID 08/15/18 Omeprazole 20 mg PO DAILY 08/15/18 Atorvastatin Calcium [Lipitor 40 mg Tablet] 40 mg PO QHS #30 tablet 08/16/18 Clonazepam 0.5 mg PO BID 05/20/19 Gabapentin 600 mg PO BID 05/20/19 Metoprolol Tartrate [Lopressor 25 mg Tablet] 25 mg PO BID 05/20/19 Ondansetron HCl [Zofran 4 mg Tablet] 1 - 2 tab PO Q8H PRN 05/20/19 Vilazodone HCl [Viibryd] 40 mg PO TID 05/20/19 Acetaminophen [Tylenol 650 mg Supp] 650 mg FL Q4HP PRN supp.rect 05/22/19 Blood-Glucose Meter [Blood Glucose Monitoring] 1 each MC DAILY #1 kit 05/22/19 Furosemide [Lasix 20 mg Tablet] 20 mg PO DAILY #0 05/22/19 Metformin HCl [Glucophage 500 mg Tablet] 500 mg PO BIDACBS #60 tab 05/22/19 Nicotine [Nicoderm 21 mg/24 Hr Transderm Patch] 1 each TD DAILYP PRN #30 patch.td24 05/22/19 History of Present Illiness History of Present Illness: Per H&P by Dr. Cook: BARRERA FORD is a 59 year old female who presents the emergency room with acute altered mental status. The patient is unable to provide meaningful input to her care due to her receptive and expressive aphasia. Her son relates that he found her sitting on the toilet today and after she spent several hours there he determined that she was unable to get up and she also did not respond to his verbal inquiries. She suffered no apparent injury thus prompting him to bring her to the hospital. In the emergency room the patient was found to have neglect of her left side and would not follow commands or answer questions. A CT scan of her head revealed multiple new hypodensities within the white matter of the right temporal lobe and around the right posterior horn. Patient was subsequently admitted to the hospital for further evaluation and treatment per the stroke protocol on [facility]. Hospital Course Hospital Course: The patient was admitted to [facility] on continuous cardiac telemetry. She was provided daily aspirin and statin therapy. In the initial period, she was provided full dose Lovenox but is discharged home with instructions to resume her Eliquis. She was initially allowed permissive hypertension and her home medication regiment of metoprolol and diltiazem were gradually reinstituted. Carotid Doppler was negative for hemodynamically significant stenosis. Head MRI with contrast revealed an acute infarction of the right parietal and temporal lobes with tiny lacunar infarcts in the bilateral basal ganglia. Laboratory screenings revealed acceptable lipid panel. A1c is noted be elevated to 7.0%. She is started on antidiabetic medications. Physical therapy, Occupational Therapy, and speech therapy services were consulted; all of which have signed off as the patient has no additional rehabilitation needs. Patient is discharged home in stable condition. She is advised to follow-up with her primary care provider within 1 week. She is advised to eat a heart healthy, consistent carb diet. She is instructed to take all medications as prescribed. She is encouraged to stop smoking. She is advised to return to the emergency department as needed for concerning symptoms. Physical Exam Vital Signs: Temp Pulse Resp BP Pulse Ox 97.9 F 82 14 137/78 H 99 05/22/19 11:44 05/22/19 11:44 05/22/19 10:28 05/22/19 11:44 05/22/19 11:44 Intake & Output 05/21/19 05/22/19 05/23/19 06:59 06:59 06:59 Intake Total 3580 1642 Balance 3580 1642 Weight 114.9 kg 115 kg General appearance: PRESENT: no acute distress, disheveled, obese, well- developed, well-nourished Head exam: PRESENT: atraumatic, normocephalic Eye exam: PRESENT: conjunctiva pink, EOMI, PERRLA. ABSENT: scleral icterus Ear exam: PRESENT: normal external ear exam Mouth exam: PRESENT: moist, tongue midline Teeth exam: PRESENT: poor dentation Respiratory exam: PRESENT: clear to auscultation felicity, symmetrical, unlabored. ABSENT: rales, rhonchi, wheezes Cardiovascular exam: PRESENT: RRR. ABSENT: diastolic murmur, rubs, systolic murmur Pulses: PRESENT: normal dorsalis pedis pul Vascular exam: PRESENT: normal capillary refill GI/Abdominal exam: PRESENT: normal bowel sounds, soft. ABSENT: distended, guarding, mass, organolmegaly, rebound, tenderness Rectal exam: PRESENT: deferred Extremities exam: PRESENT: full ROM. ABSENT: calf tenderness, clubbing, pedal edema Musculoskeletal exam: PRESENT: ambulatory Neurological exam: PRESENT: alert, awake, oriented to person, oriented to place, oriented to time, oriented to situation, CN II-XII grossly intact. ABSENT: motor sensory deficit Psychiatric exam: PRESENT: appropriate affect, normal mood. ABSENT: homicidal ideation, suicidal ideation Skin exam: PRESENT: dry, intact, warm. ABSENT: cyanosis, rash Results Laboratory Results: WBC 8.6 10^3/uL (4.0-10.5) 05/21/19 05:54 RBC 4.96 10^6/uL (3.72-5.28) 05/21/19 05:54 Hgb 14.4 g/dL (12.0-15.5) 05/21/19 05:54 Hct 44.5 % (36.0-47.0) 05/21/19 05:54 MCV 90 fl (80-97) 05/21/19 05:54 MCH 29.0 pg (27.0-33.4) 05/21/19 05:54 MCHC 32.3 g/dL (32.0-36.0) 05/21/19 05:54 RDW 17.9 % (11.5-14.0) H 05/21/19 05:54 Plt Count 170 10^3/uL (150-450) 05/21/19 05:54 Lymph % (Auto) 8.6 % (13-45) L 05/19/19 22:25 Webb % (Auto) 7.0 % (3-13) 05/19/19 22:25 Eos % (Auto) 0.0 % (0-6) 05/19/19 22:25 Baso % (Auto) 0.4 % (0-2) 05/19/19 22:25 Absolute Neuts (auto) 15.2 10^3/uL (1.7-8.2) H 05/19/19 22:25 Absolute Lymphs (auto) 1.6 10^3/uL (0.5-4.7) 05/19/19 22:25 Absolute Monos (auto) 1.3 10^3/uL (0.1-1.4) 05/19/19 22:25 Absolute Eos (auto) 0.0 10^3/uL (0.0-0.6) 05/19/19 22:25 Absolute Basos (auto) 0.1 10^3/uL (0.0-0.2) 05/19/19 22:25 Seg Neutrophils % 84.0 % (42-78) H 05/19/19 22:25 PT 17.4 SEC (11.4-15.4) H 05/19/19 22:25 INR 1.41 05/19/19 22:25 APTT 29.3 SEC (23.5-35.8) 05/19/19 22:25 Sodium 141.8 mmol/L (137-145) 05/21/19 05:54 Potassium 3.4 mmol/L (3.6-5.0) L 05/21/19 05:54 Chloride 99 mmol/L (98-107) 05/21/19 05:54 Carbon Dioxide 34 mmol/L (22-30) H 05/21/19 05:54 Anion Gap 9 (5-19) 05/21/19 05:54 BUN 22 mg/dL (7-20) H D 05/21/19 05:54 Creatinine 0.50 mg/dL (0.52-1.25) L 05/21/19 05:54 Est GFR ( Amer) > 60 (>60) 05/21/19 05:54 Est GFR (MDRD) Non-Af > 60 (>60) 05/21/19 05:54 Glucose 113 mg/dL (75-110) H 05/21/19 05:54 POC Glucose 115 mg/dL (70-110) H 05/22/19 11:46 Hemoglobin A1c % 7.0 % (4.7-6.0) H 05/21/19 05:54 Lactic Acid (Sepsis) 1.3 mmol/L (0.7-2.1) 05/19/19 22:25 Calcium 8.6 mg/dL (8.4-10.2) 05/21/19 05:54 Magnesium 1.7 mg/dL (1.6-2.3) 05/19/19 22:25 Total Bilirubin 1.1 mg/dL (0.2-1.3) 05/21/19 05:54 Direct Bilirubin 0.4 mg/dL (0.0-0.4) 05/21/19 05:54 Neonat Total Bilirubin Not Reportable 05/21/19 05:54 Neonat Direct Bilirubin Not Reportable 05/21/19 05:54 Neonat Indirect Bili Not Reportable 05/21/19 05:54 AST 479 U/L (14-36) H 05/21/19 05:54 ALT 424 U/L (<35) 05/21/19 05:54 Alkaline Phosphatase 120 U/L (38-126) 05/21/19 05:54 Total Protein 6.5 g/dL (6.3-8.2) 05/21/19 05:54 Albumin 3.5 g/dL (3.5-5.0) 05/21/19 05:54 Triglycerides 128 mg/dL (<150) 05/21/19 05:54 Cholesterol 74.45 mg/dL (0-200) 05/21/19 05:54 LDL Cholesterol Direct 42 mg/dL (<100) 05/21/19 05:54 VLDL Cholesterol 26.0 mg/dL (10-31) 05/21/19 05:54 HDL Cholesterol 17 mg/dL (>40) L 05/21/19 05:54 Urine Color YELLOW 05/21/19 02:05 Urine Appearance CLEAR 05/21/19 02:05 Urine pH 6.0 (5.0-9.0) 05/21/19 02:05 Ur Specific Henry 1.016 05/21/19 02:05 Urine Protein NEGATIVE mg/dL (NEGATIVE) 05/21/19 02:05 Urine Glucose (UA) NEGATIVE mg/dL (NEGATIVE) 05/21/19 02:05 Urine Ketones NEGATIVE mg/dL (NEGATIVE) 05/21/19 02:05 Urine Blood NEGATIVE (NEGATIVE) 05/21/19 02:05 Urine Nitrite NEGATIVE (NEGATIVE) 05/21/19 02:05 Urine Bilirubin NEGATIVE (NEGATIVE) 05/21/19 02:05 Urine Urobilinogen 2.0 mg/dL (<2.0) H 05/21/19 02:05 Ur Leukocyte Esterase NEGATIVE (NEGATIVE) 05/21/19 02:05 Urine WBC (Auto) 5 /HPF 05/21/19 02:05 Urine RBC (Auto) 1 /HPF 05/21/19 02:05 U Hyaline Cast (Auto) 3 /LPF 05/19/19 22:35 Urine Bacteria (Auto) TRACE /HPF 05/21/19 02:05 Squamous Epi Cells Auto 9 /HPF 05/21/19 02:05 Urine Mucus (Auto) RARE /LPF 05/19/19 22:35 Urine Ascorbic Acid NEGATIVE (NEGATIVE) 05/21/19 02:05 Urine Opiates Screen UNCONFIRMED POSITIVE 05/19/19 22:35 Urine Methadone Screen NEGATIVE 05/19/19 22:35 Ur Barbiturates Screen NEGATIVE 05/19/19 22:35 Ur Phencyclidine Scrn NEGATIVE 05/19/19 22:35 Ur Amphetamines Screen NEGATIVE 05/19/19 22:35 U Benzodiazepines Scrn NEGATIVE 05/19/19 22:35 Urine Cocaine Screen NEGATIVE 05/19/19 22:35 U Marijuana (THC) Screen NEGATIVE 05/19/19 22:35 Serum Alcohol < 10 mg/dL (NONE DETECTED) 05/19/19 22:25 Impressions: Head CT 05/19/19 22:14 IMPRESSION: Development of hypodensities within the white matter in the right temporal lobe and around the right posterior horn. Further evaluation with an MRI with contrast is recommended. No hemorrhage, midline shift, or herniation. TECHNICAL DOCUMENTATION: Quality ID # 436: Final reports with documentation of one or more dose reduction techniques (e.g., Automated exposure control, adjustment of the mA and/or kV according to patient size, use of iterative reconstruction technique) copyright 2011 [employer]- All Rights Reserved Chest X-Ray 05/19/19 23:02 IMPRESSION: No acute cardiopulmonary findings. Chronic cardiac enlargement. Carotid Doppler Study 05/20/19 00:00 IMPRESSION: NO HEMODYNAMICALLY SIGNIFICANT STENOSIS. Head MRI 05/21/19 00:00 IMPRESSION: 1. Acute infarction in the right parietal and temporal lobes. 2. Tiny lacunar infarcts in the bilateral basal ganglia. 3. No acute intracranial hemorrhage. Plan Plan of Treatment: The patient is discharged home with self-care. She is instructed to follow-up with her primary care provider within 1 week. She is educated on the importance of medication noncompliance; specifically her atrial fibrillation rate controlling medications, Eliquis, and statin therapy. She is educated on the importance of blood sugar control and discharged on metformin. She is advised to stop smoking. She is encouraged to return to emergency department as needed for concerning symptoms. Time Spent: Greater than 30 Minutes Stroke Is this a Stroke Patient?: Yes Stroke Pt being discharged on Anti-thrombolytic therapy?: Yes Stroke Pt being discharged on Anti-coagulation therapy?: Yes Stroke Pt being discharged on Statins?: Yes Acute Heart Failure - Is this a Heart Failure Patient?: No
== END 2019-05-22 14:42 | disposition left against medical advice (07) | DRG 65 ==
LOC: ER 21:09 → EH 05-20 00:58 → 3S 05-20 13:33
PROVIDERS: ADMIT Emergency Medicine; ATTEND Emergency Medicine
DX: I63.81 Other cerebral infarction due to occlusion or stenosis of small artery (principal); N17.9 Acute kidney failure, unspecified; Z68.41 Body mass index [BMI] 40.0-44.9, adult; I48.11 Longstanding persistent atrial fibrillation; E11.9 Type 2 diabetes mellitus without complications; E66.9 Obesity, unspecified; E87.6 Hypokalemia; J44.9 Chronic obstructive pulmonary disease, unspecified; E78.5 Hyperlipidemia, unspecified; K21.9 Gastro-esophageal reflux disease without esophagitis; F32.9 Major depressive disorder, single episode, unspecified; F17.210 Nicotine dependence, cigarettes, uncomplicated; I10 Essential (primary) hypertension; G47.30 Sleep apnea, unspecified; G89.29 Other chronic pain; E78.00 Pure hypercholesterolemia, unspecified; R40.2412 Glasgow coma scale score 13-15, at arrival to emergency department; Z91.14 Patient's other noncompliance with medication regimen; Z23 Encounter for immunization; Z79.899 Other long term (current) drug therapy; Z79.84 Long term (current) use of oral hypoglycemic drugs; Z79.01 Long term (current) use of anticoagulants; Z86.73 Personal history of transient ischemic attack (TIA), and cerebral infarction without residual deficits; Z91.19 Patient's noncompliance with other medical treatment and regimen; Z79.891 Long term (current) use of opiate analgesic; Z88.6 Allergy status to analgesic agent
CPT/HCPCS: 36415; 70450; 70551; 71045; 80048; 80053; 80061; 80307; 81001; 82962; 83036; 83605; 83735; 85025; 85027; 85610; 85730; 87040; 93005; 93010; 93880; 96361; 96374; 96375; 99285; J1650; J2060; J2185; J3360; J3480; J3490; J7030; J7120

== ENCOUNTER 2019-07-05 17:51 | Emergency (ER) | payer MEDICAID ==
--- NOTE | 2019-07-05 18:23 | ER Document Report ---
ED Medical Screen (RME) - General Chief Complaint: Chest Pain Stated Complaint: CHEST PAIN Time Seen by Provider: 07/05/19 18:11 Primary Care Provider: AMY AKERS FNP-C [Primary Care Provider] - Follow up as needed TRAVEL OUTSIDE OF THE [place] IN LAST 30 DAYS: No - HPI Notes: 07/05/19 18:21 59-year-old female with history of atrial fibrillation, hypertension, stroke to the emergency department with complaints of chest pain that began yesterday. Patient states that it is midsternal and does not radiate. She states that she does not of shortness of breath, nausea vomiting, diaphoresis. She states she is not sure if this is real chest pain or anxiety. She states she had a stroke about 1 month ago and cannot really remember what happened in the last month. She states she is been starting to remember some of the events and she is feeling anxious. Her daughter states that the patient left the hospital prior to her discharge for her stroke. She states that since then the patient has been forgetful, confused, and not doing very well. She states that the patient often complains of chest pain. She denies any shortness of breath. The patient is on Eliquis. Daughter feels like over the past several days the patient has become more confused. I performed a medical screening exam on the patient determined that she will need further evaluation by me inside provider. I have placed initial orders to help expedite her care. - Related Data Allergies/Adverse Reactions: aspirin [Aspirin] Allergy (Intermediate, Verified 02/05/19 12:20) rash, vomiting Home Medications: Oxycodobne, diltiazem, omeprazole, zolpidem, eliquis, advair Past Medical History - Social History Frequency of alcohol use: None Drug Abuse: None - Past Medical History Cardiac Medical History: Reports: Hx Atrial Fibrillation, Hx Hypercholesterolemia - States in past, but not sure now, Hx Hypertension, Hx Heart Murmur Denies: Hx Congestive Heart Failure, Hx Coronary Artery Disease, Hx Heart Attack, Hx Peripheral Vascular Disease, Hx Pulmonary Embolism Pulmonary Medical History: Reports: Hx COPD, Hx Pneumonia, Hx Sleep Apnea Denies: Hx Asthma, Hx Bronchitis, Hx Respiratory Failure, Hx Tuberculosis Neurological Medical History: Reports: Hx Cerebrovascular Accident. Denies: Hx Seizures Endocrine Medical History: Reports: Hx Diabetes Mellitus Type 2. Denies: Hx Diabetes Mellitus Type 1, Hx Hyperthyroidism, Hx Hypothyroidism Renal/ Medical History: Reports: Hx Ovarian Cysts. Denies: Hx Peritoneal Dialysis GI Medical History: Reports: Hx Gastroesophageal Reflux Disease, Hx Irritable Bowel - DIARRHEA TYPE, Hx Ulcer. Denies: Hx Cirrhosis, Hx Crohn's Disease, Hx Hepatitis, Hx Hiatal Hernia, Hx Pancreatitis, Hx Ulcerative Colitis Musculoskeltal Medical History: Reports Hx Arthritis, Denies Hx Gout, Denies Hx Muscular Dystrophy Skin Medical History: Denies Hx Eczema, Denies Hx Psoriasis Psychiatric Medical History: Reports: Hx Anxiety, Hx Depression Denies: Hx Bipolar Disorder, Hx Post Traumatic Stress Disorder, Hx Schizophrenia Traumatic Medical History: Reports: Hx Fractures - Clavicle, nose, cheek bone Infectious Medical History: Denies: Hx Hepatitis Past Surgical History: Reports: Hx Section. Denies: Hx Appendectomy, Hx Bowel Surgery, Hx Cholecystectomy, Hx Colostomy, Hx Coronary Artery Bypass Graft, Hx Gastric Bypass Surgery, Hx Herniorrhaphy, Hx Hysterectomy, Hx Mastectomy, Hx Pacemaker, Hx Tonsillectomy, Hx Tubal Ligation - Immunizations Hx Diphtheria, Pertussis, Tetanus Vaccination: Yes Physical Exam - Vital signs Vitals: Temp Pulse Resp BP Pulse Ox 98.0 F 81 16 124/77 95 07/05/19 18:05 07/05/19 18:05 07/05/19 18:05 07/05/19 18:05 07/05/19 18:05 Course - Vital Signs Vital signs: Temp Pulse Resp BP Pulse Ox 98.0 F 81 16 124/77 95 07/05/19 18:05 07/05/19 18:05 07/05/19 18:05 07/05/19 18:05 07/05/19 18:05 Doctor's Discharge - Discharge Referrals: AMY AKERS FNP-C [Primary Care Provider] - Follow up as needed
--- NOTE | 2019-07-05 18:49 | RADIOLOGY REPORT (SQ) ---
EXAM DESCRIPTION: CHEST SINGLE VIEW COMPLETED DATE/TIME: 07/05/2019 6:33 pm REASON FOR STUDY: chest pain COMPARISON: 05/19/2019. NUMBER OF VIEWS: One view. TECHNIQUE: Single frontal radiographic view of the chest acquired. LIMITATIONS: None. FINDINGS: LUNGS AND PLEURA: No opacities, masses or pneumothorax. No pleural effusion. MEDIASTINUM AND HILAR STRUCTURES: No masses. Contour normal. HEART AND VASCULAR STRUCTURES: Heart enlarged without failure. Normal vasculature. BONES: No acute findings. HARDWARE: None in the chest. OTHER: No other significant finding. IMPRESSION: HEART ENLARGED WITHOUT FAILURE. NO OTHER SIGNIFICANT RADIOGRAPHIC FINDING IN THE CHEST. TECHNICAL DOCUMENTATION: JOB ID: [id number] [employer]- All Rights Reserved Reading location - IP/workstation name: [email or web address]
--- NOTE | 2019-07-05 19:03 | RADIOLOGY REPORT (SQ) ---
EXAM DESCRIPTION: CT HEAD WITHOUT COMPLETED DATE/TIME: 07/05/2019 6:46 pm REASON FOR STUDY: progressive confusion s/p CVA COMPARISON: CT head 05/19/2019. MRI brain 05/21/2019. TECHNIQUE: Axial images acquired through the brain without intravenous contrast. Images reviewed wi th bone, brain and subdural windows. Additional sagittal and coronal reconstructions were generated. Images stored on PACS. All CT scanners at this facility use dose modulation, iterative reconstruction, and/or weight based d osing when appropriate to reduce radiation dose to as low as reasonably achievable (ALARA). [facility]: Dose Right [facility]: CareDose [facility]: Dose Right [facility]: Teradose 4D [facility]: [employer] RADIATION DOSE: CT Rad equipment meets quality standard of care and radiation dose reduction techniq ues were employed. CTDIvol: 53.2 mGy. DLP: 1044 mGy-cm. mGy. LIMITATIONS: None. FINDINGS: VENTRICLES: Mildly prominent ventricles secondary to involutional atrophy. CEREBRUM: No masses. No hemorrhage. No midline shift. Similar extent of a subacute right parietal- occipital-temporal lobe infarct. No evidence for acute infarction. Normal donahue/white matter differen tiation. No areas of low density in the white matter. CEREBELLUM: No masses. No hemorrhage. No alteration of density. No evidence for acute infarction. EXTRAAXIAL SPACES: No fluid collections. No masses. ORBITS AND GLOBE: No intra- or extraconal masses. Normal contour of globe without masses. CALVARIUM: No fracture. PARANASAL SINUSES: Small right maxillary sinus mucous retention cyst. SOFT TISSUES: No mass or hematoma. OTHER: No other significant finding. IMPRESSION: Similar extent of a subacute right hjyumlth-xraebzkbh-pmvchiqk lobe infarct. No acute h emorrhage or obvious acute ischemic infarct. EVIDENCE OF ACUTE STROKE: NO. COMMENT: Quality ID # [id number]: Final reports with documentation of one or more dose reduction techniques (e.g., Automated exposure control, adjustment of the mA and/or kV according to patient size, use of iterative reconstruction technique) TECHNICAL DOCUMENTATION: JOB ID: [id number] [employer]- All Rights Reserved Reading location - IP/workstation name: [email or web address]
[2019-07-05] MEDS ORDERED: ASPIRIN 81 MG TABLET, CHEWABLE PO ONE (20:15)
[2019-07-05] MEDS ORDERED: ASPIRIN 81 MG TABLET, CHEWABLE ONE (20:19)
[2019-07-05 20:46] LABS: ABSOLUTE BASOPHILS # (AUTO) 0.1 10^3/uL (0.0-0.2); ABSOLUTE EOSINOPHILS # (AUTO) 0.1 10^3/uL (0.0-0.6); ABSOLUTE LYMPHOCYTES (AUTO) 3.3 10^3/uL (0.5-4.7); ABSOLUTE MONOCYTES (AUTO) 0.8 10^3/uL (0.1-1.4); ABSOLUTE NEUT (AUTO) 5.1 10^3/uL (1.7-8.2); BASOPHILS % (AUTO) 1.2 % (0-2); EOSINOPHILS % (AUTO) 1.3 % (0-6); HEMOGLOBIN 16.7 g/dL (12.0-15.5); LYMPHOCYTES % (AUTO) 34.8 % (13-45); MEAN CORPUSCULAR HEMOGLOBIN 29.2 pg (27.0-33.4); MEAN CORPUSCULAR HGB CONC 32.7 g/dL (32.0-36.0); MEAN CORPUSCULAR VOLUME 89 fl (80-97); MONOCYTES % (AUTO) 8.7 % (3-13); PLATELET COUNT 271 10^3/uL (150-450); RED BLOOD COUNT 5.72 10^6/uL (3.72-5.28); RED CELL DISTRIBUTION WIDTH 15.6 % (11.5-14.0); TOTAL CELLS COUNTED % (AUTO) 100 %; WHITE BLOOD COUNT 9.4 10^3/uL (4.0-10.5)
[2019-07-05 21:08] LABS: APPEARANCE,URINE CLEAR; BILIRUBIN,URINE NEGATIVE (NEGATIVE); COLOR,URINE YELLOW; GLUCOSE, URINE NEGATIVE (NEGATIVE); KETONES,URINE NEGATIVE (NEGATIVE); PROTEIN,URINE NEGATIVE (NEGATIVE); URINE SPECIFIC GRAVITY 1.006; UROBILINOGEN,URINE NEGATIVE mg/dL (<2.0)
--- NOTE | 2019-07-05 21:23 | ER Document Report ---
ED General - General Chief Complaint: Chest Pain Stated Complaint: CHEST PAIN Time Seen by Provider: 07/05/19 18:11 Primary Care Provider: AMY AKERS FNP-C [Primary Care Provider] - Follow up as needed Notes: Patient is a 59-year-old female that comes emergency department for chief complaint of chest pain. She states she has an intermittent discomfort in the center of her chest that comes and goes and has been doing this for the past couple of days. She states it is so vague she is not even sure that it is pain but she wants to be checked. She states that almost feels like "nothing" and she states she thinks that it might be "just from anxiety". She denies any current pain. Patient has a history of atrial fibrillation, hypertension, COPD, and a CVA last month that has caused left-sided weakness and difficulty with memory. She is currently on Eliquis. Patient denies history of PA, states she has had stress test before which she cannot remember when the last one was. TRAVEL OUTSIDE OF THE [place] IN LAST 30 DAYS: No - Related Data Allergies/Adverse Reactions: aspirin [Aspirin] Allergy (Intermediate, Verified 02/05/19 12:20) rash, vomiting Home Medications: Oxycodobne, diltiazem, omeprazole, zolpidem, eliquis, advair Past Medical History - General Information source: Patient - Social History Smoking Status: Current Some Day Smoker Frequency of alcohol use: None Drug Abuse: None Lives with: Family Family History: Hypertension. denies: CAD, DM, Malignancy Patient has suicidal ideation: No Patient has homicidal ideation: No - Past Medical History Cardiac Medical History: Reports: Hx Atrial Fibrillation, Hx Hypercholesterolemia - States in past, but not sure now, Hx Hypertension, Hx Heart Murmur Denies: Hx Congestive Heart Failure, Hx Coronary Artery Disease, Hx Heart Attack, Hx Peripheral Vascular Disease, Hx Pulmonary Embolism Pulmonary Medical History: Reports: Hx COPD, Hx Pneumonia, Hx Sleep Apnea Denies: Hx Asthma, Hx Bronchitis, Hx Respiratory Failure, Hx Tuberculosis Neurological Medical History: Reports: Hx Cerebrovascular Accident. Denies: Hx Seizures Endocrine Medical History: Reports: Hx Diabetes Mellitus Type 2. Denies: Hx Diabetes Mellitus Type 1, Hx Hyperthyroidism, Hx Hypothyroidism Renal/ Medical History: Reports: Hx Ovarian Cysts. Denies: Hx Peritoneal Di alysis GI Medical History: Reports: Hx Gastroesophageal Reflux Disease, Hx Irritable Bowel - DIARRHEA TYPE, Hx Ulcer. Denies: Hx Cirrhosis, Hx Crohn's Disease, Hx Hepatitis, Hx Hiatal Hernia, Hx Pancreatitis, Hx Ulcerative Colitis Musculoskeletal Medical History: Reports Hx Arthritis, Denies Hx Gout, Denies Hx Muscular Dystrophy Skin Medical History: Denies Hx Eczema, Denies Hx Psoriasis Psychiatric Medical History: Reports: Hx Anxiety, Hx Depression Denies: Hx Bipolar Disorder, Hx Post Traumatic Stress Disorder, Hx Schizophrenia Traumatic Medical History: Reports: Hx Fractures - Clavicle, nose, cheek bone Infectious Medical History: Denies: Hx Hepatitis Past Surgical History: Reports: Hx Section. Denies: Hx Appendectomy, Hx Bowel Surgery, Hx Cholecystectomy, Hx Colostomy, Hx Coronary Artery Bypass Graft, Hx Gastric Bypass Surgery, Hx Herniorrhaphy, Hx Hysterectomy, Hx Mastectomy, Hx Pacemaker, Hx Tonsillectomy, Hx Tubal Ligation - Immunizations Hx Diphtheria, Pertussis, Tetanus Vaccination: Yes Hx Pneumococcal Vaccination: 09/23/11 Review of Systems - Review of Systems Constitutional: No symptoms reported EENT: No symptoms reported Cardiovascular: See HPI Respiratory: No symptoms reported Gastrointestinal: No symptoms reported Genitourinary: No symptoms reported Female Genitourinary: No symptoms reported Musculoskeletal: No symptoms reported Skin: No symptoms reported Hematologic/Lymphatic: No symptoms reported Neurological/Psychological: See HPI Physical Exam - Vital signs Vitals: Temp Pulse Resp BP Pulse Ox 98.0 F 81 16 124/77 95 07/05/19 18:05 07/05/19 18:05 07/05/19 18:05 07/05/19 18:05 07/05/19 18:05 - Notes Notes: GENERAL: Alert, interacts well. No acute distress. HEAD: Normocephalic, atraumatic. EYES: Pupils equal, round, and reactive to light. Extraocular movements intact. ENT: Oral mucosa moist, tongue midline. Oropharynx unremarkable. Airway patent. LUNGS: Clear to auscultation bilaterally, no wheezes, rales, or rhonchi. No respiratory distress. HEART: Regular rate and rhythm. No murmur ABDOMEN: Soft, non-tender. Non-distended. EXTREMITIES: Moves all 4 extremities spontaneously. No edema, normal radial and dorsalis pedis pulses bilaterally. No cyanosis. BACK: no cervical, thoracic, lumbar midline tenderness. No saddle anesthesia, normal distal neurovascular exam. Moves all extremities in full range of motion. NEUROLOGICAL: Alert and oriented x3. Normal speech. Cranial nerves II through XII grossly intact. 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 PSYCH: Sitting up very straight, talks anxiously SKIN: Warm, dry, normal turgor. No rashes or lesions noted. Course - Re-evaluation Re-evalutation: Patient was initially anxious. When I discussed her initial work-up including CBC, chemistry, negative troponin, negative chest x-ray, unremarkable EKG patient became smiling, calm, relaxed. She states she is ready to leave. Patient states her symptoms have been going on since yesterday, she states that it is so subtle she is not even sure it is chest pain and she was thinks that she is just being anxious. She requests to leave. I recommended a second troponin to complete her evaluation but she declined. CT of the head does not show any significant change compared to prior and she has no new deficits per patient and family. Family states they would like to take her home as well. Because of her extremely atypical symptoms, negative work-up to this point, lack of current symptoms, unremarkable vital signs, patient was discharged with strict return precautions. Patient and family state they will definitely follow-up with her providers and appointments. Stable at time of discharge. - Vital Signs Vital signs: Temp Pulse Resp BP Pulse Ox 97.5 F 68 16 143/87 H 95 07/05/19 23:08 07/05/19 23:08 07/05/19 23:08 07/05/19 23:08 07/05/19 23:08 - Laboratory Result Diagrams: 07/05/19 20:30 07/05/19 21:24 Laboratory results interpreted by me: 07/05/19 07/05/19 20:30 21:24 RBC 5.72 H Hgb 16.7 H Hct 51.0 H RDW 15.6 H Creatinine 0.49 L - EKG Interpretation by Me Additional EKG results interpreted by me: EKG shows atrial fibrillation at a rate of 79, QTC of 459, normal axis, no T wave inversions or ST segment changes in consecutive leads Discharge - Discharge Clinical Impression: Anxiety Chest pain Qualifiers: Chest pain type: unspecified Qualified Code(s): R07.9 - Chest pain, unspecified Condition: Stable Disposition: HOME, SELF-CARE Additional Instructions: Your work-up up to this point does not show any new or concerning findings. Please follow-up with your neurologist for additional evaluation and management. Also see referral listed below, call if needed. Consider taking [id number]-nis-[id number] cetirizine daily to reduce itching from your pain medication. Return for any concerning symptoms including severe headache, vomiting, pain in her chest, passing out, or any other concerning or worsening symptoms. [facility] Neu[facility] [address] [id number] Referrals: AMY AKERS, AREA ATTENDANT-C [Primary Care Provider] - Follow up as needed
[2019-07-05 22:12] LABS: ALBUMIN 3.9 g/dL (3.5-5.0); ALKALINE PHOSPHATASE 125 U/L (38-126); ANION GAP 9 (5-19); ASPARTATE AMINO TRANSFERASE 20 U/L (14-36); BILIRUBIN,DIRECT 0.3 mg/dL (0.0-0.4); BILIRUBIN,TOTAL 1.2 mg/dL (0.2-1.3); BLOOD UREA NITROGEN 8 mg/dL (7-20); CALCIUM 9.6 mg/dL (8.4-10.2); CARBON DIOXIDE 26 mmol/L (22-30); CHLORIDE 103 mmol/L (98-107); GLUCOSE 94 mg/dL (75-110); POTASSIUM 3.9 mmol/L (3.6-5.0); TOTAL PROTEIN 7.4 g/dL (6.3-8.2)
[2019-07-05 23:09] VITALS: BP 143/87
--- NOTE | 2019-07-05 23:18 | EKG REPORT ---
SEVERITY:- ABNORMAL ECG - ATRIAL FIBRILLATION, V-RATE 70-100 NONSPECIFIC INTRAVENTRICULAR CONDUCTION DELAY : Confirmed by: Bambi Brown 05-Jul-2019 23:17:09
== END 2019-07-05 23:28 | disposition home or self-care (01) ==
LOC: ER 17:51
DX: R07.9 Chest pain, unspecified (principal); F41.9 Anxiety disorder, unspecified; I69.354 Hemiplegia and hemiparesis following cerebral infarction affecting left non-dominant side; I69.311 Memory deficit following cerebral infarction; I10 Essential (primary) hypertension; Z79.891 Long term (current) use of opiate analgesic; E11.9 Type 2 diabetes mellitus without complications; J44.9 Chronic obstructive pulmonary disease, unspecified; F17.200 Nicotine dependence, unspecified, uncomplicated; K21.9 Gastro-esophageal reflux disease without esophagitis; I48.91 Unspecified atrial fibrillation; Z79.01 Long term (current) use of anticoagulants; Z88.8 Allergy status to other drugs, medicaments and biological substances; Z79.899 Other long term (current) drug therapy
CPT/HCPCS: 36415; 70450; 71045; 80053; 81001; 83735; 84484; 85025; 93005; 93010; 99285